=== PATIENT | male | born 1945 | race Caucasian/White ===

== ENCOUNTER 2017-07-30 12:48 | Emergency (ER) | payer BC, OTHER ==
[~2017-07-30 12:48] MED LIST: HYDROmorphone INJ 1 MG/ML SYR IV STA; HYDROmorphone INJ 1 MG/ML SYR ONE; ONDANSETRON INJ 2 MG/ML 2 ML VIAL IV STA; ONDANSETRON INJ 2 MG/ML 2 ML VIAL ONE; SODIUM CHLORIDE 0.9% 1000ML 1,000 ML IV STA
[2017-07-30] MEDS ORDERED: CEFAZOLIN SOD 1000MG/5 ML IV PUSH IV STA (12:50)
[2017-07-30] MEDS ORDERED: METRONIDAZOLE 500MG / 100ML NSS IV STA (12:56)
[2017-07-30] MEDS ORDERED: PIPERACILLIN/TAZOBACTAM 4.5 GM/100ML D5W IV STA (13:03)
[2017-07-30 13:15] LABS: BASO % 0.1 %; BASO ABS # 0.01 K/uL (0-0.2); COMPLETE YES; HEMATOCRIT 40.5 % (42-52); IG% 0.3 %; LYMPH % 49.8 %; LYMPH ABS # 4.32 K/uL (1.2-3.4); MEAN CELL VOLUME 93.8 fL (80-100); MEAN CORPUSCULAR HEMOGLOBIN 31.3 pg (25-34); MEAN CORPUSCULAR HGB CONC 33.3 g/dl (32-36); MEAN PLATELET VOLUME 10.9 fL (7.4-10.4); MONO % 6.3 %; NEUT % 42.5 %; PLATELET COUNT 158 K/uL (130-400); RED BLOOD COUNT 4.32 M/uL (4.7-6.1); WHITE BLOOD COUNT 8.67 K/uL (4.8-10.8)
[2017-07-30 13:43] LABS: ALT/SGPT 32 U/L (12-78); AST/SGOT 29 U/L (15-37); BLOOD UREA NITROGEN 14 mg/dl (7-18); BUN/CREATININE RATIO 11.4 (10-20); CALCIUM 9.2 mg/dl (8.5-10.1); CARBON DIOXIDE 25 mmol/L (21-32); CHLORIDE 105 mmol/L (98-107); CREATININE 1.25 mg/dl (0.60-1.40); GLUCOSE 134 mg/dl (70-99); POTASSIUM 3.5 mmol/L (3.5-5.1); SODIUM 139 mmol/L (136-145)
[2017-07-30 13:45] LABS: ALKALINE PHOSPHATASE 99 U/L (45-117)
--- NOTE | 2017-07-30 13:47 | EMERGENCY ROOM VISIT NOTE ---
History Report prepared by Eunice: Mike Velasquez Under the Supervision of: Dr. Blane Dinero M.D. First contact with patient: 12:47 Chief Complaint: OTHER COMPLAINT Stated Complaint: ARM INJURY History of Present Illness The patient is a 72 year old male who presents to the Emergency Room with complaints of a sudden left arm above the elbow amputation occurring 15 minutes prior to arrival. He currently rates his discomfort as a 5/10 in severity. The patient was using a manure burlap spreader, and the arm got caught. The patient denies any loss of consciousness or abdominal pain. The patient denies any past medical history. Source of History: patient Onset: 15 minutes prior to arrival Position: arm (left) Quality: other (amputation) Review of Systems See HPI for pertinent positives & negatives. A total of 10 systems reviewed and were otherwise negative. Family History Patient reports no known family medical history. Social History Smoking Status: Unknown if Ever Smoked Marital Status: Housing Status: lives with family Occupation Status: retired Current/Historical Medications Miscellaneous Medications None (Patient States No Home Meds) Allergies Coded Allergies: No Known Allergies (Unverified Allergy, Mild, 02/19/07) Physical Exam Vital Signs Date Time Temp Pulse Resp B/P (MAP) Pulse Ox O2 Delivery O2 Flow Rate FiO2 07/30/17 14:04 58 20 173/91 96 07/30/17 13:08 57 20 165/89 96 Room Air 07/30/17 13:00 52 140/83 07/30/17 13:00 52 21 140/83 95 Room Air 07/30/17 12:55 52 20 151/92 95 Room Air 07/30/17 12:52 60 07/30/17 12:48 Room Air 07/30/17 12:47 66 20 166/98 98 Room Air Physical Exam GENERAL: Patient is a healthy-appearing well-nourished male HEAD: Normocephalic atraumatic EYES: Ocular movements intact pupils equal and react to light OROPHARYNX mucous membranes are moist no exudates present no erythema or edema present NECK: Supple no nuchal rigidity CHEST: Good equal expansion LUNGS: Clear and equal to auscultation CARDIAC: Normal S1 and S2 ABDOMEN: Soft nontender no guarding BACK: No CVA tenderness EXTREMITIES: There is an amputation above the left elbow. Bleeding is controlled. Left arm is severed. NEURO: Patient is following commands and answering questions appropriately. Alert and oriented x3 Cranial Nerves 2-12 grossly intact Medical Decision & Procedures Laboratory Results 07/30/17 13:01 Red Blood Count 4.32, Mean Corpuscular Volume 93.8, Mean Corpuscular Hemoglobin 31.3, Mean Corpuscular Hemoglobin Concent 33.3, Mean Platelet Volume 10.9, Neutrophils (%) (Auto) 42.5, Lymphocytes (%) (Auto) 49.8, Monocytes (%) (Auto) 6.3, Eosinophils (%) (Auto) 1.0, Basophils (%) (Auto) 0.1, Neutrophils # (Auto) 3.67, Lymphocytes # (Auto) 4.32, Monocytes # (Auto) 0.55, Eosinophils # (Auto) 0.09, Basophils # (Auto) 0.01 07/30/17 13:01 Test 07/30/17 13:01 White Blood Count 8.67 K/uL (4.8-10.8) Red Blood Count 4.32 M/uL (4.7-6.1) Hemoglobin 13.5 g/dL (14.0-18.0) Hematocrit 40.5 % (42-52) Mean Corpuscular Volume 93.8 fL (80-100) Mean Corpuscular Hemoglobin 31.3 pg (25-34) Mean Corpuscular Hemoglobin Concent 33.3 g/dl (32-36) Platelet Count 158 K/uL (130-400) Mean Platelet Volume 10.9 fL (7.4-10.4) Neutrophils (%) (Auto) 42.5 % Lymphocytes (%) (Auto) 49.8 % Monocytes (%) (Auto) 6.3 % Eosinophils (%) (Auto) 1.0 % Basophils (%) (Auto) 0.1 % Neutrophils # (Auto) 3.67 K/uL (1.4-6.5) Lymphocytes # (Auto) 4.32 K/uL (1.2-3.4) Monocytes # (Auto) 0.55 K/uL (0.11-0.59) Eosinophils # (Auto) 0.09 K/uL (0-0.5) Basophils # (Auto) 0.01 K/uL (0-0.2) RDW Standard Deviation 43.9 fL (36.4-46.3) RDW Coefficient of Variation 12.8 % (11.5-14.5) Immature Granulocyte % (Auto) 0.3 % Immature Granulocyte # (Auto) 0.03 K/uL (0.00-0.02) Anion Gap 10.0 mmol/L (3-11) Estimated GFR () 65.8 Estimated GFR (Non- 56.8 BUN/Creatinine Ratio 11.4 (10-20) Calcium Level 9.2 mg/dl (8.5-10.1) Total Bilirubin 0.4 mg/dl (0.2-1) Direct Bilirubin < 0.1 mg/dl (0-0.2) Aspartate Amino Transf (AST/SGOT) 29 U/L (15-37) Alanine Aminotransferase (ALT/SGPT) 32 U/L (12-78) Alkaline Phosphatase 99 U/L (45-117) Total Protein 7.8 gm/dl (6.4-8.2) Albumin 3.8 gm/dl (3.4-5.0) Labs reviewed by ED physician. Medications Administered Medications (Trade) Dose Ordered Sig/Nicolle Route Start Time Stop Time Status Last Admin Dose Admin Hydromorphone HCl (Dilaudid Inj) 1 mg NOW STAT IV 07/30/17 12:48 07/30/17 12:49 DC 07/30/17 12:53 1 MG Ondansetron HCl (Zofran Inj) 4 mg NOW STAT IV 07/30/17 12:48 07/30/17 12:49 DC 07/30/17 12:53 4 MG Sodium Chloride 1,000 ml @ 999 mls/hr Q1H1M STAT IV 07/30/17 12:48 07/30/17 13:52 DC 07/30/17 12:48 999 MLS/HR Cefazolin Sodium (Cefazolin 1000mg Iv Push) 1,000 mg NOW STAT IV 07/30/17 12:50 07/30/17 12:52 DC 07/30/17 12:54 1,000 MG Metronidazole (Flagyl / Nss) 500 mg NOW STAT IV 07/30/17 12:56 07/30/17 13:01 DC 07/30/17 12:56 500 MG Piperacillin Sod/ Tazobactam Sod (Zosyn Iv) 4.5 gm NOW STAT IV 07/30/17 13:03 07/30/17 13:05 DC 07/30/17 13:03 4.5 GM ED Course 1247: Past medical records reviewed. The patient was evaluated in room B1. A complete history and physical examination was performed. 1248: Sodium Chloride 1000 ml @ 999 mls/hrIV, Zofran 4mg IV, Dilaudid 1mg IV 1250: Cefazolin Sodium 1000mg IV 1253: I discussed the patient's case with Dr. Zuniga, [facility], and he is going to accept the patient as a transfer. 1256: Flagyl/ NSS 500mg IV 1257: I spoke to Doc Fair [facility], for insurance reasons so that he could go to [place]. 1303: Zosyn 4.5gm IV 1315: The patient was ready for life flight, and he will be transferred. Medical Decision Differential diagnosis: Etiologies such as fracture, dislocation, intra-abdominal, pneumothorax, intrathoracic , intracranial, neurologic, as well as other traumatic pathologies were entertained. This is a 72-year-old male who presents emergency Department with an amputated left arm. The arm was wrapped with wet to dry dressings and double bagged and placed in ice water. Bleeding was controlled with pressure. Wet-to-dry dressings were placed. An IV was established 2, the patient was given Dilaudid , Ancef. Due to the nature the patient's injuries he was discussed with [facility] trauma team. The patient was transferred via [facility]. Due to the patient's insurance [facility] emergency department was also contacted however they cannot handle amputations. Dr. Fair approved transferred to [facility]. Patient was in agreement with the treatment plan. Medication Reconcilliation Current Medication List: was personally reviewed by me Blood Pressure Screening Patient's blood pressure: Elevated blood pressure Blood pressure disposition: Elevated BP felt to be situational Consults Time Called: 1246 Consulting Physician: Dr. Zuniga, [facility] Returned Call: [phone] I discussed the patient's case with Dr. Zuniga, [facility], and he is going to accept the patient as a transfer. Impression Primary Impression: Amputation of left arm Critical Care I have personally spent greater than 30 minutes of critical care time in the direct management of this patient. This includes bedside care, interpretation of diagnostic studies, and testing, discussion with consultants, patient, and family members, and other required patient management activities. This 30 minutes is in excess of all separately billable procedures. Scribe Attestation The scribe's documentation has been prepared under my direction and personally reviewed by me in its entirety. I confirm that the note above accurately reflects all work, treatment, procedures, and medical decision making performed by me. Departure Information Dispostion Transfer Acute Care Facility Referrals Jared Meza M.D. (PCP) Patient Instructions [facility]
[2017-07-30 14:04] VITALS: BP 173/91; PULSE 58; O2SAT 96
== END 2017-07-30 14:05 | disposition short-term general hospital (02) ==
LOC: EDSEX 12:48 → EDBD 12:48 → C.EDB 12:49
DX: S48.11 Complete traumatic amputation at level between shoulder and elbow (principal); W30.89XA Contact with other specified agricultural machinery, initial encounter; Y92.79 Other farm location as the place of occurrence of the external cause

== ENCOUNTER 2024-01-23 10:53 | Inpatient (IN) ==
[2024-01-23] MEDS: OPTIRAY 320 125ml IV ONE (10:48)
[2024-01-23] MEDS: niCARdipine 25 MG in SODIUM CHLORIDE 0.9% 240 ML IV SCH (11:17)
[2024-01-23] MEDS: STAT IV Infusion **Titration per Protocol STA (11:18)
--- NOTE | 2024-01-23 11:21 | CT Scan Report ---
HEAD CT NONCONTRAST CT DOSE: 1253.6 mGy.cm HISTORY: Left-sided weakness for neuro deficit, acute stroke suspected TECHNIQUE: Multiaxial CT images of the head were performed without the use of intravenous contrast. A utomated exposure control was utilized for this study. A dose lowering technique was utilized adheri ng to the principles of ALARA. Comparison: None. Findings: Near complete opacification of the left sphenoid sinus. The mastoid air cells are clear. Th e calvarium and skull base are intact. The ventricles and sulci are within normal limits. There is no mass, hematoma, midline shift, or acute infarct. Impression: No acute intracranial abnormality. ACT 112: Negative or not required by law. Electronically signed by: Jarad Ruby M.D. 01/23/2024 11:19 AM
[2024-01-23 11:22] LABS: Basophils # (auto) 0.02 K/uL (0.00-0.20); Basophils % (auto) 0.2 %; Eosinophils # (auto) 0.02 K/uL (0.00-0.50); Eosinophils % (auto) 0.2 %; Hematocrit (blood only) 36.6 % (42.0-52.0); Immature Granulocytes # (auto) 0.08 K/uL (0.01-0.20); Immature Granulocytes % (auto) 0.8 %; Lymphocytes # (auto) 3.69 K/uL (1.20-3.40); Lymphocytes % (auto) 35.5 %; Mean Corpuscular Hemoglobin 29.7 pg (25.0-34.0); Mean Corpuscular Hgb Conc 32.8 g/dL (32.0-36.0); Mean Corpuscular Volume 90.6 fL (80.0-100.0); Mean Platelet Volume 10.8 fL (9.4-12.4); Monocytes # (auto) 0.83 K/uL (0.11-0.59); Neutrophils # (auto) 5.75 K/uL (1.40-6.50); Neutrophils % (auto) 55.3 %; Platelet Count 162 K/uL (130-400); RDW Coefficient of Variation 12.6 % (11.5-14.5); RDW Standard Deviation 41.6 fL (36.4-46.3); Red Blood Count 4.04 M/uL (4.70-6.10); White Blood Count 10.39 K/ul (4.8-10.8)
[2024-01-23 11:24] LABS: iSTAT Creatinine 0.8 mg/dl (0.6-1.3); iSTAT Hemoglobin 11.9 g/dl (14.0-18.0); iSTAT Ionized Calcium 1.21 mmol/l (1.12-1.32); iSTAT Potassium 3.8 mmol/L (3.3-5.0)
--- NOTE | 2024-01-23 11:28 | CT Scan Report ---
HEAD & NECK CTA HISTORY: neuro deficit, acute stroke suspected TECHNIQUE: Multiaxial CT images of the head were performed following the intravenous administration o f contrast to evaluate the major cerebral vessels. Multiaxial CT images of the neck were also perform ed following the intravenous administration of contrast to evaluate the major cervical vessels. 3D/MO P images were also obtained. Sagittal and coronal reformats were reviewed. A dose lowering technique was utilized adhering to the principles of ALARA. COMPARISON: None. FINDINGS: There is no mass, hematoma, midline shift, or acute infarct. Visualized intracranial internal carotid arteries, distal vertebral arteries, and basilar artery are widely patent. There is no significant s tenosis, occlusion, or aneurysm seen within the bilateral ACAs or MCAs. There is mild to moderate mul tifocal stenosis within the proximal to mid bilateral news cameraman. . The major dural venous sinuses are oh nt. The aortic arch and proximal great vessels are widely patent. There is 1.6 cm right thyroid nodule. Mild to moderate focal narrowing at the origins of the vertebral arteries due to the calcified plaqu e. Otherwise, the remaining bilateral vertebral arteries show no significant stenosis, occlusion, or dissection. Moderate calcified plaque within the bilateral carotid bifurcations. The bilateral common carotid arteries are widely patent. No significant stenosis or occlusion within the right internal c arotid artery. There is severe focal stenosis within the takeoff of the left internal carotid artery demonstrating approximately 90% narrowing. The mid to distal left internal carotid artery is widely p atent. IMPRESSION: 1. Mild to moderate multifocal stenosis within the proximal to mid bilateral news cameraman. 2. However, no evidence for arterial occlusion or aneurysm within the major cerebral arteries. 3. High-grade stenosis at the takeoff of the left internal carotid artery of approximately 90%. 4. Mild to moderate stenosis at the takeoff of the bilateral vertebral arteries due to the calcified plaque. 5. A 1.6 cm right thyroid nodule ACT 112: Negative or not required by law. Electronically signed by: Jarad Ruby M.D. 01/23/2024 11:25 AM
--- NOTE | 2024-01-23 11:28 | CT Scan Report ---
HEAD & NECK CTA HISTORY: neuro deficit, acute stroke suspected TECHNIQUE: Multiaxial CT images of the head were performed following the intravenous administration o f contrast to evaluate the major cerebral vessels. Multiaxial CT images of the neck were also perform ed following the intravenous administration of contrast to evaluate the major cervical vessels. 3D/LA P images were also obtained. Sagittal and coronal reformats were reviewed. A dose lowering technique was utilized adhering to the principles of ALARA. COMPARISON: None. FINDINGS: There is no mass, hematoma, midline shift, or acute infarct. Visualized intracranial internal carotid arteries, distal vertebral arteries, and basilar artery are widely patent. There is no significant s tenosis, occlusion, or aneurysm seen within the bilateral ACAs or MCAs. There is mild to moderate mul tifocal stenosis within the proximal to mid bilateral water chaser. . The major dural venous sinuses are oh nt. The aortic arch and proximal great vessels are widely patent. There is 1.6 cm right thyroid nodule. Mild to moderate focal narrowing at the origins of the vertebral arteries due to the calcified plaqu e. Otherwise, the remaining bilateral vertebral arteries show no significant stenosis, occlusion, or dissection. Moderate calcified plaque within the bilateral carotid bifurcations. The bilateral common carotid arteries are widely patent. No significant stenosis or occlusion within the right internal c arotid artery. There is severe focal stenosis within the takeoff of the left internal carotid artery demonstrating approximately 90% narrowing. The mid to distal left internal carotid artery is widely p atent. IMPRESSION: 1. Mild to moderate multifocal stenosis within the proximal to mid bilateral water chaser. 2. However, no evidence for arterial occlusion or aneurysm within the major cerebral arteries. 3. High-grade stenosis at the takeoff of the left internal carotid artery of approximately 90%. 4. Mild to moderate stenosis at the takeoff of the bilateral vertebral arteries due to the calcified plaque. 5. A 1.6 cm right thyroid nodule ACT 112: Negative or not required by law. Electronically signed by: Jarad Ruby M.D. 01/23/2024 11:25 AM
[2024-01-23 11:31] LABS: Partial Thromboplastin Ratio 0.8; Partial Thromboplastin Time 22 Seconds (21-31); Prothrombin Time 10.9 Seconds (9.0-12.0)
[2024-01-23 11:41] LABS: Albumin Globulin Ratio 1.1 (0.9-2); Albumin Level 3.5 gm/dl (3.4-5.0); BUN Creatinine Ratio 18.5 (10-20); Bilirubin,Total 0.4 mg/dl (0.2-1.0); Calcium 8.8 mg/dl (8.6-10.3); Creatinine Clr Calc Pharmacy 80.1 ml/min; Est GFR (Non-African American) 84.5 ml/min; Globulin 3.2 gm/dl (2.5-4.0); Potassium 3.8 mmol/L (3.5-5.1); Total Protein 6.7 gm/dl (6.0-8.3)
[2024-01-23] MEDS ORDERED: No Aspirin within 24hrs of THROMBOLYTIC-Stroke PO SCH (11:45)
[2024-01-23] MEDS: TENECTEPLASE 19 MG in SYRINGE 0 ML IV ONE (11:45)
[2024-01-23 11:47] LABS: Troponin I High Sensitivity 7.3 pg/ml (0-20)
[2024-01-23] MEDS: SODIUM CHLORIDE 0.9% 10ML FLUSH IV STA (11:47)
[2024-01-23] MEDS: MAGNESIUM SULFATE / D5W 1 GM/100 ML BAG IV SCH (11:49)
[2024-01-23] MEDS: STAT IV/IM STA (11:51)
--- NOTE | 2024-01-23 12:03 | Emergency Department Note ---
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 Apparently at 930 this morning the patient was at amish, felt weak and sat down. The patient reportedly lost consciousness. At some point bystanders noticed that he had a left-sided facial droop. He was unable to use his left leg. The patient never woke up completely. He is repetitive with his speech. Patient apparently vomited prior to arrival with EMS. He is not on any blood thinners by report. According to his , last evening he had an episode that he reported to her, he was unable to speak, had some shaking of his left upper extremity stump which lasted a few minutes. After it was over, he was able to get up and ambulate to the bedroom where his was. She stated he was not altered and had no symptoms before this episode and at the time she was speaking to him. He was okay this morning when he woke up and got ready for amish. REVIEW OF SYSTEMS: A review of systems was performed with positives and pertinent negatives listed in the history of present illness. 10 systems were reviewed and are otherwise negative. ALLERGIES: see below MEDICATIONS: see below PMH: see below SOCIAL HISTORY: see below DDx: Ischemic stroke, arterial dissection, intracranial hemorrhage, seizure activity, intracranial mass, among others. PHYSICAL EXAM: Vital signs reviewed. Noted to be hypertensive General: Well-appearing 78-year-old male, in no significant distress. HEENT: No scleral icterus, PERRLA, neck supple. MMM Cardiovascular: Regular rate and rhythm, no extra sounds. Pulmonary: Clear to auscultation bilaterally, normal work of breathing. Abdomen: Soft, nontender, nondistended, positive bowel sounds. Musculoskeletal: Atraumatic, no peripheral edema. Left upper extremity above the elbow amputation. Neurologic: Patient somnolent but arousable, clear left-sided mouth droop, upper facial movements appear to be symmetric. Patient is unable to move the left upper stump, left leg. 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 Patient repeats "I do not know" in response to questions about age and birthdate. Skin: Warm, dry, no rash EMERGENCY DEPARTMENT COURSE/MDM: This patient was evaluated and appeared to be in no significant distress. He is somnolent but arousable. A stroke alert was called prior to the patient's arrival by EMS medical command. CT imaging of the head was performed and is negative for acute process. CT angiograms are not negative for any acute arterial occlusion however high-grade stenosis is identified in the left internal carotid artery with multifocal stenosis in the proximal and mid bilateral railcar carpenter. Dr. Presley of the telestroke at [facility] was able to consult through the stroke cart. After discussion with the patient's at the bedside, was decided that the patient is a TNKase candidate. Stroke symptoms began at 9:30 AM, patient was medicated with TNKase at 11:46 AM. He was given 2 g of IV magnesium for neuroprotective effect per Dr. Presley's request. Case has been discussed with the hospitalist service who will evaluate the patient for admission and further management. MONITORING: An order for cardiac monitoring was placed and the patient is noted to be in a NSR at 65 beats per minute. RADIOLOGY: CT imaging of the head to my interpretation reveals no evidence of acute intracranial process. Please defer to radiology is over read. CT angiogram of the head and neck per radiology: IMPRESSION: 1. Mild to moderate multifocal stenosis within the proximal to mid bilateral railcar carpenter. 2. However, no evidence for arterial occlusion or aneurysm within the major cerebral arteries. 3. High-grade stenosis at the takeoff of the left internal carotid artery of approximately 90%. 4. Mild to moderate stenosis at the takeoff of the bilateral vertebral arteries due to the calcified plaque. 5. A 1.6 cm right thyroid nodule EKG: To my interpretation reveals normal sinus rhythm at 64 bpm. Minimal criteria for LVH. QTc of 455. No PVC, no PAC. Normal ST segments. DISPOSITION: Admission I have personally spent greater than 50 minutes of critical care time in the direct management of this patient. This includes bedside care, interpretation of diagnostic studies, and testing, discussion with consultants, patient, and family members, and other required patient management activities. This 50 minutes is in excess of all separately billable procedures. Past Med/Surg History Medical History Lyme disease Surgical History Amputation of left arm Family History Father Myocardial infarction Coronary heart disease Social History Smoking Status: Never smoker Hx Alcohol Use: Yes Hx Substance Use: No Preferred Language: Moldovan Communication Ability: Effective Hearing Ability: Normal marital status: Current Living Situation: Spouse current occupational status: retired Feels Safe at Home: Yes Seatbelt Use: always Sunscreen Use: No Allergies Allergies Allergy/AdvReac Type Severity Reaction Status Date / Time No Known Allergies Allergy Mild Verified 01/23/24 13:51 Home Meds Home Medications Medication Instructions Recorded Confirmed ascorbic acid (vitamin C) 500 mg 1,000 mg PO DAILY 01/23/24 01/23/24 tablet (Vitamin C) multivitamin 1 tab PO DAILY 01/23/24 01/23/24 Results & Data (ED) Vital Signs Vital Signs - 24 hr 01/23/24 11:00 01/23/24 11:03 01/23/24 11:06 Pulse Rate 68 64 67 Pulse Rate [Apical] Pulse Rate from SpO2 Sensor Pulse Rhythm Regular Pulse Rhythm [Apical] Pulse Strength Normal Pulse Strength [Apical] Respiratory Rate 15 22 Respiratory Effort / Characteristics Non-Labored Respiratory Depth Normal Respiratory Pattern Regular Blood Pressure 182/105 H 195/102 H Blood Pressure [Right Arm] Blood Pressure Mean 130 133 Blood Pressure Mean [Right Arm] Blood Pressure Position Lying Blood Pressure Position [Right Arm] Pulse Oximetry 99 95 Oxygen Delivery Method Room Air Oxygen Flow Rate Sepsis Recent Fever Within 48 Hours No Sepsis New/Unexplained Change in Mental Status No Sepsis Action Taken by Nursing No Action Required 01/23/24 11:20 01/23/24 11:20 01/23/24 11:30 Pulse Rate 65 68 65 Pulse Rate [Apical] Pulse Rate from SpO2 Sensor 68 Pulse Rhythm Pulse Rhythm [Apical] Pulse Strength Pulse Strength [Apical] Respiratory Rate 22 16 23 Respiratory Effort / Characteristics Respiratory Depth Respiratory Pattern Blood Pressure 172/100 H 172/100 H 181/95 H Blood Pressure [Right Arm] Blood Pressure Mean 124 124 123 Blood Pressure Mean [Right Arm] Blood Pressure Position Blood Pressure Position [Right Arm] Pulse Oximetry 94 95 90 Oxygen Delivery Method Room Air Room Air Oxygen Flow Rate Sepsis Recent Fever Within 48 Hours Sepsis New/Unexplained Change in Mental Status Sepsis Action Taken by Nursing 01/23/24 11:35 01/23/24 11:40 01/23/24 11:45 Pulse Rate 65 65 Pulse Rate [Apical] 65 Pulse Rate from SpO2 Sensor Pulse Rhythm Pulse Rhythm [Apical] Pulse Strength Pulse Strength [Apical] Respiratory Rate 18 23 23 Respiratory Effort / Characteristics Non-Labored Respiratory Depth Normal Respiratory Pattern Regular Blood Pressure 177/92 H 169/96 H Blood Pressure [Right Arm] 172/93 H Blood Pressure Mean 120 120 Blood Pressure Mean [Right Arm] 119 Blood Pressure Position Blood Pressure Position [Right Arm] Pulse Oximetry 93 93 93 Oxygen Delivery Method Room Air Room Air Room Air Oxygen Flow Rate Sepsis Recent Fever Within 48 Hours Sepsis New/Unexplained Change in Mental Status Sepsis Action Taken by Nursing 01/23/24 11:45 01/23/24 11:51 01/23/24 12:00 Pulse Rate 65 63 Pulse Rate [Apical] 62 Pulse Rate from SpO2 Sensor Pulse Rhythm Pulse Rhythm [Apical] Regular Pulse Strength Pulse Strength [Apical] Normal Respiratory Rate 19 19 15 Respiratory Effort / Characteristics Non-Labored Spontaneous Respiratory Depth Normal Respiratory Pattern Regular Blood Pressure 172/93 H 160/93 H Blood Pressure [Right Arm] 166/97 H Blood Pressure Mean 121 115 Blood Pressure Mean [Right Arm] 120 Blood Pressure Position Blood Pressure Position [Right Arm] Lying Pulse Oximetry 90 94 94 Oxygen Delivery Method Nasal Cannula Nasal Cannula Oxygen Flow Rate 2 2 Sepsis Recent Fever Within 48 Hours Sepsis New/Unexplained Change in Mental Status Sepsis Action Taken by Nursing 01/23/24 12:00 01/23/24 12:10 01/23/24 12:15 Pulse Rate 63 60 Pulse Rate [Apical] 59 L Pulse Rate from SpO2 Sensor Pulse Rhythm Pulse Rhythm [Apical] Pulse Strength Pulse Strength [Apical] Respiratory Rate 22 24 17 Respiratory Effort / Characteristics Non-Labored Spontaneous Respiratory Depth Normal Respiratory Pattern Regular Blood Pressure 166/97 H 170/90 H Blood Pressure [Right Arm] 181/100 H Blood Pressure Mean 120 116 Blood Pressure Mean [Right Arm] 127 Blood Pressure Position Blood Pressure Position [Right Arm] Pulse Oximetry 96 96 95 Oxygen Delivery Method Nasal Cannula Nasal Cannula Oxygen Flow Rate 2 2 Sepsis Recent Fever Within 48 Hours Sepsis New/Unexplained Change in Mental Status Sepsis Action Taken by Nursing 01/23/24 12:20 01/23/24 12:30 05/05/24 12:40 Pulse Rate 59 L 60 Pulse Rate [Apical] 60 Pulse Rate from SpO2 Sensor Pulse Rhythm Pulse Rhythm [Apical] Regular Pulse Strength Pulse Strength [Apical] Normal Respiratory Rate 18 17 21 Respiratory Effort / Characteristics Non-Labored Spontaneous Respiratory Depth Normal Respiratory Pattern Regular Blood Pressure 169/91 H 189/107 H Blood Pressure [Right Arm] 165/94 H Blood Pressure Mean 117 134 Blood Pressure Mean [Right Arm] 117 Blood Pressure Position Blood Pressure Position [Right Arm] Lying Pulse Oximetry 96 94 97 Oxygen Delivery Method Nasal Cannula Nasal Cannula Nasal Cannula Oxygen Flow Rate 2 2 2 Sepsis Recent Fever Within 48 Hours Sepsis New/Unexplained Change in Mental Status Sepsis Action Taken by Nursing 01/23/24 12:45 01/23/24 12:51 01/23/24 13:00 Pulse Rate 61 Pulse Rate [Apical] 61 65 Pulse Rate from SpO2 Sensor Pulse Rhythm Pulse Rhythm [Apical] Regular Regular Pulse Strength Pulse Strength [Apical] Normal Normal Respiratory Rate 24 24 22 Respiratory Effort / Characteristics Non-Labored Spontaneous Non-Labored Respiratory Depth Normal Normal Respiratory Pattern Regular Regular Blood Pressure 172/101 H Blood Pressure [Right Arm] 181/106 H 173/102 H Blood Pressure Mean 124 Blood Pressure Mean [Right Arm] 131 125 Blood Pressure Position Blood Pressure Position [Right Arm] Pulse Oximetry 96 94 95 Oxygen Delivery Method Nasal Cannula Nasal Cannula Nasal Cannula Oxygen Flow Rate 2 2 2 Sepsis Recent Fever Within 48 Hours Sepsis New/Unexplained Change in Mental Status Sepsis Action Taken by Nursing 01/23/24 13:05 01/23/24 13:10 01/23/24 13:15 Pulse Rate 69 68 Pulse Rate [Apical] 63 Pulse Rate from SpO2 Sensor Pulse Rhythm Pulse Rhythm [Apical] Regular Pulse Strength Pulse Strength [Apical] Normal Respiratory Rate 23 17 15 Respiratory Effort / Characteristics Non-Labored Spontaneous Respiratory Depth Normal Respiratory Pattern Regular Blood Pressure 169/98 H 164/95 H Blood Pressure [Right Arm] 163/103 H Blood Pressure Mean 121 118 Blood Pressure Mean [Right Arm] 123 Blood Pressure Position Blood Pressure Position [Right Arm] Pulse Oximetry 96 94 96 Oxygen Delivery Method Nasal Cannula Nasal Cannula Nasal Cannula Oxygen Flow Rate 2 2 2 Sepsis Recent Fever Within 48 Hours Sepsis New/Unexplained Change in Mental Status Sepsis Action Taken by Nursing 01/23/24 13:20 01/23/24 13:30 01/23/24 13:40 Pulse Rate 63 65 Pulse Rate [Apical] 64 Pulse Rate from SpO2 Sensor Pulse Rhythm Pulse Rhythm [Apical] Regular Pulse Strength Pulse Strength [Apical] Respiratory Rate 21 21 20 Respiratory Effort / Characteristics Non-Labored Respiratory Depth Normal Respiratory Pattern Regular Blood Pressure 168/85 H 136/100 Blood Pressure [Right Arm] 172/101 H Blood Pressure Mean 112 112 Blood Pressure Mean [Right Arm] 124 Blood Pressure Position Blood Pressure Position [Right Arm] Pulse Oximetry 97 93 95 Oxygen Delivery Method Nasal Cannula Nasal Cannula Nasal Cannula Oxygen Flow Rate 2 2 2 Sepsis Recent Fever Within 48 Hours Sepsis New/Unexplained Change in Mental Status Sepsis Action Taken by Nursing 01/23/24 13:40 01/23/24 13:45 Pulse Rate 65 Pulse Rate [Apical] 63 Pulse Rate from SpO2 Sensor Pulse Rhythm Pulse Rhythm [Apical] Pulse Strength Pulse Strength [Apical] Respiratory Rate 20 22 Respiratory Effort / Characteristics Non-Labored Spontaneous Respiratory Depth Normal Respiratory Pattern Regular Blood Pressure 136/100 Blood Pressure [Right Arm] 168/97 H Blood Pressure Mean 113 Blood Pressure Mean [Right Arm] 120 Blood Pressure Position Blood Pressure Position [Right Arm] Pulse Oximetry 96 93 Oxygen Delivery Method Nasal Cannula Nasal Cannula Oxygen Flow Rate 2 2 Sepsis Recent Fever Within 48 Hours Sepsis New/Unexplained Change in Mental Status Sepsis Action Taken by Jail Medications Current Medication List: was personally reviewed by me Laboratory Data Attestation: I reviewed the patient's lab results. 01/23/24 11:09 01/23/24 11:09 Lab Results 01/23/24 01/23/24 01/23/24 Range/Units 11:07 11:07 11:09 WBC 10.39 (4.8-10.8) K/ul RBC 4.04 L (4.70-6.10) M/uL Hgb 12.0 L (14.0-18.0) g/dl POC Hgb (14.0-18.0) g/dl Hct 36.6 L (42.0-52.0) % POC Hct (42-52) % MCV 90.6 (80.0-100.0) fL MCH 29.7 (25.0-34.0) pg MCHC 32.8 (32.0-36.0) g/dL RDW Std Deviation 41.6 (36.4-46.3) fL RDW Coeff of Cherrie 12.6 (11.5-14.5) % Plt Count 162 (130-400) K/uL MPV 10.8 (9.4-12.4) fL Immature Gran % (Auto) 0.8 % Neut % (Auto) 55.3 % Lymph % (Auto) 35.5 % [place] % (Auto) 8.0 % Eos % (Auto) 0.2 % Baso % (Auto) 0.2 % Neut # (Auto) 5.75 (1.40-6.50) K/uL Lymph # (Auto) 3.69 H (1.20-3.40) K/uL [place] # (Auto) 0.83 H (0.11-0.59) K/uL Eos # (Auto) 0.02 (0.00-0.50) K/uL Baso # (Auto) 0.02 (0.00-0.20) K/uL Immature Gran # (Auto) 0.08 (0.01-0.20) K/uL PT 10.9 (9.0-12.0) Seconds INR 1.0 (0.9-1.1) APTT 22 (21-31) Seconds PTT Ratio 0.8 POC Sodium (135-144) mmol/L Sodium 135 L (136-145) mmol/L POC Potassium (3.3-5.0) mmol/L Potassium 3.8 (3.5-5.1) mmol/L POC Chloride (101-112) mmol/L Chloride 101 (98-107) mmol/L Carbon Dioxide 26 (21-32) mmol/L POC Total CO2 (24-31) mmol/L Anion Gap 8 (3-11) POC Anion Gap (16-25) mmol/L POC BUN (7-18) mg/dl BUN 15 (6-23) mg/dl Creatinine 0.81 (0.6-1.4) mg/dl POC Creatinine (0.6-1.3) mg/dl Est Cr Clr Drug Dosing 80.1 ml/min Est GFR ( Amer) 98.0 ml/min Est GFR (Non-Af Amer) 84.5 ml/min BUN/Creatinine Ratio 18.5 (10-20) Glucose 158 H (70-99(Fasting)) mg/dl POC Glucose (other) (70-99) mg/dl Lactate Cancelled 2.1 H* Calcium 8.8 (8.6-10.3) mg/dl POC Ioniz Calcium [place] (1.12-1.32) mmol/l Magnesium 2.0 (1.7-2.4) mg/dl Total Bilirubin 0.4 (0.2-1.0) mg/dl AST 35 (13-39) U/L ALT 33 (7-52) U/L Alkaline Phosphatase 75 (34-104) U/L Troponin I High Sens 7.3 (0-20) pg/ml Total Protein 6.7 (6.0-8.3) gm/dl Albumin 3.5 (3.4-5.0) gm/dl Globulin 3.2 (2.5-4.0) gm/dl Albumin/Globulin Ratio 1.1 (0.9-2) Urine Color Urine Appearance (Clear) Urine pH (4.5-7.5) Ur Specific [place] (1.000-1.030) Urine Protein (Negative) Urine Glucose (UA) (Negative) Urine Ketones (Negative) Urine Blood (Negative) Urine Nitrite (Negative) Urine Bilirubin (Negative) Urine Urobilinogen (Negative) Ur Leukocyte Esterase (Negative) 01/23/24 01/23/24 01/23/24 Range/Units 11:12 13:01 13:17 WBC (4.8-10.8) K/ul RBC (4.70-6.10) M/uL Hgb (14.0-18.0) g/dl POC Hgb 11.9 L (14.0-18.0) g/dl Hct (42.0-52.0) % POC Hct 35 L (42-52) % MCV (80.0-100.0) fL MCH (25.0-34.0) pg MCHC (32.0-36.0) g/dL RDW Std Deviation (36.4-46.3) fL RDW Coeff of Cherrie (11.5-14.5) % Plt Count (130-400) K/uL MPV (9.4-12.4) fL Immature Gran % (Auto) % Neut % (Auto) % Lymph % (Auto) % [place] % (Auto) % Eos % (Auto) % Baso % (Auto) % Neut # (Auto) (1.40-6.50) K/uL Lymph # (Auto) (1.20-3.40) K/uL [place] # (Auto) (0.11-0.59) K/uL Eos # (Auto) (0.00-0.50) K/uL Baso # (Auto) (0.00-0.20) K/uL Immature Gran # (Auto) (0.01-0.20) K/uL PT (9.0-12.0) Seconds INR (0.9-1.1) APTT (21-31) Seconds PTT Ratio POC Sodium 136 (135-144) mmol/L Sodium (136-145) mmol/L POC Potassium 3.8 (3.3-5.0) mmol/L Potassium (3.5-5.1) mmol/L POC Chloride 99 L (101-112) mmol/L Chloride (98-107) mmol/L Carbon Dioxide (21-32) mmol/L POC Total CO2 24 (24-31) mmol/L Anion Gap (3-11) POC Anion Gap 17.0 (16-25) mmol/L POC BUN 15 (7-18) mg/dl BUN (6-23) mg/dl Creatinine (0.6-1.4) mg/dl POC Creatinine 0.8 (0.6-1.3) mg/dl Est Cr Clr Drug Dosing ml/min Est GFR ( Amer) ml/min Est GFR (Non-Af Amer) ml/min BUN/Creatinine Ratio (10-20) Glucose (70-99(Fasting)) mg/dl POC Glucose (other) 151 H (70-99) mg/dl Lactate 1.4 Calcium (8.6-10.3) mg/dl POC Ioniz Calcium [place] 1.21 (1.12-1.32) mmol/l Magnesium (1.7-2.4) mg/dl Total Bilirubin (0.2-1.0) mg/dl AST (13-39) U/L ALT (7-52) U/L Alkaline Phosphatase (34-104) U/L Troponin I High Sens (0-20) pg/ml Total Protein (6.0-8.3) gm/dl Albumin (3.4-5.0) gm/dl Globulin (2.5-4.0) gm/dl Albumin/Globulin Ratio (0.9-2) Urine Color Yellow Urine Appearance Clear (Clear) Urine pH 7.5 (4.5-7.5) Ur Specific [place] 1.036 H (1.000-1.030) Urine Protein Negative (Negative) Urine Glucose (UA) Negative (Negative) Urine Ketones Negative (Negative) Urine Blood Negative (Negative) Urine Nitrite Negative (Negative) Urine Bilirubin Negative (Negative) Urine Urobilinogen Negative (Negative) Ur Leukocyte Esterase Negative (Negative) Administered Medications Nicardipine HCl 25 mg/ Sodium (Chloride) 250 mls @ 0 mls/hr IV .Q0M [facility]; Protocol Stop: 02/22/24 11:14 Last Titration: 01/23/24 13:13 Dose: 0 mg/hr, 0 mls/hr Documented By: Titration: 01/23/24 12:43 Dose: 2.5 mg/hr, 25 mls/hr Documented By: Titration: 01/23/24 11:44 Dose: 0 mg/hr, 0 mls/hr Documented By: Titration: 01/23/24 11:32 Dose: 2.5 mg/hr, 25 mls/hr Documented By: Titration: 01/23/24 11:22 Dose: 0 mg/hr, 0 mls/hr Documented By: Admin: 01/23/24 11:17 Dose: 5 mg/hr, 50 mls/hr Documented By: OAC Co-signed By: NH Discontinued Medications Tenecteplase 19 mg/ Syringe 3.8 mls @ 45.6 mls/min IV NOW ONE; Protocol Stop: 01/23/24 11:53 Last Admin: 01/23/24 11:45 Dose: 45.6 mls/min Documented By: OAC Co-signed By: HS Magnesium Sulfate/Dextrose (Magnesium Sulfate / D5w) 1 gm in 100 mls @ 200 mls/hr IV Q30M [facility] Stop: 01/23/24 12:45 Last Infusion: 01/23/24 12:40 Dose: Infused Documented By: Admin: 01/23/24 12:10 Dose: 200 mls/hr Documented By: Infusion: 01/23/24 12:10 Dose: Infused Documented By: Admin: 01/23/24 11:49 Dose: 200 mls/hr Documented By: OAC Ioversol (Optiray 320 125ml) 119 ml IV ONCE ONE Stop: 01/23/24 10:49 Last Admin: 01/23/24 10:48 Dose: 119 ml Documented By: GAGAN Fullercellaneous (Stat Iv Infusion Titration Per Protocol) 1 each N/A NOW STA Stop: 01/23/24 11:08 Last Admin: 01/23/24 11:18 Dose: 1 each Documented By: MOHAMUD Miscellaneous (Stat Iv/Im) 1 each N/A NOW STA Stop: 01/23/24 11:43 Last Admin: 01/23/24 11:51 Dose: 1 each Documented By: MOHAMUD Sodium Chloride (Sodium Chloride 0.9% 10ml Flush) 20 ml IV NOW STA Stop: 01/23/24 11:43 Last Admin: 01/23/24 11:47 Dose: 20 ml Documented By: MOHAMUD Imaging Data Radiologist's Impression: Head CT 01/23/24 10:[address] DOSE: 1253.6 mGy.cm HISTORY: Left-sided weakness for neuro deficit, acute stroke suspected TECHNIQUE: Multiaxial CT images of the head were performed without the use of intravenous contrast. Automated exposure control was utilized for this study. A dose lowering technique was utilized adhering to the principles of ALARA. Comparison: None. Findings: Near complete opacification of the left sphenoid sinus. The mastoid air cells are clear. The calvarium and skull base are intact. The ventricles and sulci are within normal limits. There is no mass, hematoma, midline shift, or acute infarct. Impression: No acute intracranial abnormality. ACT 112: Negative or not required by law. Electronically signed by: Jarad Ruby M.D. 01/23/2024 11:19 AM Head CTA 01/23/24 10:39 HEAD & NECK CTA HISTORY: neuro deficit, acute stroke suspected TECHNIQUE: Multiaxial CT images of the head were performed following the intravenous administration of contrast to evaluate the major cerebral vessels. Multiaxial CT images of the neck were also performed following the intravenous administration of contrast to evaluate the major cervical vessels. 3D/MIP images were also obtained. Sagittal and coronal reformats were reviewed. A dose lowering technique was utilized adhering to the principles of ALARA. COMPARISON: None. FINDINGS: There is no mass, hematoma, midline shift, or acute infarct. Visualized intracranial internal carotid arteries, distal vertebral arteries, and basilar artery are widely patent. There is no significant stenosis, occlusion, or aneurysm seen within the bilateral ACAs or MCAs. There is mild to moderate multifocal stenosis within the proximal to mid bilateral railcar carpenter. . The major dural venous sinuses are patent. The aortic arch and proximal great vessels are widely patent. There is 1.6 cm right thyroid nodule. Mild to moderate focal narrowing at the origins of the vertebral arteries due to the calcified plaque. Otherwise, the remaining bilateral vertebral arteries show no significant stenosis, occlusion, or dissection. Moderate calcified plaque within the bilateral carotid bifurcations. The bilateral common carotid arteries are widely patent. No significant stenosis or occlusion within the right internal carotid artery. There is severe focal stenosis within the takeoff of the left internal carotid artery demonstrating approximately 90% narrowing. The mid to distal left internal carotid artery is widely patent. IMPRESSION: 1. Mild to moderate multifocal stenosis within the proximal to mid bilateral railcar carpenter. 2. However, no evidence for arterial occlusion or aneurysm within the major cerebral arteries. 3. High-grade stenosis at the takeoff of the left internal carotid artery of approximately 90%. 4. Mild to moderate stenosis at the takeoff of the bilateral vertebral arteries due to the calcified plaque. 5. A 1.6 cm right thyroid nodule ACT 112: Negative or not required by law. Electronically signed by: Jarad Ruby M.D. 01/23/2024 11:25 AM Neck CTA 01/23/24 10:39 HEAD & NECK CTA HISTORY: neuro deficit, acute stroke suspected TECHNIQUE: Multiaxial CT images of the head were performed following the intravenous administration of contrast to evaluate the major cerebral vessels. Multiaxial CT images of the neck were also performed following the intravenous administration of contrast to evaluate the major cervical vessels. 3D/MIP images were also obtained. Sagittal and coronal reformats were reviewed. A dose lowering technique was utilized adhering to the principles of ALARA. COMPARISON: None. FINDINGS: There is no mass, hematoma, midline shift, or acute infarct. Visualized intracranial internal carotid arteries, distal vertebral arteries, and basilar artery are widely patent. There is no significant stenosis, occlusion, or aneurysm seen within the bilateral ACAs or MCAs. There is mild to moderate multifocal stenosis within the proximal to mid bilateral railcar carpenter. . The major dural venous sinuses are patent. The aortic arch and proximal great vessels are widely patent. There is 1.6 cm right thyroid nodule. Mild to moderate focal narrowing at the origins of the vertebral arteries due to the calcified plaque. Otherwise, the remaining bilateral vertebral arteries show no significant stenosis, occlusion, or dissection. Moderate calcified plaque within the bilateral carotid bifurcations. The bilateral common carotid arteries are widely patent. No significant stenosis or occlusion within the right internal carotid artery. There is severe focal stenosis within the takeoff of the left internal carotid artery demonstrating approximately 90% narrowing. The mid to distal left internal carotid artery is widely patent. IMPRESSION: 1. Mild to moderate multifocal stenosis within the proximal to mid bilateral railcar carpenter. 2. However, no evidence for arterial occlusion or aneurysm within the major cerebral arteries. 3. High-grade stenosis at the takeoff of the left internal carotid artery of approximately 90%. 4. Mild to moderate stenosis at the takeoff of the bilateral vertebral arteries due to the calcified plaque. 5. A 1.6 cm right thyroid nodule ACT 112: Negative or not required by law. Electronically signed by: Jarad Ruby M.D. 01/23/2024 11:25 AM Discharge Plan Visit Data Chief Complaint: Stroke Alert ED Provider: Faith Oropeza Discharge Problem: Cerebrovascular accident Forms Stand Alone Forms: [facility] [place] [employer] Prescriptions Prescriptions: No Action multivitamin Tablet 1 tab PO DAILY ascorbic acid (vitamin C) [Vitamin C] 500 mg Tablet 1,000 mg PO DAILY Referrals Referrals: Ashleigh Van DC [Primary Care Provider] - Discharge Problem: Cerebrovascular accident Qualifiers: CVA mechanism: embolism Precerebral and cerebral artery: unspecified cerebral artery Qualified Code(s): I63.40 - Cerebral infarction due to embolism of unspecified cerebral artery
--- NOTE | 2024-01-23 13:14 | History & Physical Report ---
Date of Service January 23, 2024 Assessment & Plan (1) Stroke-like symptoms: Plan: Suspect acute CVA pending Brain MRI for confirmation TTE History of Present Illness Chief Complaint: Strokelike symptoms Primary Care Provider: Ashleigh Van DC Armand Fermin is a 78 year old male who presents to the ER with stroke-like s ymptoms. Last known well at 9:30 AM. He was at [facility] and found to be slumped. Per EMS he is not moving his left side and was noted to have a left-sided facial droop and therefore became a stroke alert in the emergency room. He was given TNK at 11:45 AM. Allergies Allergy/AdvReac Type Severity Reaction Status Date / Time No Known Allergies Allergy Mild Verified 02/06/20 22:38 Past Med/Surg History Medical History Lyme disease Surgical History Amputation of left arm Family History Father Myocardial infarction Coronary heart disease Social History Smoking Status: Never smoker Hx Alcohol Use: Yes Hx Substance Use: No Preferred Language: German Communication Ability: Effective Hearing Ability: Normal marital status: Current Living Situation: Spouse current occupational status: retired Feels Safe at Home: Yes Seatbelt Use: always Sunscreen Use: No Results & Data Results & Data Vital Signs (Past 12 Hours) Vital Signs Pulse Pulse Resp BP BP Pulse Ox O2 Del Method 01/23/24 13:05 69 23 169/98 H 96 Nasal Cannula 01/23/24 13:00 65 22 173/102 H 95 Nasal Cannula 01/23/24 12:51 61 24 172/101 H 94 Nasal Cannula 01/23/24 12:45 61 24 181/106 H 96 Nasal Cannula 01/23/24 12:40 60 21 189/107 H 97 Nasal Cannula 01/23/24 12:30 60 17 165/94 H 94 Nasal Cannula 01/23/24 12:20 59 L 18 169/91 H 96 Nasal Cannula 01/23/24 12:15 59 L 17 181/100 H 95 Nasal Cannula 01/23/24 12:10 60 24 170/90 H 96 Nasal Cannula 01/23/24 12:00 63 22 166/97 H 96 01/23/24 12:00 62 15 166/97 H 94 Nasal Cannula 01/23/24 11:51 63 19 160/93 H 94 Nasal Cannula 01/23/24 11:45 65 19 172/93 H 90 01/23/24 11:45 65 23 172/93 H 93 Room Air 01/23/24 11:40 65 23 169/96 H 93 Room Air 01/23/24 11:35 65 18 177/92 H 93 Room Air 01/23/24 11:30 65 23 181/95 H 90 Room Air 01/23/24 11:20 68 16 172/100 H 95 01/23/24 11:20 65 22 172/100 H 94 Room Air 01/23/24 11:06 67 01/23/24 11:03 64 22 195/102 H 95 Room Air 01/23/24 11:00 68 15 182/105 H 99 O2 Flow Rate 01/23/24 13:05 2 01/23/24 13:00 2 01/23/24 12:51 2 01/23/24 12:45 2 01/23/24 12:40 2 01/23/24 12:30 2 01/23/24 12:20 2 01/23/24 12:15 2 01/23/24 12:10 2 01/23/24 12:00 01/23/24 12:00 2 01/23/24 11:51 2 01/23/24 11:45 01/23/24 11:45 01/23/24 11:40 01/23/24 11:35 01/23/24 11:30 01/23/24 11:20 01/23/24 11:20 01/23/24 11:06 01/23/24 11:03 01/23/24 11:00 Laboratory Results Abnormal lab results 01/23/24 01/23/24 01/23/24 Range/Units 11:07 11:09 11:12 RBC 4.04 L (4.70-6.10) M/uL Hgb 12.0 L (14.0-18.0) g/dl POC Hgb 11.9 L (14.0-18.0) g/dl Hct 36.6 L (42.0-52.0) % POC Hct 35 L (42-52) % Lymph # (Auto) 3.69 H (1.20-3.40) K/uL Bates # (Auto) 0.83 H (0.11-0.59) K/uL Sodium 135 L (136-145) mmol/L POC Chloride 99 L (101-112) mmol/L Glucose 158 H (70-99(Fasting)) mg/dl POC Glucose (other) 151 H (70-99) mg/dl Lactate 2.1 H* (0.4-2.0) mmol/L Diagnostic Findings HEAD CT NONCONTRAST CT DOSE: 1253.6 mGy.cm HISTORY: Left-sided weakness for neuro deficit, acute stroke suspected TECHNIQUE: Multiaxial CT images of the head were performed without the use of intravenous contrast. Automated exposure control was utilized for this study. A dose lowering technique was utilized adhering to the principles of ALARA. Comparison: None. Findings: Near complete opacification of the left sphenoid sinus. The mastoid air cells are clear. The calvarium and skull base are intact. The ventricles and sulci are within normal limits. There is no mass, hematoma, midline shift, or acute infarct. Impression: No acute intracranial abnormality. HEAD & NECK CTA HISTORY: neuro deficit, acute stroke suspected TECHNIQUE: Multiaxial CT images of the head were performed following the intravenous administration of contrast to evaluate the major cerebral vessels. Multiaxial CT images of the neck were also performed following the intravenous administration of contrast to evaluate the major cervical vessels. 3D/MIP images were also obtained. Sagittal and coronal reformats were reviewed. A dose lowering technique was utilized adhering to the principles of ALARA. COMPARISON: None. FINDINGS: There is no mass, hematoma, midline shift, or acute infarct. Visualized intracranial internal carotid arteries, distal vertebral arteries, and basilar artery are widely patent. There is no significant stenosis, occlusion, or aneurysm seen within the bilateral ACAs or MCAs. There is mild to moderate multifocal stenosis within the proximal to mid bilateral cat dog or other pet groomer. . The major dural venous sinuses are patent. The aortic arch and proximal great vessels are widely patent. There is 1.6 cm right thyroid nodule. Mild to moderate focal narrowing at the origins of the vertebral arteries due to the calcified plaque. Otherwise, the remaining bilateral vertebral arteries show no significant stenosis, occlusion, or dissection. Moderate calcified plaque within the bilateral carotid bifurcations. The bilateral common carotid arteries are widely patent. No significant stenosis or occlusion within the right internal carotid artery. There is severe focal stenosis within the takeoff of the left internal carotid artery demonstrating approximately 90% narrowing. The mid to distal left internal carotid artery is widely patent. IMPRESSION: 1. Mild to moderate multifocal stenosis within the proximal to mid bilateral cat dog or other pet groomer. 2. However, no evidence for arterial occlusion or aneurysm within the major cerebral arteries. 3. High-grade stenosis at the takeoff of the left internal carotid artery of approximately 90%. 4. Mild to moderate stenosis at the takeoff of the bilateral vertebral arteries due to the calcified plaque. 5. A 1.6 cm right thyroid nodule Medications Administered ER medications given: Tenecteplase 19 mg IV Magnesium sulfate 1 g IV Nicardipine drip - started at 5 mg/h, currently at 0 mg /h ECG Rate (beats per minute): 64 Rhythm: normal sinus Findings: no acute ischemic change Comparison ECG Date: no prior available Code Status & VTE Plan Code Status Full VTE Prophylaxis Plan VTE Prophylaxis will be ordered: Yes PG Care Time/CCT Total # of Minutes Spent Total Time Spent with Patient: Total time spent is greater than 50% in coordination of care (as documented) at patient's floor/unit and/or counseling patient: Coding Diagnoses Stroke-like symptoms R29.90
[2024-01-23 13:32] LABS: Appearance Urine Clear (Clear); Bilirubin Urine Negative (Negative); Blood Urine Negative (Negative); Color Urine Yellow; Glucose Urine UA Negative (Negative); Ketones Urine Negative (Negative); Leukocyte Esterase Urine Negative (Negative); Nitrite Urine Negative (Negative); Protein Urine Negative (Negative); Specific Gravity Urine 1.036 (1.000-1.030); Urobilinogen Urine Negative (Negative); pH Urine 7.5 (4.5-7.5)
--- NOTE | 2024-01-23 14:17 | History & Physical Report ---
Date of Service January 23, 2024 Assessment & Plan (1) Cerebrovascular accident: (2) Elevated blood pressure, situational: Plan: Patient is 78 year old male with PMH chronic anemia, history traumatic LUE injury and amputation, phantom limb pain, presented to ER with c/o stroke like symptoms today. Reported around 09:30 today unable to stand had noted left sided weakness, left facial droop, dysphasia. Upon arrival to ER patient noted with difficulty of speech, left sided weakness and left facial droop. Presenting BP: 172/100 CT head: No acute intracranial abnormality. CTA head and neck: 1. Mild to moderate multifocal stenosis within the proximal to mid bilateral ladle handler. 2. However, no evidence for arterial occlusion or aneurysm within the major cerebral arteries. 3. High-grade stenosis at the takeoff of the left internal carotid artery of approximately 90%. 4. Mild to moderate stenosis at the takeoff of the bilateral vertebral arteries due to the calcified plaque. 5. A 1.6 cm right thyroid nodule Telestroke evaluation. He received TNKase in the ER around 11:45 am. Nicardipine drip started in the ER as BP: 189/107 Patient still with left sided weakness, left facial droop, difficulty with speech upon evaluation around 1430 Monitor in ICU MRI brain Echo with bubble study CBC, BMP, lipids, A1c, TSH in am Aspiration precautions PT/OT consult Would plan to start statin when passes dysphagia screen Hold aspirin for now given TNK Neurology consult (3) Amputation of left arm: Plan: History trauma LUE with amputation left arm. History phantom limb pain (4) Chronic anemia: Plan: Hgb: 12. Was in 12's in 2019. Patient has refused labs past several years Follow CBC #Thyroid nodule A 1.6 cm right thyroid nodule noted on CTA neck TSH in AM Will need further followed outpatient DVT Prophylaxis SCDs as received TNK DNR/DNI as per discussion with patient and patient's Follows with Dr Jackson for routine care Pt was seen and care coordinated with Dr Bird See addendum I spent a total of 76 minutes reviewing notes, outpatient records, labs, medication, coordinating, documenting and providing care for this patient excluding time spent in the performance of separately billed services. History of Present Illness Chief Complaint: Stroke symptoms Primary Care Provider: Ashleigh Van DC Patient is 78 year old male with PMH chronic anemia, history traumatic LUE injury and amputation, phantom limb pain, presented to ER with c/o stroke like symptoms today. at bedside and assists with history as patient not able to provide much history. States yesterday had episode where he couldn't speak around 4pm and he tried to yell to his but was unable to. states he was in living room and she was in kitchen and unaware he was having difficulty until he came and told her this happened. When he told her this he had no active symptoms and his speech was normal and didn't have any extremity weakness. He was fine rest of day. He cannot give any further history. Today woke up and felt fine. Went to adventist and was fine however during adventist was sitting and was unable to stand up. It was noticed patient had left sided facial droop and couldn't move left side of body. This reported around 09:30 today. Patient complains of numbness to left side of body. Upon arrival to ER patient noted with difficulty of speech, left sided weakness and left facial droop. Telestroke evaluation. He received TNKase in the ER around 11:45 am. Nicardipine drip started in the ER. Patient still with left sided weakness, left facial droop, difficulty with speech upon hospitalist evaluation around 1430. Denied N/V/D, abdominal pain, fever/chills, CP, SOB. Further ROS difficult to obtain secondary to patient's current dysphasia status. Allergies Allergy/AdvReac Type Severity Reaction Status Date / Time No Known Allergies Allergy Mild Verified 01/23/24 13:51 Home Medications Medication Instructions Recorded Confirmed Type ascorbic acid (vitamin C) 500 mg 1,000 mg PO DAILY 01/23/24 01/23/24 History tablet (Vitamin C) multivitamin 1 tab PO DAILY 01/23/24 01/23/24 History Past Med/Surg History Medical History (Updated 01/23/24 @ 16:47 by Hanny Fong PA-C) Chronic anemia Hypertension Phantom limb syndrome with pain Lyme disease Surgical History Amputation of left arm Family History Father Myocardial infarction Coronary heart disease Brother Stroke Sister Cancer Social History (Updated 01/23/24 @ 16:33 by Hanny Fong PA-C) Smoking Status: Never smoker Tobacco Type: Smokeless Tobacco (Dip or Chew) Smoking End Date: Former chewing tobacco; Second Hand Exposure: No; Do You Dip or Chew Tobacco: No; Tobacco Cessation Education Requested by Patient: No Hx Alcohol Use: No Hx Substance Use: No Preferred Language: Cantonese Malaysian Communication Ability: Effective Hearing Ability: Normal Seating Captain Required: No Beliefs That Will Affect Care: None marital status: Current Living Situation: Spouse current occupational status: retired Other Information That Helps Us Care for You: No Feels Safe at Home: Yes Safety Concerns: Feels Safe At This Time Seatbelt Use: always Sunscreen Use: No Assistive Devices: Cane Assistive Devices Comment: doesnt use cane often Physical Exam Physical Exam: General: +appears tired, has eyes closed, WDWN elderly male Head: normocephalic, atraumatic Eyes: PERRL, EOM's intact, conjunctiva non-injected, anicteric ENT: normal inspection external ears, nose, mucous membranes moist Neck: supple, trachea midline Lungs: clear, no respiratory distress, no wheezing/rhonchi/rales CV: RRR, no murmur, no JVD, no pretibial edema Abd: normal BS, soft, non-tender Ext: no cyanosis, no calf tenderness; LUE: +amputation above elbow Neuro: Eyes closed but Alert. Reports feels difficult to keep eyes open. no nystagmus, decreased facial sensation left side, +left facial droop, hearing grossly intact, + dysarthria, +decreased sensation left arm stump and left lateral leg, Patient unable to actively lift leg or left arm stump Skin: warm, dry Results & Data Results & Data Vital Signs (Past 12 Hours) Vital Signs Pulse Pulse Resp BP BP Pulse Ox O2 Del Method 01/23/24 14:15 59 L 18 151/102 H 93 Nasal Cannula 01/23/24 13:45 63 22 168/97 H 93 Nasal Cannula 01/23/24 13:40 65 20 136/100 96 Nasal Cannula 01/23/24 13:40 65 20 136/100 95 Nasal Cannula 01/23/24 13:30 64 21 172/101 H 93 Nasal Cannula 01/23/24 13:20 63 21 168/85 H 97 Nasal Cannula 01/23/24 13:15 63 15 163/103 H 96 Nasal Cannula 01/23/24 13:10 68 17 164/95 H 94 Nasal Cannula 01/23/24 13:05 69 23 169/98 H 96 Nasal Cannula 01/23/24 13:00 65 22 173/102 H 95 Nasal Cannula 01/23/24 12:51 61 24 172/101 H 94 Nasal Cannula 01/23/24 12:45 61 24 181/106 H 96 Nasal Cannula 01/23/24 12:40 60 21 189/107 H 97 Nasal Cannula 01/23/24 12:30 60 17 165/94 H 94 Nasal Cannula 01/23/24 12:20 59 L 18 169/91 H 96 Nasal Cannula 01/23/24 12:15 59 L 17 181/100 H 95 Nasal Cannula 01/23/24 12:10 60 24 170/90 H 96 Nasal Cannula 01/23/24 12:00 63 22 166/97 H 96 01/23/24 12:00 62 15 166/97 H 94 Nasal Cannula 01/23/24 11:51 63 19 160/93 H 94 Nasal Cannula 01/23/24 11:45 65 19 172/93 H 90 01/23/24 11:45 65 23 172/93 H 93 Room Air 01/23/24 11:40 65 23 169/96 H 93 Room Air 01/23/24 11:35 65 18 177/92 H 93 Room Air 01/23/24 11:30 65 23 181/95 H 90 Room Air 01/23/24 11:20 68 16 172/100 H 95 01/23/24 11:20 65 22 172/100 H 94 Room Air 01/23/24 11:06 67 01/23/24 11:03 64 22 195/102 H 95 Room Air 01/23/24 11:00 68 15 182/105 H 99 O2 Flow Rate 01/23/24 14:15 2 01/23/24 13:45 2 01/23/24 13:40 2 01/23/24 13:40 2 01/23/24 13:30 2 01/23/24 13:20 2 01/23/24 13:15 2 01/23/24 13:10 2 01/23/24 13:05 2 01/23/24 13:00 2 01/23/24 12:51 2 01/23/24 12:45 2 01/23/24 12:40 2 01/23/24 12:30 2 01/23/24 12:20 2 01/23/24 12:15 2 01/23/24 12:10 2 01/23/24 12:00 01/23/24 12:00 2 01/23/24 11:51 2 01/23/24 11:45 01/23/24 11:45 01/23/24 11:40 01/23/24 11:35 01/23/24 11:30 01/23/24 11:20 01/23/24 11:20 01/23/24 11:06 01/23/24 11:03 01/23/24 11:00 Laboratory Results Short CBC 01/23/24 Range/Units 11:09 WBC 10.39 (4.8-10.8) K/ul Hgb 12.0 L (14.0-18.0) g/dl Hct 36.6 L (42.0-52.0) % Plt Count 162 (130-400) K/uL BMP 01/23/24 11:09 Sodium 135 L Potassium 3.8 Chloride 101 Carbon Dioxide 26 BUN 15 Creatinine 0.81 Glucose 158 H Calcium 8.8 Liver Function 01/23/24 Range/Units 11:09 Total Bilirubin 0.4 (0.2-1.0) mg/dl AST 35 (13-39) U/L ALT 33 (7-52) U/L Alkaline Phosphatase 75 (34-104) U/L Albumin 3.5 (3.4-5.0) gm/dl Urine 01/23/24 Range/Units 13:17 Urine Color Yellow Urine Appearance Clear (Clear) Urine pH 7.5 (4.5-7.5) Ur Specific Ernul 1.036 H (1.000-1.030) Urine Protein Negative (Negative) Urine Glucose (UA) Negative (Negative) Diagnostic Findings Head CT 01/23/24 10:[address] DOSE: 1253.6 mGy.cm HISTORY: Left-sided weakness for neuro deficit, acute stroke suspected TECHNIQUE: Multiaxial CT images of the head were performed without the use of intravenous contrast. Automated exposure control was utilized for this study. A dose lowering technique was utilized adhering to the principles of ALARA. Comparison: None. Findings: Near complete opacification of the left sphenoid sinus. The mastoid air cells are clear. The calvarium and skull base are intact. The ventricles and sulci are within normal limits. There is no mass, hematoma, midline shift, or acute infarct. Impression: No acute intracranial abnormality. ACT 112: Negative or not required by law. Electronically signed by: Jarad Ruby M.D. 01/23/2024 11:19 AM Head CTA 01/23/24 10:39 HEAD & NECK CTA HISTORY: neuro deficit, acute stroke suspected TECHNIQUE: Multiaxial CT images of the head were performed following the intravenous administration of contrast to evaluate the major cerebral vessels. Multiaxial CT images of the neck were also performed following the intravenous administration of contrast to evaluate the major cervical vessels. 3D/MIP images were also obtained. Sagittal and coronal reformats were reviewed. A dose lowering technique was utilized adhering to the principles of ALARA. COMPARISON: None. FINDINGS: There is no mass, hematoma, midline shift, or acute infarct. Visualized intracranial internal carotid arteries, distal vertebral arteries, and basilar artery are widely patent. There is no significant stenosis, occlusion, or aneurysm seen within the bilateral ACAs or MCAs. There is mild to moderate mult ifocal stenosis within the proximal to mid bilateral ladle handler. . The major dural venous sinuses are patent. The aortic arch and proximal great vessels are widely patent. There is 1.6 cm right thyroid nodule. Mild to moderate focal narrowing at the origins of the vertebral arteries due to the calcified plaque. Otherwise, the remaining bilateral vertebral arteries show no significant stenosis, occlusion, or dissection. Moderate calcified plaque within the bilateral carotid bifurcations. The bilateral common carotid arteries are widely patent. No significant stenosis or occlusion within the right internal carotid artery. There is severe focal stenosis within the takeoff of the left internal carotid artery demonstrating approximately 90% narrowing. The mid to distal left internal carotid artery is widely patent. IMPRESSION: 1. Mild to moderate multifocal stenosis within the proximal to mid bilateral ladle handler. 2. However, no evidence for arterial occlusion or aneurysm within the major cere bral arteries. 3. High-grade stenosis at the takeoff of the left internal carotid artery of approximately 90%. 4. Mild to moderate stenosis at the takeoff of the bilateral vertebral arteries due to the calcified plaque. 5. A 1.6 cm right thyroid nodule ACT 112: Negative or not required by law. Electronically signed by: Jarad Ruby M.D. 01/23/2024 11:25 AM Neck CTA 01/23/24 10:39 HEAD & NECK CTA HISTORY: neuro deficit, acute stroke suspected TECHNIQUE: Multiaxial CT images of the head were performed following the intravenous administration of contrast to evaluate the major cerebral vessels. Multiaxial CT images of the neck were also performed following the intravenous administration of contrast to evaluate the major cervical vessels. 3D/MIP images were also obtained. Sagittal and coronal reformats were reviewed. A dose lowering technique was utilized adhering to the principles of ALARA. COMPARISON: None. FINDINGS: There is no mass, hematoma, midline shift, or acute infarct. Visualized intracranial internal carotid arteries, distal vertebral arteries, and basilar artery are widely patent. There is no significant stenosis, occlusion, or aneurysm seen within the bilateral ACAs or MCAs. There is mild to moderate multifocal stenosis within the proximal to mid bilateral ladle handler. . The major dural venous sinuses are patent. The aortic arch and proximal great vessels are widely patent. There is 1.6 cm right thyroid nodule. Mild to moderate focal narrowing at the origins of the vertebral arteries due to the calcified plaque. Otherwise, the remaining bilateral vertebral arteries show no significant stenosis, occlusion, or dissection. Moderate calcified plaque within the bilateral carotid bifurcations. The bilateral common carotid arteries are widely patent. No significant stenosis or occlusion within the right internal carotid artery. There is severe focal stenosis within the takeoff of the left internal carotid artery demonstrating approximately 90% narrowing. The mid to distal left internal carotid artery is widely patent. IMPRESSION: 1. Mild to moderate multifocal stenosis within the proximal to mid bilateral ladle handler. 2. However, no evidence for arterial occlusion or aneurysm within the major cerebral arteries. 3. High-grade stenosis at the takeoff of the left internal carotid artery of approximately 90%. 4. Mild to moderate stenosis at the takeoff of the bilateral vertebral arteries due to the calcified plaque. 5. A 1.6 cm right thyroid nodule ACT 112: Negative or not required by law. Electronically signed by: Jarad Ruby M.D. 01/23/2024 11:25 AM Code Status & VTE Plan VTE Prophylaxis Plan VTE Prophylaxis will be ordered: Yes Supervising Physician Co-Signing Physician Notes I have seen and examined the patient and have discussed the case with the provider above. I have reviewed the advanced practitioner's documentation, and I agree with, and take responsibility for that plan of care. 78 yo M presents with acute stroke while attending adventist earlier today at bedside and assists with history She states there was a point yesterday around 4pm where he was trying to yell out for help but couldn't be heard He cannot give any further history of why he was feeling poorly yesterday. He ate dinner and was fine after that episode, then during adventist went to kneel down and couldn't get back up again. Also developed left sided facial droop with numbness and difficulty moving left leg with numbness on the left side of the body. Received TNKase in the ER around 11:45 am Evaluated around 3pm with symptoms ongoing. Nicardipine drip started in the ER On exam he is hypertensive, HR 58, AF 95% on 2LPM He is in NAD and is fatigued but answering questions appropriately Some memory impairment as he cannot fill in details of everything that happened. Head: NC/AT HEENT: pupils are PERRL with EOMI, normal conjunctivae and sclerae. OP clear, MMM, left facial droop, left face sensation deficit CV: S1/2 heard with reg rate and rhythm euvolemic, no murmurs Lungs: CTAB ABD: soft NTND EXT: residual upper left limb, cannot move left leg or toes, decreased sensation to left leg on the lateral side with limited feeling on the medial leg Right motor function UE/UE is normal and intact, sensation intact on the right, gait not assessed. Cannot sit up or roll independently in the bed. Skin, warm and dry Labs/Imaging/EKG/Meds reviewed. Mild anemia with Hb 12 that appears chronic per record review. Lactate of 2.1 on admission, improved to 1.4 after ER treatments. UA clear. EKG NSR 64, no evidence of acute ischemia. 1. Acute stroke with residual left hemiplegia. TNKase given in the ER along with Mg per neurology recs. Nicardipine started for BP control. Transfer to ICU for monitoring. Neurology consulted and will guide recs for DAPT therapy going home. Echo, PT/OT. NPO for now pending resolution of facial droop. 2. HTN: uncertain h/o HTN as he has not seen a doctor for much over the years. Will screen lipid panel and A1C in am. Allow permissive HTN up to 180 systolic after nicardipine to promote cerebral perfusion. Cont to monitor. 3. Anemia-mild, once able to have lab draws would investigate with an iron panel. It isn't clear if he has had a screening colonoscopy in the past. DO Pelon (1) Cerebrovascular accident CVA mechanism: embolism Precerebral and cerebral artery: unspecified cerebral artery Qualified Code(s): I63.40 - Cerebral infarction due to embolism of unspecified cerebral artery
--- NOTE | 2024-01-23 14:22 | Critical Care Consultation ---
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 He is status post TNKase administration at 11:45 AM Neurologic: NIH stroke scale improving status post TNKase. Hold any anticoagulation or antiplatelet therapy at this time. Maintain systolic blood pressures under 185 and diastolic pressures under 105. Permissive hypertension otherwise. Head of the bed elevated above 35 degrees. Aspiration precautions. Speech therapy, PT and OT consults. Neurology consult. Echo with bubble study. Brain. Check lipid and A1c. Cj CT head in 24 hours. Nicardipine to maintain systolics below threshold. Maintain euthymia and euglycemia. Will need vascular consultation given 90% stenosis noted at the takeoff of the left internal carotid artery. Pulmonary: Chest x-ray with mild pulmonary vascular congestion. Oxygen requirements minimal at this time. Will closely monitor. Patient may have had an aspiration event per nursing staff. Will monitor for signs of fever and start antibiotics if fever begins. Cardiovascular: Echo completed and pending to evaluate for embolic source of stroke. Monitoring continue telemetry. Maintain systolics below 185 and diastolic below 105. Continue nicardipine infusion. Will potentially start oral antihypertensives tomorrow if cleared by speech and he remains hypertensive. Gastrointestinal: N.p.o. until cleared by speech therapy. Renal: No significant issues. Monitor urine output. Infectious disease: Monitor for signs of fever. Hematologic: Status post TNKase administration. Monitor for signs of bleeding. Avoid unnecessary needlesticks. Endocrine: Maintain euglycemia. Check A1c. VTE prophylaxis: SCDs. Start chemoprophylaxis tomorrow as long as no hemorrhagic conversion noted on head. CODE STATUS: DNR/DNI Family at bedside: Not available Disposition: ICU I have personally spent 44 minutes of critical care time in the direct management of this patient. This is a life/limb threatening event. This includes time spent evaluating patient, direct bedside care, chart review, placing o rders, interpretation of diagnostic studies, discussion with consultants, patient, and family members, as well as other required patient management activities. This time is exclusive of all separately billable procedures, and teaching time and separate from and in addition to any other critical care service time. Thank you for allowing us to participate in the care of this patient. 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 Symptoms started at 930 at [facility]. He felt weak and sat down. Reportedly there may have been loss of consciousness. Bystander noticed slurred speech, weakness of his left upper extremity and inability to ambulate. Initial NIH stroke scale in the ER was 19. TNKase was administered shortly after with consultation via telestroke service. NIH stroke scale improved to 9 and is currently 12. Patient still with evidence of dysarthria and weakness. Denies any chest pain. Chest x-ray revealed mild cardiomegaly and low lung volumes. Neck CTA revealed mild to moderate multifocal stenosis within the proximal to mid bilateral electrical subcontractor. High-grade stenosis of the takeoff of the left internal carotid measuring 90%. Mild to moderate stenosis at the takeoff of the bilateral vertebral arteries due to calcified plaque. 1.6 cm thyroid nodule. Head CT with near complete opacification of the left sphenoid sinus. No acute intracranial abnormality was identified. Patient was hypertensive upon arrival to the ER and was ultimately started on a nicardipine infusion. Patient is not routinely on any antihypertensive regimen. Allergies Allergy/AdvReac Type Severity Reaction Status Date / Time No Known Allergies Allergy Mild Verified 01/23/24 13:51 Home Medications Medication Instructions Recorded Confirmed Type ascorbic acid (vitamin C) 500 mg 1,000 mg PO DAILY 01/23/24 01/23/24 History tablet (Vitamin C) multivitamin 1 tab PO DAILY 01/23/24 01/23/24 History Patient History Medical History (Updated 01/23/24 @ 16:30 by Eliu Llnaes MD) Hypertension Phantom limb syndrome with pain Lyme disease Surgical History Amputation of left arm Family History (Updated 01/23/24 @ 14:42 by Maura Bird DO) Father Myocardial infarction Coronary heart disease Brother Stroke Sister Cancer Social History (Updated 01/23/24 @ 14:43 by Maura Bird DO) Smoking Status: Never smoker Tobacco Type: Smokeless Tobacco (Dip or Chew) Second Hand Exposure: No; Do You Dip or Chew Tobacco: No; Hx Alcohol Use: No Hx Substance Use: No Preferred Language: Cantonese Welsh Communication Ability: Effective Hearing Ability: Normal [employer] 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 Patient is in no apparent distress. Patient is well-developed. Eyes: Pupils are equal round and reactive to light. Conjunctivae are normal. Anicteric sclera. Ears nose, mouth and throat: Mallampati class 2. Normal posterior oropharynx. Uvula is midline. Neck: Trachea is midline. Visual inspection is normal. Respiratory: Clear to auscultation bilaterally. No use of accessory muscles. No significant clubbing noted. Cardiovascular: Regular rate and rhythm. No murmurs. No edema. Gastrointestinal: Normal bowel sounds, soft, nontender and nondistended. No hepatosplenomegaly noted. Musculoskeletal: No cyanosis. Patient is able to move all extremities. Strength is 5 out of 5 in the upper and lower extremities. Skin: No rashes, warm dry and intact. Neurologic: Dysarthric. Facial droop noted. Weakness of the left upper extremity. Psychiatric: Alert and oriented x3 with a euthymic affect. Results & Data Results & Data Vital Signs (Past 12 Hours) Vital Signs Pulse Pulse Resp BP BP Pulse Ox O2 Del Method 01/23/24 14:15 59 L 18 151/102 H 93 Nasal Cannula 01/23/24 13:45 63 22 168/97 H 93 Nasal Cannula 01/23/24 13:40 65 20 136/100 96 Nasal Cannula 01/23/24 13:40 65 20 136/100 95 Nasal Cannula 01/23/24 13:30 64 21 172/101 H 93 Nasal Cannula 01/23/24 13:20 63 21 168/85 H 97 Nasal Cannula 01/23/24 13:15 63 15 163/103 H 96 Nasal Cannula 01/23/24 13:10 68 17 164/95 H 94 Nasal Cannula 01/23/24 13:05 69 23 169/98 H 96 Nasal Cannula 01/23/24 13:00 65 22 173/102 H 95 Nasal Cannula 01/23/24 12:51 61 24 172/101 H 94 Nasal Cannula 01/23/24 12:45 61 24 181/106 H 96 Nasal Cannula 01/23/24 12:40 60 21 189/107 H 97 Nasal Cannula 01/23/24 12:30 60 17 165/94 H 94 Nasal Cannula 01/23/24 12:20 59 L 18 169/91 H 96 Nasal Cannula 01/23/24 12:15 59 L 17 181/100 H 95 Nasal Cannula 01/23/24 12:10 60 24 170/90 H 96 Nasal Cannula 01/23/24 12:00 63 22 166/97 H 96 01/23/24 12:00 62 15 166/97 H 94 Nasal Cannula 01/23/24 11:51 63 19 160/93 H 94 Nasal Cannula 01/23/24 11:45 65 19 172/93 H 90 01/23/24 11:45 65 23 172/93 H 93 Room Air 01/23/24 11:40 65 23 169/96 H 93 Room Air 01/23/24 11:35 65 18 177/92 H 93 Room Air 01/23/24 11:30 65 23 181/95 H 90 Room Air 01/23/24 11:20 68 16 172/100 H 95 01/23/24 11:20 65 22 172/100 H 94 Room Air 01/23/24 11:06 67 01/23/24 11:03 64 22 195/102 H 95 Room Air 01/23/24 11:00 68 15 182/105 H 99 O2 Flow Rate 01/23/24 14:15 2 01/23/24 13:45 2 01/23/24 13:40 2 01/23/24 13:40 2 01/23/24 13:30 2 01/23/24 13:20 2 01/23/24 13:15 2 01/23/24 13:10 2 01/23/24 13:05 2 01/23/24 13:00 2 01/23/24 12:51 2 01/23/24 12:45 2 01/23/24 12:40 2 01/23/24 12:30 2 01/23/24 12:20 2 01/23/24 12:15 2 01/23/24 12:10 2 01/23/24 12:00 01/23/24 12:00 2 01/23/24 11:51 2 01/23/24 11:45 01/23/24 11:45 01/23/24 11:40 01/23/24 11:35 01/23/24 11:30 01/23/24 11:20 01/23/24 11:20 01/23/24 11:06 01/23/24 11:03 01/23/24 11:00 Coding Level of Care Code 48420 CRITICAL CARE 1ST 30-74M Diagnoses Cerebrovascular accident I63.40 CVA mechanism: embolism Precerebral and cerebral artery: unspecified cerebral artery Hypertension I10 Time Spent (min) 44 (1) Cerebrovascular accident CVA mechanism: embolism Precerebral and cerebral artery: unspecified cerebral artery Qualified Code(s): I63.40 - Cerebral infarction due to embolism of unspecified cerebral artery
[2024-01-23] MEDS ORDERED: PHARMACIST DISCHARGE MED REC CONSULT PRN (14:50)
[2024-01-23] MEDS: RAPID SEQUENCE INDUCTION BAG ONE (15:36)
--- NOTE | 2024-01-23 16:20 | XRay Report ---
XR chest 1V portable HISTORY: possible aspiration COMPARISON: None. FINDINGS: No pneumothorax. No pleural effusions. There are low lung volumes. No focal lung consolidat ions to suggest a pneumonia. The cardiac silhouette is mildly enlarged. No evidence for pulmonary arjun ma. No acute fractures. IMPRESSION: 1. Mild cardiomegaly. Otherwise, no acute process within the chest. 2. Low lung volumes. ACT 112: Negative or not required by law. Electronically signed by: Jarad Ruby M.D. 01/23/2024 4:19 PM
--- NOTE | 2024-01-23 17:17 | Magnetic Resonance Report ---
Brain MRI WITHOUT CONTRAST HISTORY: Left-sided facial droop. stroke symptoms TECHNIQUE: Multiplanar multisequence MRI of the brain was performed without the use of contrast. COMPARISON STUDY: Head CT 01/23/2024. FINDINGS: A 1.7 cm focus of restricted diffusion within the right hemipons consistent with an acute i nfarct. The remaining midline structures are intact. There is no mass, hematoma, midline shift. The v entricles and sulci demonstrate mild age-related involutional changes. Partial opacification of the l eft sphenoid sinus. The mastoid air cells are clear. The major vascular flow-voids at the skull base are well-maintained. Punctate foci of T2 hyperintensity seen within the white matter of the supratent orial brain are nonspecific but favor mild microvascular ischemic change. IMPRESSION: 1. Acute pontine infarct. 2. No intracranial hemorrhage. 3. Mild atrophy and microvascular ischemic changes. ACT 112: Negative or not required by law. Electronically signed by: Jarad Ruby M.D. 01/23/2024 5:15 PM
--- NOTE | 2024-01-23 17:42 | XCELERA ---
[id number]
[2024-01-23] MEDS ORDERED: Nursing to Pharmacy Communication SCH (17:45)
[2024-01-23] MEDS: ICU Protocol for HYPERglycemia SCH (18:14)
[2024-01-23] MEDS: PLASMA-LYTE A 1,000 ML IV SCH (22:17)
--- NOTE | 2024-01-23 23:11 | Electrocardiogram Report ---
Test Reason : Blood Pressure : / mmHG Vent. Rate : 064 BPM Atrial Rate : 064 BPM P-R Int : 176 ms QRS Dur : 106 ms QT Int : 442 ms P-R-T Axes : 030 -09 023 degrees QTc Int : 455 ms Normal sinus rhythm Minimal voltage criteria for LVH, may be normal variant ( R in aVL ) Borderline ECG No previous ECGs available Confirmed by Armand Kurtz ([id number]) on 01/23/2024 11:11:06 PM Referred By: REFERRED SELF Confirmed By:Armand Kurtz
[2024-01-24 04:57] LABS: Magnesium 2.3 mg/dl (1.7-2.4); Phosphorus 3.2 mg/dl (2.5-4.9)
[2024-01-24 05:12] LABS: Thyroid Stimulating Hormone 2.156 uIu/ml (0.300-4.500)
--- OUTSIDE RECORDS SUMMARY | 2024-01-24 06:13 | External Medical Summary | Summary of Care ---
Author Name Unknown Organization [facility] Address [address] [place] [address] Phone [phone] Care Team Providers Care Furniture Mover Driver Name Role Phone Ashleigh Jackson DO Primary Care Provider [phone] Reason for Visit * Reason Onset Date Comments Follow Up Ear Flush 10/29/2023 Encounter Details Date Type Department Care Team (Late st Contact Info) Description 10/29/2023 10:00 AM EST Office Visit Family Practice [address], [place] [address] [place] [phone] Ashleigh Jackson DO [address] [place] [address] Impacted cerumen of right ear*; Phantom limb syndrome with pain (HCC); Vaccine refused by parent; Chronic pain of left knee Allergies No known active allergiesdocumented as of this encounter (statuses as of 10/29/2023) Medications No known medicationsdocumented as of this encounter (statuses as of 10/29/2023) Active Problems Problem Noted Date Diagnosed Date Phantom limb syndrome with pain 06/18/2022 documented as of this encounter (statuses as of 10/29/2023) Immunizations No known immunizationsdocumented as of this encounter Social History Tobacco Use Types Packs/Day Years Used Date Smoking Tobacco: Former Passive Smoke Exposure: Past Smokeless Tobacco: Former Snuff Tobacco Cessation:Counseling Given: Yes Comments:Smoked corn cobbed pipe as a teen Alcohol Use Standard Drinks/Week Comments No 0 (1 standard drink = 0.6 oz pur e alcohol) used to drink on occasion PHQ-2 Answer Date Recorded PHQ Adult Total Score 0 06/25/2023 Hunger Vital Sign Answer Date Recorded Within the past 12 months, y ou worried that your food would run out before you got the money to buy more. Never true 06/25/20 23 Within the past 12 months, t he food you bought just didn't last and you didn't have money to get more. Never true 06/25/2023 Sex and Gender Information Value Date Recorded Sex Assigned at Male 02/25/2023 8:34 AM EDT Gender Identity Male 02/25/2023 8:34 AM EDT Sexual Orientation Straight 02/25/2023 8: 34 AM EDT Job Start Date Occupation Industry Not on file Not on file Not on file documented as of this encounter Last Filed Vital Signs Vital Sign Reading Time Taken Comments Blood Pressure 126/76 10/29/2023 9:57 AM EST Pulse 80 10/29/2023 9:57 AM EST Temperature 36.3 C (97.4 F) 10/29/2023 9:57 AM ES T Respiratory Rate 14 10/29/2023 9:57 AM EST Oxygen Saturation 96% 10/29/2023 9:57 AM EST Inhaled Oxygen Concentration - - Weight 80.3 kg (177 lb 1.6 oz) 10/29/2023 9:57 A M EST Height 176.5 cm (5' 9.5") 10/29/2023 9:57 AM EST Body Mass Index 25.78 10/29/2023 9:57 AM EST documented in this encounter Progress Notes * Beatrice Patterson LPN - 10/29/2023 10:26 AM EST Ear Irrigation Procedure: Irrigation Solution: Up to 200 ml of solution may be instilled with one Procedure Solution Used: Water 180 ml/ Hydrogen Peroxide 20 ml (Mixed) Ear(s) Irrigated: Right Response: Particulate Returned - large amount. Patient tolerated well. Beatrice Patterson LPN * Ashleigh Jackson DO - 10/29/2023 9:55 AM EST SUBJECTIVE: Chief Complaint Patient presents with Follow Up HPI: Armand Fermin Sr. is a 78 year old male who presents today for regular return. Pt notes some left knee pain. He recalls no injury. He notes that he thinks that it is arthritis. It bothers him fairly constantly. It is worse if he walks too much. He thinks that it swells some. It has bothered him for months. Pt continues to complain of balance issues. CT was negative. He declines balance classes. He does not use his cane. notes that his ears are often plugged. He has issues with using his hearing aids as they plug with wax. Pt declines all preventive care and vaccines. Refuses blood work. PHM: Patient Active Problem List Diagnosis Code Phantom limb syndrome with pain (HCC) G54.6 No current outpatient medications on file. No current facility-administered medications for this visit. Past Medical History: Diagnosis Date No known problems No past surgical history on file. Review of patient's allergies indicates: No Known Allergies Family History Problem Relation Age of Onset Cancer Father leukemia Heart Disorder Father Heart Disorder Sister Heart Disorder Brother Family Status Relation Status Fa (Not Specified) Sis (Not Specified) Sis (Not Specified) Bro (Not Specified) Social History Tobacco Use Smoking status: Former Passive exposure: Past Smokeless tobacco: Former Types: Snuff Tobacco comments: Smoked corn cobbed pipe as a teen Substance Use Topics Alcohol use: No Comment: used to drink on occasion Vaping/E-Cigarette Use Vaping/E-Cigarette Substances Vaping/E-Cigarette Devices REVIEW OF SYSTEMS: Review of Systems Constitutional: Negative for chills, fatigue, fever and unexpected weight change. HENT: As per HPI Respiratory: Negative for cough, chest tightness, shortness of breath and wheezing. Cardiovascular: Negative for chest pain, palpitations and leg swelling. Gastrointestinal: Negative for abdominal pain, constipation, diarrhea, nausea and vomiting. Musculoskeletal: Positive for arthralgias. Negative for gait problem and joint swelling. Skin: Negative for color change, pallor and rash. OBJECTIVE: BP 126/76 | Pulse 80 | Temp 36.3 C (97.4 F) | Resp 14 | Ht 1.765 m (5' 9.5") | Wt 80.3 kg (177 lb 1.6 oz) | SpO2 96% | BMI 25.78 kg/m | BSA 1.98 m PHYSICAL EXAM: Physical Exam Constitutional: General: He is not in acute distress. Appearance: He is well-developed. Cardiovascular: Rate and Rhythm: Normal rate and regular rhythm. Heart sounds: Normal heart sounds. No murmur heard. No friction rub. No gallop. Pulmonary: Effort: Pulmonary effort is normal. No respiratory distress. Breath sounds: Normal breath sounds. No wheezing or rales. Abdominal: General: Bowel sounds are normal. There is no distension. Palpations: Abdomen is soft. Tenderness: There is no abdominal tenderness. There is no guarding. Musculoskeletal: General: No tenderness. Comments: Left arm amputation above the elbow Skin: General: Skin is warm and dry. Coloration: Skin is not pale. Findings: No erythema or rash. Neurological: Mental Status: He is alert and oriented to person, place, and time. ASSESSMENT/PLAN: (H61.21) Impacted cerumen of right ear (primary encounter diagnosis) Plan: REMOVAL IMPACTED CERUMEN IRRIGATION/LAVAGE, UNILAT Ear flushed per nursing today. To use Debrox regularly. (G54.6) Phantom limb syndrome with pain (HCC) Plan: pt feels that things are controllable. Does not feel that he needs medication. He will monitor. (Z28.82) Vaccine refused by parent Plan: Pt declines all vaccines and preventive care. M25.562 Chronic left knee pain Plan: likely arthritis. Pt declines x-ray or injection. He can use tylenol if needed. He is advisedto call if there is worsening. Follow-up: 4 months Total time today including reviewing chart before the visit, pertinent labs, imaging reports, face to face time, and documentation time was 35 minutes. Ashleigh Jackson DO documented in this encounter Nursing Notes * Ольга Hummel LPN - 10/29/2023 9:56 AM EST Here for follow up, left knee continue to have pain. documented in this encounter Plan of Treatment Upcoming Encounters Date Type Department Care Team (Late st Contact Info) Description 07/20/2024 10:40 AM EDT Office Visit [facility] [address], [address] [place] [phone] Ashleigh Jackson DO [address] [place] [address] Scheduled Orders Name Type Priority Associated Diagnoses Orde r Schedule REMOVAL IMPACTED CERUMEN IRRIGATION/LAVAGE, UNILAT Procedures Routine Impacted cerumen of right ear Ordered: 10/29/2023 Health Maintenance Due Date Last Done Comments COVID-19 Vaccine (#1) 1945 Hepatitis C Screening 1963 DTaP,Tdap,and Td Vaccines (1 - Tdap) 09/21/1992 09/20/1992 Zoster Vaccines (1 of 2) 1994 Pneumococcal Vaccine: 65+ Ye ars (1 - PCV) 2009 Influenza Vaccine (FLU shot) (#1) 2023 Depression Screening 06/25/2024 06/25/2023 GARDASIL-HPV IMMUNIZATION SERIES Aged Out No longer eligible based on patient's age to complete this topic Hepatitis B Aged Out No longer eligi ble based on patient's age to complete this topic MENINGOCOCCAL (MENACTRA/MENVEO) Aged Out No longer eligible based on patient's age to complete this topic documented as of this encounter Medical Devices Not on filedocumented as of this encounter Visit Diagnoses Diagnosis Impacted cerumen of right ear- Primary Impacted cerumen Phantom limb syndrome with pain (HCC) Phantom limb (syndrome) Vaccine refused by parent Vaccination not carried out because of caregiver refusal Chronic pain of left knee Pain in joint, lower leg documented in this encounter Care Teams Furniture Mover Driver Relationship Specialty Start Date End Date Ashleigh Jackson DO [address] [place] [address] PCP - General Family Medicine 06/18/22 documented as of this encounter
[2024-01-24 07:21] LABS: BUN Creatinine Ratio 20.8 (10-20); Calcium 8.6 mg/dl (8.6-10.3); Creatinine Clr Calc Pharmacy 83.2 ml/min; Est GFR (African American) 102.8 ml/min; Est GFR (Non-African American) 88.7 ml/min; Potassium 3.8 mmol/L (3.5-5.1)
[2024-01-24 07:25] LABS: Basophils # (auto) 0.02 K/uL (0.00-0.20); Basophils % (auto) 0.2 %; Eosinophils # (auto) 0.02 K/uL (0.00-0.50); Eosinophils % (auto) 0.2 %; Hematocrit (blood only) 39.5 % (42.0-52.0); Hemoglobin 12.8 g/dl (14.0-18.0); Immature Granulocytes # (auto) 0.07 K/uL (0.01-0.20); Immature Granulocytes % (auto) 0.6 %; Lymphocytes # (auto) 2.92 K/uL (1.20-3.40); Lymphocytes % (auto) 23.7 %; Mean Corpuscular Hemoglobin 29.5 pg (25.0-34.0); Mean Corpuscular Hgb Conc 32.4 g/dL (32.0-36.0); Mean Platelet Volume 10.9 fL (9.4-12.4); Monocytes # (auto) 0.93 K/uL (0.11-0.59); Monocytes % (auto) 7.5 %; Neutrophils # (auto) 8.38 K/uL (1.40-6.50); Neutrophils % (auto) 67.8 %; Platelet Count 160 K/uL (130-400); RDW Coefficient of Variation 12.8 % (11.5-14.5); RDW Standard Deviation 42.7 fL (36.4-46.3); Red Blood Count 4.34 M/uL (4.70-6.10); White Blood Count 12.34 K/ul (4.8-10.8)
--- NOTE | 2024-01-24 08:03 | Hospitalist Progress Note ---
Date of Service January 24, 2024 Assessment & Plan (1) Cerebrovascular accident: (2) Hypertension: (3) Chronic anemia: Plan Patient is 78 year old male with PMHx significant for chronic anemia, history traumatic LUE injury and amputation, phantom limb pain who presented to the ER w ith concern for left sided weakness, left facial droop, dysphasia that started about 09:30AM on the day of arrival. MRI showed an acute pontine stroke. Acute CVA s/p TNK administration CT head: No acute intracranial abnormality. CTA head and neck noted mild to moderate multifocal stenosis within the proximal to mid bilateral children's program coordinator, high-grade stenosis at the takeoff of the left internal carotid artery of approximately 90%, mild to moderate stenosis at the takeoff of the bilateral vertebral arteries due to the calcified plaque, a 1.6 cm right thyroid nodule. MRI brain noted acute pontine infarct Echo noted only trace aortic regurgitation Pt was evaluated by telestroke, received TNKase in the ER around 11:45 am Nicardipine drip was started in the ER for BP: 189/107 Patient still with left sided weakness, left facial droop, difficulty with speech upon evaluation around 1430 Was transferred to the ICU for further monitoring- repeat head CT in 24 hours stable Aspiration precautions PT/OT consult Neurology consulted, appreciate recs. Noted the following: -"Right pontine acute ischemic stroke s/p IV thrombolytic administration=Dysarthria, dysphagia, left hemiplegia, left CN VII LMN Palsy" -L eye patch qhs, eye lubrication -Recommend ZioPatch at DC if no evidence of arrhythmia during inpatient monitoring -Metabolic workup should include hgbA1c, fasting lipids, homocysteine, TSH, D Dimer -Recommend DAPT for at least 3 weeks -Recommend high dose statin therapy indefinitely if tolerated -Ok from neurology perspective for VTE prophylaxis -PT/OT/SLT to eval and treat -Recommend outpatient polysomnography Continue to monitor L ICA stenosis Vertebral Artery stenosis Head and neck imaging notes high grade stenosis of about 90% of L internal carotid artery Vascular Surgery consulted, appreciate recs Thyroid nodule A 1.6 cm right thyroid nodule noted on CTA neck TSH wnl PCP followup 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 Appears baseline of 12's in 2019. Patient has refused labs past several years Consider anemia workup Hyperglycemia No formal DM diagnosis Hgba1c pending Sinusitis Likely chronic Noted on head CT, near complete opacification of L sphenoid sinus consider followup Cardiomegaly Mild, noted on chest xray Echo as above Diet: heart healthy, nectar, pureed DVT Prophylaxis: SCDs as received TNK Dispo: awaiting PT/OT recs Admission and Anticipated Discharge Date Admission Date: January 23, 2024 Subjective pt was seen while down in the ICU. neighbor at bedside. Still with noted difficulty in speech, unable to move left leg. Review of Systems Review of Systems: All systems reviewed & are unremarkable except as noted in Subjective Physical Exam Physical Exam: General: Alert No acute distress Neuro: dysarthria noted, unable to move left lower extremitiy HEENT: NC/AT CV: RRR Resp: Breath sounds clear bilaterally, no increased effort of breathing. Abdomen:Soft, nontender, nondistended. Extremities: noted amputation of left upper extremity Results & Data Results & Data Vital Signs (Past 12 Hours) Vital Signs Temp Pulse Pulse Resp BP Pulse Ox O2 Del Method 01/24/24 06:47 36.6 C 57 L 20 156/93 H 98 Nasal Cannula 01/24/24 05:47 36.7 C 62 16 180/103 H 98 Nasal Cannula 01/24/24 04:47 36.6 C 59 L 16 180/89 H 98 Nasal Cannula 01/24/24 03:47 36.8 C 57 L 16 179/99 H 98 Nasal Cannula 01/24/24 02:47 37 C 57 L 18 168/94 H 96 Nasal Cannula 01/24/24 01:47 36.9 C 60 16 182/95 H 97 Nasal Cannula 01/24/24 00:47 36.9 C 58 L 18 163/91 H 96 Nasal Cannula 01/24/24 00:00 57 L 01/23/24 23:47 36.9 C 56 L 22 165/86 H 96 Nasal Cannula 01/23/24 22:47 36.8 C 58 L 20 155/81 H 97 Nasal Cannula 01/23/24 21:47 36.7 C 65 20 151/83 H 98 Nasal Cannula 01/23/24 20:47 36.5 C 61 20 137/92 97 Nasal Cannula 01/23/24 19:47 36.7 C 60 18 148/89 H 95 Nasal Cannula O2 Flow Rate 01/24/24 06:47 2 01/24/24 05:47 2 01/24/24 04:47 2 01/24/24 03:47 2 01/24/24 02:47 2 01/24/24 01:47 2 01/24/24 00:47 2 01/24/24 00:00 01/23/24 23:47 2 01/23/24 22:47 2 01/23/24 21:47 2 01/23/24 20:47 2 01/23/24 19:47 [address] 01/23/24 10:[address] DOSE: 1253.6 mGy.cm HISTORY: Left-sided weakness for neuro deficit, acute stroke suspected TECHNIQUE: Multiaxial CT images of the head were performed without the use of intravenous contrast. Automated exposure control was utilized for this study. A dose lowering technique was utilized adhering to the principles of ALARA. Comparison: None. Findings: Near complete opacification of the left sphenoid sinus. The mastoid air cells are clear. The calvarium and skull base are intact. The ventricles and sulci are within normal limits. There is no mass, hematoma, midline shift, or acute infarct. Impression: No acute intracranial abnormality. ACT 112: Negative or not required by law. Electronically signed by: Jarad Ruby M.D. 01/23/2024 11:19 AM Head CTA 01/23/24 10:39 HEAD & NECK CTA HISTORY: neuro deficit, acute stroke suspected TECHNIQUE: Multiaxial CT images of the head were performed following the intravenous administration of contrast to evaluate the major cerebral vessels. Multiaxial CT images of the neck were also performed following the intravenous administration of contrast to evaluate the major cervical vessels. 3D/MIP images were also obtained. Sagittal and coronal reformats were reviewed. A dose lowering technique was utilized adhering to the principles of ALARA. COMPARISON: None. FINDINGS: There is no mass, hematoma, midline shift, or acute infarct. Visualized intracranial internal carotid arteries, distal vertebral arteries, and basilar a rtery are widely patent. There is no significant stenosis, occlusion, or aneurysm seen within the bilateral ACAs or MCAs. There is mild to moderate multifocal stenosis within the proximal to mid bilateral children's program coordinator. . The major dural venous sinuses are patent. The aortic arch and proximal great vessels are widely patent. There is 1.6 cm right thyroid nodule. Mild to moderate focal narrowing at the origins of the vertebral arteries due to the calcified plaque. Otherwise, the remaining bilateral vertebral arteries show no significant stenosis, occlusion, or dissection. Moderate calcified plaque within the bilateral carotid bifurcations. The bilateral common carotid arteries are widely patent. No significant stenosis or occlusion within the right internal carotid artery. There is severe focal stenosis within the takeoff of the left internal carotid artery demonstrating approximately 90% narrowing. The mid to distal left internal carotid artery is widely patent. IMPRESSION: 1. Mild to moderate multifocal stenosis within the proximal to mid bilateral children's program coordinator. 2. However, no evidence for arterial occlusion or aneurysm within the major cerebral arteries. 3. High-grade stenosis at the takeoff of the left internal carotid artery of approximately 90%. 4. Mild to moderate stenosis at the takeoff of the bilateral vertebral arteries due to the calcified plaque. 5. A 1.6 cm right thyroid nodule ACT 112: Negative or not required by law. Electronically signed by: Jarad Ruby M.D. 01/23/2024 11:25 AM Neck CTA 01/23/24 10:39 HEAD & NECK CTA HISTORY: neuro deficit, acute stroke suspected TECHNIQUE: Multiaxial CT images of the head were performed following the intravenous administration of contrast to evaluate the major cerebral vessels. M ultiaxial CT images of the neck were also performed following the intravenous administration of contrast to evaluate the major cervical vessels. 3D/MIP images were also obtained. Sagittal and coronal reformats were reviewed. A dose lowering technique was utilized adhering to the principles of ALARA. COMPARISON: None. FINDINGS: There is no mass, hematoma, midline shift, or acute infarct. Visualized intracranial internal carotid arteries, distal vertebral arteries, and basilar artery are widely patent. There is no significant stenosis, occlusion, or aneurysm seen within the bilateral ACAs or MCAs. There is mild to moderate multifocal stenosis within the proximal to mid bilateral children's program coordinator. . The major dural venous sinuses are patent. The aortic arch and proximal great vessels are widely patent. There is 1.6 cm right thyroid nodule. Mild to moderate focal narrowing at the origins of the vertebral arteries due to the calcified plaque. Otherwise, the remaining bilateral vertebral arteries show no significant stenosis, occlusion, or dissection. Moderate calcified plaque within the bilateral carotid bifurcations. The bilateral common carotid arteries are widely patent. No significant stenosis or occlusion within the right internal carotid artery. There is severe focal stenosis within the takeoff of the left internal carotid artery demonstrating approximately 90% narrowing. The mid to distal left internal carotid artery is widely patent. IMPRESSION: 1. Mild to moderate multifocal stenosis within the proximal to mid bilateral children's program coordinator. 2. However, no evidence for arterial occlusion or aneurysm within the major cerebral arteries. 3. High-grade stenosis at the takeoff of the left internal carotid artery of approximately 90%. 4. Mild to moderate stenosis at the takeoff of the bilateral vertebral arteries due to the calcified plaque. 5. A 1.6 cm right thyroid nodule ACT 112: Negative or not required by law. Electronically signed by: Jarad Ruby M.D. 01/23/2024 11:25 AM Brain MRI 01/23/24 14:50 Brain MRI WITHOUT CONTRAST HISTORY: Left-sided facial droop. stroke symptoms TECHNIQUE: Multiplanar multisequence MRI of the brain was performed without the use of contrast. COMPARISON STUDY: Head CT 01/23/2024. FINDINGS: A 1.7 cm focus of restricted diffusion within the right hemipons consistent with an acute infarct. The remaining midline structures are intact. There is no mass, hematoma, midline shift. The ventricles and sulci demonstrate mild age-related involutional changes. Partial opacification of the left sp henoid sinus. The mastoid air cells are clear. The major vascular flow-voids at the skull base are well-maintained. Punctate foci of T2 hyperintensity seen within the white matter of the supratentorial brain are nonspecific but favor mild microvascular ischemic change. IMPRESSION: 1. Acute pontine infarct. 2. No intracranial hemorrhage. 3. Mild atrophy and microvascular ischemic changes. ACT 112: Negative or not required by law. Electronically signed by: Jarad Ruby M.D. 01/23/2024 5:15 PM Chest X-Ray 01/23/24 15:19 XR chest 1V portable HISTORY: possible aspiration COMPARISON: None. FINDINGS: No pneumothorax. No pleural effusions. There are low lung volumes. No focal lung consolidations to suggest a pneumonia. The cardiac silhouette is mildly enlarged. No evidence for pulmonary edema. No acute fractures. IMPRESSION: 1. Mild cardiomegaly. Otherwise, no acute process within the chest. 2. Low lung volumes. ACT 112: Negative or not required by law. Electronically signed by: Jarad Ruby M.D. 01/23/2024 4:19 PM (1) Cerebrovascular accident CVA mechanism: embolism Precerebral and cerebral artery: unspecified cerebral artery Qualified Code(s): I63.40 - Cerebral infarction due to embolism of unspecified cerebral artery
--- NOTE | 2024-01-24 08:38 | Critical Care Progress Note ---
Date of Service January 24, 2024 Assessment & Plan (1) Cerebrovascular accident: (2) Hypertension: Plan Reason Critically Ill: 78-year-old male with no significant past medical history who presents in the setting of altered mental status and associated LEFT-sided facial droop and flaccid paralysis of the LEFT lower extremity. Workup consistent with acute ischemic pontine stroke status post TNKase administration. Mild improvement in the patient's NIH scale. NEURO - * CAM ICU: NEGATIVE * CVA: * Acute pontine infarct noted on MRI. * Patient with persistent LEFT-sided facial droop, dysarthria, LEFT lower extremity weakness, and sensation discrepancies on the LEFT side. * Awaiting neurology evaluation recommendation. * Echocardiogram reviewed without acute findings. * Follow-up 24-hour CT pending. * PT/OT ordered * ENVIRONMENTAL TEST TECHNICIAN evaluation pending. N.p.o. until seen and cleared by speech. CARDIAC/VASCULAR - * Hypertension: * Initially required nicardipine which has since been discontinued. * Permissive hypertension currently. * Will likely require stricter BP control moving forward. * Monitor on telemetry. RESPIRATORY - * Initially requiring supplemental oxygen with concerns for possible aspiration: * Chest x-ray reviewed without any infiltrative finding. * Supplemental oxygen titrated off. * Physical exam unremarkable at this point. GI/NUTRITION - * N.p.o. pending ENVIRONMENTAL TEST TECHNICIAN evaluation. RENAL/LYTES - * No significant electrolyte derangements. - * No concerns at this time. ENDO - * No h/o DM or Thyroid Dz * BSGs per unit protocol. ISS --> gtt per unit policy. HEME - * Stable H&H ID - * No concerns for infection at this time. LINES/IV ACCESS - * PIVs x2 DVT PROPHYLAXIS - * Hold for now. * SCDs Thank you for allowing us to participate in the care of this patient. Please refer to my attending physician's documentation for any further recommendations. Admission and Anticipated Discharge Date Admission Date: January 23, 2024 Supervising Physician Co-Signing Physician Notes Patient seen and examined. EMR reviewed. Discussed on multidisciplinary rounds and with off going pet care associate as well as with critical care J LUIS. Agree with assessment plan as noted. Patient with left pontine stroke. Likely embolic from the patient's significant stenosis. Will obtain vascular surgery consultation as he may need endarterecto my/TCAR at some point. PT and OT evaluations in progress. Speech therapy evaluation. Will also pursue continued blood pressure control. Follow-up CT scan around 2:00 today and if no evidence of hemorrhagic transformation or other hemorrhage, the patient can likely be transferred to the floor and critical care services will sign off. Feel free to contact us with questions or concerns Subjective Patient seen and evaluated at bedside. He is still with difficulty with speech and weakness to the LEFT lower extremity. He also has persistent facial droop. No complaints of pain, chest pain, shortness of breath. Review of Systems Review of Systems: Reviewed as noted in HPI Physical Exam Physical Exam: VITAL SIGNS - Vital signs and nursing notes were reviewed. GENERAL - 78-year-old male appearing his stated age who is in no acute distress. Dysarthria and LEFT-sided facial droop. HEAD - Normocephalic, Atraumatic. EYES - PERRL with EOMI bilaterally. Sclera anicteric. EARS - No deformities of external structures noted on gross examination bilaterally. NOSE - Midline and without cyanosis. MOUTH/OROPHARYNX - Without perioral cyanosis. NECK - Neck with FROM. LUNGS - Chest wall symmetric without accessory muscle use, intercostals retractions, or central cyanosis. Normal vesicular breath sounds CTA B/L. No wheezes, rales, or rhonchi appreciated. CARDIAC - RRR with S1/S2. No murmur, rubs, or gallops appreciated. ABDOMEN - Abdominal contour flat without pulsations or visible masses. BS normoactive all four quadrants. No tenderness, palpable masses, hepatosplenomegaly, or ascites noted. EXTREMITIES - No pretibial edema present. +3/5 radial and dorsalis pedis pulses palpated throughout. LUE amputation. Full strength of the RIGHT upper extremity. Decree strength and range of motion of the LEFT lower extremity compared to the right. NEUROLOGIC -LEFT-sided facial droop noted. Dysarthria present. Decreased sensation to the LEFT-sided face versus right. Weakness to the LEFT lower extremity compared to right. Sensation deficit to LEFT lower extremity. PSYCH - A&Ox3 and cooperates fully with examiner. Pt is very pleasant and in teracts well with examiner. Results & Data Results & Data Vital Signs (Past 12 Hours) Vital Signs Temp Pulse Pulse Resp BP Pulse Ox O2 Del Method 01/24/24 08:00 55 L 01/24/24 07:45 36.6 C 51 L 16 170/85 H 99 Nasal Cannula 01/24/24 06:47 36.6 C 57 L 20 156/93 H 98 Nasal Cannula 01/24/24 05:47 36.7 C 62 16 180/103 H 98 Nasal Cannula 01/24/24 04:47 36.6 C 59 L 16 180/89 H 98 Nasal Cannula 01/24/24 03:47 36.8 C 57 L 16 179/99 H 98 Nasal Cannula 01/24/24 02:47 37 C 57 L 18 168/94 H 96 Nasal Cannula 01/24/24 01:47 36.9 C 60 16 182/95 H 97 Nasal Cannula 01/24/24 00:47 36.9 C 58 L 18 163/91 H 96 Nasal Cannula 01/24/24 00:00 57 L 01/23/24 23:47 36.9 C 56 L 22 165/86 H 96 Nasal Cannula 01/23/24 22:47 36.8 C 58 L 20 155/81 H 97 Nasal Cannula 01/23/24 21:47 36.7 C 65 20 151/83 H 98 Nasal Cannula 01/23/24 20:47 36.5 C 61 20 137/92 97 Nasal Cannula O2 Flow Rate 01/24/24 08:00 01/24/24 07:45 2 01/24/24 06:47 2 01/24/24 05:47 2 01/24/24 04:47 2 01/24/24 03:47 2 01/24/24 02:47 2 01/24/24 01:47 2 01/24/24 00:47 2 01/24/24 00:00 01/23/24 23:47 2 01/23/24 22:47 2 01/23/24 21:47 2 01/23/24 20:47 2 Coding Level of Care Code 42429 SUB INP/OBS CARE 3/50MIN Diagnoses Cerebrovascular accident I63.40 CVA mechanism: embolism Precerebral and cerebral artery: unspecified cerebral artery Hypertension I10 (1) Cerebrovascular accident CVA mechanism: embolism Precerebral and cerebral artery: unspecified cerebral artery Qualified Code(s): I63.40 - Cerebral infarction due to embolism of unspecified cerebral artery
--- NOTE | 2024-01-24 11:53 | Neurology Consultation ---
Date of Consultation January 24, 2024 Assessment & Plan (1) Acute ischemic stroke: Right pontine acute ischemic stroke s/p IV thrombolytic administration =Dysarthria, dysphagia, left hemiplegia, left CN VII LMN Palsy Recommend continued stroke work up to include the following: Follow up CT brain at/near 24 hours post IV TNK administration Echocardiogram as part of complete stroke workup Continue frequent neurological assessments Obtain stat CT brain without contrast for any acute neurological decline Continue to monitor/control blood pressure & blood glucose Continue to monitor telemetry closely Recommend ZioPatch at DC if no evidence of arrhythmia during inpatient monitoring Metabolic workup should include hgbA1c, fasting lipids, homocysteine, TSH, D Dimer Recommend DAPT for at least 3 weeks Recommend high dose statin therapy indefinitely if tolerated Ok from neurology perspective for VTE prophylaxis PT/OT/SLT to eval and treat Recommend outpatient polysomnography (2) Left carotid artery stenosis: Severe left ICA stenosis Recommend vascular surgery consultation this admission Will benefit from intervention to preserve dominant hemisphere Recommend continue DAPT and high dose stating therapy Telehealth Consultation Telehealth Information Telehealth Information: I performed this visit using a real-time telehealth connection between my location and the patients location ([facility]). After connecting through interactive tele-video, patient was identified by name and date of and/or wristband check.Patient (or authorized healthcare sales utility representative) was informed that this was a telemedicine visit and it was being conducted confidentially over secure lines. My office door was closed and no one else was present in the room with me.Patient (or authorized healthcare sales utility representative) provided consent to proceed with the visit, expressed an understanding of privacy and security of the telemedicine visit, and gave permission to have a hospital sales utility representative in the room in order to assist with the visit and to conduct portions of the visit, as needed. I informed the patient (or authorized healthcare sales utility representative) that I reviewed their record and presented the opportunity for them to ask any questions regarding the visit today. The patient agreed to participate. History of Present Illness Reason for Consultation: Stroke Requesting Physician: Dr. Cui Attending Physician: Ashley Cui MD History of Present Illness 78yo right handed male with hx of LUE above elbow amputation following accident presented to ER with reported new onset left hemiparesis, left hemiparesthesia, left facial asymmetry, aphasia underwent emergent stroke imaging and ultimately received IV thrombolytic. MRI brain confirms right pontine infarct. CTA head and neck reveal sever left ICA stenosis. He reports being right handed- suspect left hemisphere dominant. I have performed televideo consultation. He alert & oriented. Able to follow commands to the best of his physical ability. He denies pain at this time. There is severe dysarthria. Reportedly tolerating modified diet. Significant left facial asymmetry consistent with Left CN VII LMN palsy. Family at bedside- all questions answered. Allergies Allergy/AdvReac Type Severity Reaction Status Date / Time No Known Allergies Allergy Mild Verified 01/23/24 13:51 Home Medications Medication Instructions Recorded Confirmed Type ascorbic acid (vitamin C) 500 mg 1,000 mg PO DAILY 01/23/24 01/23/24 History tablet (Vitamin C) multivitamin 1 tab PO DAILY 01/23/24 01/23/24 History Patient History Medical History (Updated 01/24/24 @ 12:54 by Michele Lua DO) Chronic anemia Hypertension Phantom limb syndrome with pain Lyme disease Surgical History Amputation of left arm Family History Father Myocardial infarction Coronary heart disease Brother Stroke Sister Cancer Social History (Updated 01/23/24 @ 16:33 by Hanny Fong PA-C) Smoking Status: Never smoker Tobacco Type: Smokeless Tobacco (Dip or Chew) Second Hand Exposure: No; Do You Dip or Chew Tobacco: No; Hx Alcohol Use: No Hx Substance Use: No Preferred Language: Cantonese Wolof Communication Ability: Effective Hearing Ability: Normal Tax Assessor Required: No Beliefs That Will Affect Care: None marital status: Current Living Situation: Spouse current occupational status: retired Feels Safe at Home: Yes Seatbelt Use: always Sunscreen Use: No Assistive Devices: None Physical Exam Neurological Examination: Mental Status: Awake and alert and oriented Overt dysarthria but able to name objects repeat phrases and follow commands Affect remains appropriate. CN testing: I: Denies changes in ability to smell II:Reports no changes in vision III/IV/: No evidence of gaze preference, hippus, nystagmus or roving eye movements V: Facial sensation decreased left face VII: Facial movements consistent with left CN VII LMN palsy VIII: Hearing appears grossly intact to loud voice bilaterally IX/X: Palate difficult to accurately assess XI: Shoulder shrug appears asymmetric- decreased left side XII: Tongue protrudes without evidence of biting Motor exam: Severe left hemiparesis/plegia Sensory: Left hemiparesthesia Coordination: Deferred Reflexes: Deferred Gait: Deferred Results & Data Vital Signs (Past 12 Hours) Vital Signs Temp Pulse Pulse Resp BP BP Pulse Ox 01/24/24 11:45 36.5 C 62 20 142/90 H 96 01/24/24 10:45 36.6 C 60 22 171/94 H 93 01/24/24 09:50 55 L 153/91 H 01/24/24 09:45 36.5 C 55 L 16 181/83 H 93 01/24/24 08:50 36.5 C 55 L 16 169/89 H 96 01/24/24 08:00 55 L 01/24/24 07:45 36.6 C 51 L 16 170/85 H 99 01/24/24 06:47 36.6 C 57 L 20 156/93 H 98 01/24/24 05:47 36.7 C 62 16 180/103 H 98 01/24/24 04:47 36.6 C 59 L 16 180/89 H 98 01/24/24 03:47 36.8 C 57 L 16 179/99 H 98 01/24/24 02:47 37 C 57 L 18 168/94 H 96 01/24/24 01:47 36.9 C 60 16 182/95 H 97 01/24/24 00:47 36.9 C 58 L 18 163/91 H 96 01/24/24 00:00 57 L O2 Del Method O2 Flow Rate 01/24/24 11:45 Room Air 01/24/24 10:45 Room Air 01/24/24 09:50 01/24/24 09:45 Room Air 01/24/24 08:50 Room Air 01/24/24 08:00 01/24/24 07:45 Nasal Cannula 2 01/24/24 06:47 Nasal Cannula 2 01/24/24 05:47 Nasal Cannula 2 01/24/24 04:47 Nasal Cannula 2 01/24/24 03:47 Nasal Cannula 2 01/24/24 02:47 Nasal Cannula 2 01/24/24 01:47 Nasal Cannula 2 01/24/24 00:47 Nasal Cannula 2 01/24/24 00:00 Laboratory Results Abnormal lab results 01/23/24 01/23/24 01/23/24 Range/Units 13:17 18:09 20:53 WBC (4.8-10.8) K/ul RBC (4.70-6.10) M/uL Hgb (14.0-18.0) g/dl Hct (42.0-52.0) % Neut # (Auto) (1.40-6.50) K/uL [place] # (Auto) (0.11-0.59) K/uL BUN/Creatinine Ratio (10-20) Glucose (70-99(Fasting)) mg/dl POC Glucose 161 H 151 H (70-99) mg/dl Ur Specific [place] 1.036 H (1.000-1.030) 01/24/24 01/24/24 Range/Units 06:42 11:18 WBC 12.34 H (4.8-10.8) K/ul RBC 4.34 L (4.70-6.10) M/uL Hgb 12.8 L (14.0-18.0) g/dl Hct 39.5 L (42.0-52.0) % Neut # (Auto) 8.38 H (1.40-6.50) K/uL [place] # (Auto) 0.93 H (0.11-0.59) K/uL BUN/Creatinine Ratio 20.8 H (10-20) Glucose 131 H (70-99(Fasting)) mg/dl POC Glucose 119 H (70-99) mg/dl Ur Specific [place] (1.000-1.030) Diagnostic Findings Brain MRI 01/23/24 14:50 Brain MRI WITHOUT CONTRAST HISTORY: Left-sided facial droop. stroke symptoms TECHNIQUE: Multiplanar multisequence MRI of the brain was performed without the use of contrast. COMPARISON STUDY: Head CT 01/23/2024. FINDINGS: A 1.7 cm focus of restricted diffusion within the right hemipons consistent with an acute infarct. The remaining midline structures are intact. There is no mass, hematoma, midline shift. The ventricles and sulci demonstrate mild age-related involutional changes. Partial opacification of the left sphenoid sinus. The mastoid air cells are clear. The major vascular flow-voids at the skull base are well-maintained. Punctate foci of T2 hyperintensity seen within the white matter of the supratentorial brain are nonspecific but favor mild microvascular ischemic change. IMPRESSION: 1. Acute pontine infarct. 2. No intracranial hemorrhage. 3. Mild atrophy and microvascular ischemic changes. ACT 112: Negative or not required by law. Electronically signed by: Jarad Ruby M.D. 01/23/2024 5:15 PM Chest X-Ray 01/23/24 15:19 XR chest 1V portable HISTORY: possible aspiration COMPARISON: None. FINDINGS: No pneumothorax. No pleural effusions. There are low lung volumes. No focal lung consolidations to suggest a pneumonia. The cardiac silhouette is mildly enlarged. No evidence for pulmonary edema. No acute fractures. IMPRESSION: 1. Mild cardiomegaly. Otherwise, no acute process within the chest. 2. Low lung volumes. ACT 112: Negative or not required by law. Electronically signed by: Jarad Ruby M.D. 01/23/2024 4:19 PM Medications Administered Home Medications Medication Instructions Recorded Confirmed Last Taken ascorbic acid (vitamin C) 500 mg 1,000 mg PO DAILY 01/23/24 01/23/24 01/23/24 tablet (Vitamin C) multivitamin 1 tab PO DAILY 01/23/24 01/23/24 01/23/24 Active Medications Generic Name Dose Route Start Last Admin Trade Name Freq PRN Reason Stop Dose Admin Nicardipine HCl 25 mg/ Sodium 250 mls @ 0 mls/hr 01/23/24 11:15 01/24/24 10:04 Chloride IV 02/22/24 11:14 Not Given .Q0M LINN Protocol 0 MG/HR Parenteral Electrolytes 1,000 mls @ 80 mls/hr 01/23/24 21:30 01/24/24 10:03 Plasma-Lyte A Ph 7.4 IV 02/22/24 21:29 80 mls/hr .[id number] LINN Administration Miscellaneous 1 each 01/23/24 16:30 01/24/24 11:38 Icu Protocol For Hyperglycemia N/A 01/25/24 16:29 Not Given ACHS LINN
--- NOTE | 2024-01-24 13:24 | CT Scan Report ---
CT OF THE HEAD WITHOUT CONTRAST CLINICAL HISTORY: Post TPA/TNK 24 hour COMPARISON STUDY: Head CT, CTA of the head and MRI of the brain January 23, 2024. CT DOSE: 625.8 mGy.cm TECHNIQUE: Helical axial images of the head were obtained without IV contrast. Automated exposure con trol was utilized for the study. A dose lowering technique was utilized adhering to the principles o f ALARA. FINDINGS: No acute intracranial hemorrhage, midline shift or mass effect is present. Ventricular syst em is stable. Basal cisterns are patent. There are no extra-axial collections. A 1.7 cm hypodense rig ht pontine focus corresponds to the acute infarct an MRI January 23, 2024. Left sphenoid sinus is largely opacified. This is unchanged. There are no significant calvarial abnormalities. IMPRESSION: 1. No acute intracranial hemorrhage. 2. 1.7 cm acute pontine infarct, as shown on MRI of January 23, 2024. ACT 112: Negative or not required by law. Electronically signed by: Wesley Treviño M.D. 01/24/2024 1:23 PM
[2024-01-24] MEDS: ARTIFICIAL TEARS OPB SCH (13:28)
[2024-01-24] MEDS: hydrALAZINE HCL 20 MG/ML VIAL IV STA (15:50)
[2024-01-25 05:07] LABS: Hematocrit (blood only) 39.7 % (42.0-52.0); Hemoglobin 12.9 g/dl (14.0-18.0); Mean Corpuscular Hemoglobin 29.1 pg (25.0-34.0); Mean Corpuscular Hgb Conc 32.5 g/dL (32.0-36.0); Mean Corpuscular Volume 89.6 fL (80.0-100.0); Platelet Count 175 K/uL (130-400); RDW Coefficient of Variation 12.8 % (11.5-14.5); RDW Standard Deviation 42.1 fL (36.4-46.3); Red Blood Count 4.43 M/uL (4.70-6.10); White Blood Count 12.38 K/ul (4.8-10.8)
[2024-01-25 05:31] LABS: BUN Creatinine Ratio 15.7 (10-20); Calcium 8.6 mg/dl (8.6-10.3); Chol HDL Ratio 5.4 (0-5); Creatinine Clr Calc Pharmacy 72.2 ml/min; Est GFR (Non-African American) 83.7 ml/min; Magnesium 2.2 mg/dl (1.7-2.4); Phosphorus 2.5 mg/dl (2.5-4.9); Potassium 3.9 mmol/L (3.5-5.1)
[2024-01-25 07:45] LABS: Estimated Average Glucose 148 mg/dl; Hemoglobin A1C 6.8 % (4.5-5.6)
[2024-01-25] MEDS: CLOPIDOGREL BISULFATE 75 MG TAB PO SCH (08:17)
[2024-01-25] MEDS: ATORVASTATIN 40 MG TAB PO SCH (08:17)
[2024-01-25] MEDS: ASPIRIN 81 MG ECTAB PO SCH (08:17)
[2024-01-25] MEDS ORDERED: GLUCOSE 10 TAB/TUBE PO PRN (08:21)
[2024-01-25] MEDS ORDERED: GLUCOSE 40% GEL 15 GM TUBE PO PRN (08:21)
[2024-01-25] MEDS ORDERED: DEXTROSE 50% 50 ML SYRINGE IV PRN (08:21)
[2024-01-25] MEDS ORDERED: CARBOHYDRATES FOR HYPOGLYCEMIA PO PRN (08:21)
[2024-01-25] MEDS ORDERED: GLUCAGON FOR INJ 1 MG VIAL SQ PRN (08:21)
--- NOTE | 2024-01-25 09:59 | Consultation ---
Date of Consultation January 25, 2024 Assessment & Plan (1) Left carotid artery stenosis: Pt with severe L ICA stenosis noted, asymptomatic presently. Recommend CEA vs TCAR. Recommend pt be seen in office in a few weeks to discuss surgical options further. Should remain on DAPT unless contraindicated. Pt and family agreeable. History of Present Illness Reason for Consultation: L ICA stenosis Attending Physician: Ashley Cui MD History of Present Illness 78 yo m with hx of anemia, traumatic amputation of LUE, admitted after R hemispheric CVA, seen in consultation today for L ICA stenosis noted on CTA neck. Pt with significant aphasia and difficult to elicit hx from him. Family present, states he had a short term event of difficulty speaking 1 day prior to arrival which resolved. THe following day, had worsening sx of aphasia, facial droop, and L sided weakness, so came to [facility]. Underwent tPA administration, however, remains with aphasia, facial droop, and L sided numbness/weakness. Pt denies pain presently. Denies HARRIS, fever, chest pain, palpitations, SOB, abd pain, N/V, rest pain, claudication, other complaints. CTA neck demonstrates L ICA stenosis of 90%. R ICA patent. Brain MRI demonstrates R pontine infarct. Allergies Allergy/AdvReac Type Severity Reaction Status Date / Time No Known Allergies Allergy Mild Verified 01/23/24 13:51 Home Medications Medication Instructions Recorded Confirmed Type ascorbic acid (vitamin C) 500 mg 1,000 mg PO DAILY 01/23/24 01/23/24 History tablet (Vitamin C) multivitamin 1 tab PO DAILY 01/23/24 01/23/24 History Patient History Medical History Chronic anemia Hypertension Phantom limb syndrome with pain Lyme disease Surgical History Amputation of left arm Family History Father Myocardial infarction Coronary heart disease Brother Stroke Sister Cancer Social History Smoking Status: Never smoker Tobacco Type: Smokeless Tobacco (Dip or Chew) Smoking End Date: Former chewing tobacco; Second Hand Exposure: No; Do You Dip or Chew Tobacco: No; Tobacco Cessation Education Requested by Patient: No Hx Alcohol Use: No Hx Substance Use: No Preferred Language: Cantonese Irish Communication Ability: Effective Hearing Ability: Normal Canoe Inspector Required: No Beliefs That Will Affect Care: None marital status: Current Living Situation: Spouse current occupational status: retired Other Information That Helps Us Care for You: No Feels Safe at Home: Yes Safety Concerns: Feels Safe At This Time Seatbelt Use: always Sunscreen Use: No Assistive Devices: None Assistive Devices Comment: doesnt use cane often Review of Systems Review of Systems: All systems reviewed & are unremarkable except as noted in HPI & below (difficult d/t aphasia) Physical Exam Constitutional: WD/WN, vitals as above cooperative and comfortable; not in distress ENMT: Ears: no hearing impairment Neck: trachea midline Respiratory: normal respiratory effort, lungs clear to auscultation Auscultation: + diminished lung sounds Cardiovascular: Rate/Rhythm: regular rate and regular rhythm Vessels: posterior tibial pulses present, dorsalis pedis pulses present and radial pulses present (LUE amputation); + abnormal peripheral pulses Extremities: normal capillary refill; no edema Gastrointestinal (Abdomen): Inspection/Auscultation: abdomen normal to inspection and normal bowel sounds Percussion/Palpation: abdomen soft; abdomen nontender Musculoskeletal: Extremities: extremities normal to inspection and + amputation noted (LUE amputation noted); + abnormal strength (LLE 4/5) Skin: no rashes, warm and dry Neurologic: moves all extremities, + focal motor deficit (LLE weakness, L facial droop) and awake; not confused Speech / Cognition: + expressive aphasia Psychiatric: A+Ox3, euthymic affect Results & Data Vital Signs (Past 12 Hours) Vital Signs Temp Pulse Pulse Resp BP Pulse Ox O2 Del Method 01/25/24 09:00 Room Air 01/25/24 08:40 66 01/25/24 08:00 36.7 C 66 18 138/72 96 Room Air 01/25/24 06:00 59 L 18 01/25/24 04:00 36.9 C 62 16 151/92 H 95 Room Air 01/25/24 02:00 55 L 18 95 Room Air 01/25/24 00:00 37 C 56 L 19 157/87 H 95 Room Air 01/24/24 22:00 59 L 26 H 95 Room Air
--- NOTE | 2024-01-25 11:32 | Hospitalist Progress Note ---
Date of Service January 25, 2024 Assessment & Plan (1) Cerebrovascular accident: (2) Hypertension: (3) Chronic anemia: Plan Patient is 78 year old male with PMHx significant for chronic anemia, history traumatic LUE injury and amputation, phantom limb pain who presented to the ER w ith concern for left sided weakness, left facial droop, dysphasia that started about 09:30AM on the day of arrival. MRI showed an acute pontine stroke. Acute CVA s/p TNK administration CT head: No acute intracranial abnormality. CTA head and neck noted mild to moderate multifocal stenosis within the proximal to mid bilateral migration specialist, high-grade stenosis at the takeoff of the left internal carotid artery of approximately 90%, mild to moderate stenosis at the takeoff of the bilateral vertebral arteries due to the calcified plaque, a 1.6 cm right thyroid nodule. MRI brain noted acute pontine infarct Echo noted only trace aortic regurgitation Pt was evaluated by telestroke, received TNKase in the ER around 11:45 am Nicardipine drip was started in the ER for BP: 189/107 Patient still with left sided weakness, left facial droop, difficulty with speech upon evaluation around 1430 Was transferred to the ICU for further monitoring- repeat head CT in 24 hours stable Aspiration precautions PT/OT consult Neurology consulted, appreciate recs. Noted the following: -"Right pontine acute ischemic stroke s/p IV thrombolytic administration=Dysarthria, dysphagia, left hemiplegia, left CN VII LMN Palsy" -L eye patch qhs, eye lubrication -Recommend ZioPatch at DC if no evidence of arrhythmia during inpatient monitoring -Metabolic workup should include hgbA1c, fasting lipids, homocysteine, TSH, D Dimer -Recommend DAPT for at least 3 weeks -Recommend high dose statin therapy indefinitely if tolerated -Ok from neurology perspective for VTE prophylaxis -PT/OT/SLT to eval and treat -Recommend outpatient polysomnography Continue to monitor DMII hgba1c of 6.8 Indicates diagnosis of DMII ISS while hospitalized Consider metformin on discharge director labor standards consulted. 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 Appears baseline of 12's in 2019. Patient has refused labs past several years Consider anemia workup Hyperglycemia No formal DM diagnosis Hgba1c pending Sinusitis Likely chronic Noted on head CT, near complete opacification of L sphenoid sinus consider followup Cardiomegaly Mild, noted on chest xray Echo as above Diet: heart healthy, nectar, pureed DVT Prophylaxis: Lovenox SQ ordered per Neurology recs Dispo: PT/OT recommending rehab, pt currently awaiting placement Admission and Anticipated Discharge Date Admission Date: January 23, 2024 Subjective pt was seen while down in the ICU. and sons at bedside. Still with noted difficulty in speech, unable to move left leg. Review of Systems Review of Systems: All systems reviewed & are unremarkable except as noted in Subjective Physical Exam Physical Exam: General: Alert No acute distress Neuro: dysarthria noted, unable to move left lower extremitiy HEENT: NC/AT CV: RRR Resp: Breath sounds clear bilaterally, no increased effort of breathing. Abdomen:Soft, nontender, nondistended. Extremities: noted amputation of left upper extremity Results & Data Results & Data Vital Signs (Past 12 Hours) Vital Signs Temp Pulse Pulse Resp BP Pulse Ox O2 Del Method 01/25/24 09:00 Room Air 01/25/24 08:40 66 01/25/24 08:00 36.7 C 66 18 138/72 96 Room Air 01/25/24 06:00 59 L 18 01/25/24 04:00 36.9 C 62 16 151/92 H 95 Room Air 01/25/24 02:00 55 L 18 95 Room Air 01/25/24 00:00 37 C 56 L 19 157/87 H 95 Room Air (1) Cerebrovascular accident CVA mechanism: embolism Precerebral and cerebral artery: unspecified cerebral artery Qualified Code(s): I63.40 - Cerebral infarction due to embolism of unspecified cerebral artery
[2024-01-25] MEDS: INSULIN ASPART PER UNIT CHARGE SC SCH (12:40)
[2024-01-25] MEDS: ENOXAPARIN INJ 40 MG/0.4 ML SYR SQ SCH (15:01)
[2024-01-26] MEDS: hydrALAZINE HCL 20 MG/ML VIAL IV PRN (03:30)
[2024-01-26 06:29] LABS: Hematocrit (blood only) 41.8 % (42.0-52.0); Hemoglobin 13.9 g/dl (14.0-18.0); Mean Corpuscular Hemoglobin 29.9 pg (25.0-34.0); Mean Corpuscular Hgb Conc 33.3 g/dL (32.0-36.0); Mean Corpuscular Volume 89.9 fL (80.0-100.0); Platelet Count 159 K/uL (130-400); RDW Coefficient of Variation 12.8 % (11.5-14.5); RDW Standard Deviation 42.3 fL (36.4-46.3); Red Blood Count 4.65 M/uL (4.70-6.10); White Blood Count 12.89 K/ul (4.8-10.8)
[2024-01-26 06:46] LABS: Albumin Globulin Ratio 1.1 (0.9-2); Albumin Level 4.1 gm/dl (3.4-5.0); BUN Creatinine Ratio 21.8 (10-20); Bilirubin,Total 0.8 mg/dl (0.2-1.0); Creatinine Clr Calc Pharmacy 76.8 ml/min; Est GFR (African American) 99.5 ml/min; Est GFR (Non-African American) 85.9 ml/min; Globulin 3.6 gm/dl (2.5-4.0); Magnesium 2.1 mg/dl (1.7-2.4); Phosphorus 2.7 mg/dl (2.5-4.9); Potassium 3.6 mmol/L (3.5-5.1); Total Protein 7.7 gm/dl (6.0-8.3)
--- NOTE | 2024-01-26 14:57 | Pharmacy Report ---
- Date of Service January 26, 2024 - Pharmacy CVA/TIA Medication Review Medications to Prevent Stroke handout has been added to the patients discharge packet. Antiplatelet(s) * Aspirin 81 mg + Plavix 75 mg; per neuro rec DAPT for at least 3 weeks Cholesterol * High intensity statin: atorvastatin 40 mg daily DVT Prophylaxis * Enoxaparin SQ Therapeutic Anticoagulation * No history of Afib/Aflutter noted, per neurology zio patch recommended at discharge if no evidence of arrhythmia during inpatient stay Type 2 Diabetes * A1c of 6.8% does indicate new diagnosis of type II diabetes. Could consider initiation of a diabetes medication with proven CVD benefit, such as a GLP-1 agonist or SGLT2 inhibitor. It is reasonable to defer selection to their outpatient provider due to familiarity with risks/benefits of such therapies (plus pertinent insurance/prior auth considerations).
[2024-01-26] MEDS ORDERED: STROKE PATIENT DISCHARGE STA (15:45)
--- NOTE | 2024-01-26 15:45 | Discharge Summary ---
Date of Service January 26, 2024 Admission HPI Per Admitting Provider Patient is 78 year old male with PMH chronic anemia, history traumatic LUE injury and amputation, phantom limb pain, presented to ER with c/o stroke like symptoms today. at bedside and assists with history as patient not able to provide much history. States yesterday had episode where he couldn't speak around 4pm and he tried to yell to his but was unable to. states he was in living room and she was in kitchen and unaware he was having difficulty until he came and told her this happened. When he told her this he had no active symptoms and his speech was normal and didn't have any extremity weakness. He was fine rest of day. He cannot give any further history. Today woke up and felt fine. Went to christian and was fine however during christian was sitting and was unable to stand up. It was noticed patient had left sided facial droop and couldn't move left side of body. This reported around 09:30 today. Patient complains of numbness to left side of body. Upon arrival to ER patient noted with difficulty of speech, left sided weakness and left facial droop. Telestroke evaluation. He received TNKase in the ER around 11:45 am. Nicardipine drip started in the ER. Patient still with left sided weakness, left facial droop, difficulty with speech upon hospitalist evaluation around 1430. Denied N/V/D, abdominal pain, fever/chills, CP, SOB. Further ROS difficult to obtain secondary to patient's current dysphasia status. Admission Exam Per Admitting Provider General: +appears tired, has eyes closed, WDWN elderly male Head: normocephalic, atraumatic Eyes: PERRL, EOM's intact, conjunctiva non-injected, anicteric ENT: normal inspection external ears, nose, mucous membranes moist Neck: supple, trachea midline Lungs: clear, no respiratory distress, no wheezing/rhonchi/rales CV: RRR, no murmur, no JVD, no pretibial edema Abd: normal BS, soft, non-tender Ext: no cyanosis, no calf tenderness; LUE: +amputation above elbow Neuro: Eyes closed but Alert. Reports feels difficult to keep eyes open. no nystagmus, decreased facial sensation left side, +left facial droop, hearing grossly intact, + dysarthria, +decreased sensation left arm stump and left lateral leg, Patient unable to actively lift leg or left arm stump Skin: warm, dry Principal Diagnosis Acute CVA Discharge Exam General: WD/WN M in NAD. Alert No acute distress Neuro: awake, alert, + dysarthria, + left lower extremity weakness HEENT: NC/AT CV: RRR Resp: Breath sounds clear bilaterally, no increased effort of breathing. Abdomen:Soft, nontender, nondistended. Extremities: noted amputation of left upper extremity Discharge Data Allergies Allergy/AdvReac Type Severity Reaction Status Date / Time No Known Allergies Allergy Mild Verified 01/23/24 13:51 Consultations 01/23/24 13:14 ED Decision to Admit Stat 01/23/24 14:50 Consult Recycling Director Routine Consult Neurology Routine 01/24/24 12:42 Consult Vascular Surgery Routine Ordered Studies 01/23/24 10:39 CT angio head w con Stat FINDINGS: There is no mass, hematoma, midline shift, or acute infarct. Visualized intracranial internal carotid arteries, distal vertebral arteries, and basilar artery are widely patent. There is no significant stenosis, occlusion, or aneurysm seen within the bilateral ACAs or MCAs. There is mild to moderate multifocal stenosis within the proximal to mid bilateral centrifugal separator. . The major dural venous sinuses are patent. The aortic arch and proximal great vessels are widely patent. There is 1.6 cm right thyroid nodule. Mild to moderate focal narrowing at the origins of the vertebral arteries due to the calcified plaque. Otherwise, the remaining bilateral vertebral arteries show no significant stenosis, occlusion, or dissection. Moderate calcified plaque within the bilateral carotid bifurcations. The bilateral common carotid arteries are widely patent. No significant stenosis or occlusion within the right internal carotid artery. There is severe focal stenosis within the takeoff of the left internal carotid artery demonstrating approximately 90% narrowing. The mid to distal left internal carotid artery is widely patent. IMPRESSION: 1. Mild to moderate multifocal stenosis within the proximal to mid bilateral centrifugal separator. 2. However, no evidence for arterial occlusion or aneurysm within the major cerebral arteries. 3. High-grade stenosis at the takeoff of the left internal carotid artery of approximately 90%. 4. Mild to moderate stenosis at the takeoff of the bilateral vertebral arteries due to the calcified plaque. 5. A 1.6 cm right thyroid nodule CT angio neck with con Stat FINDINGS: There is no mass, hematoma, midline shift, or acute infarct. Visualized intracranial internal carotid arteries, distal vertebral arteries, and basilar artery are widely patent. There is no significant stenosis, occlusion, or aneurysm seen within the bilateral ACAs or MCAs. There is mild to moderate multifocal stenosis within the proximal to mid bilateral centrifugal separator. . The major dural venous sinuses are patent. The aortic arch and proximal great vessels are widely patent. There is 1.6 cm right thyroid nodule. Mild to moderate focal narrowing at the origins of the vertebral arteries due to the calcified plaque. Otherwise, the remaining bilateral vertebral arteries show no significant stenosis, occlusion, or dissection. Moderate calcified plaque within the bilateral carotid bifurcations. The bilateral common carotid arteries are widely patent. No significant stenosis or occlusion within the right internal carotid artery. There is severe focal stenosis within the takeoff of the left internal carotid artery demonstrating approximately 90% narrowing. The mid to distal left internal carotid artery is widely patent. IMPRESSION: 1. Mild to moderate multifocal stenosis within the proximal to mid bilateral centrifugal separator. 2. However, no evidence for arterial occlusion or aneurysm within the major cerebral arteries. 3. High-grade stenosis at the takeoff of the left internal carotid artery of approximately 90%. 4. Mild to moderate stenosis at the takeoff of the bilateral vertebral arteries due to the calcified plaque. 5. A 1.6 cm right thyroid nodule CT head/brain wo con Stat Findings: Near complete opacification of the left sphenoid sinus. The mastoid air cells are clear. The calvarium and skull base are intact. The ventricles and sulci are within normal limits. There is no mass, hematoma, midline shift, or acute infarct. Impression: No acute intracranial abnormality. 01/23/24 14:50 MR brain wo con Routine FINDINGS: A 1.7 cm focus of restricted diffusion within the right hemipons consistent with an acute infarct. The remaining midline structures are intact. There is no mass, hematoma, midline shift. The ventricles and sulci demonstrate mild age-related involutional changes. Partial opacification of the left sphenoid sinus. The mastoid air cells are clear. The major vascular flow-voids at the skull base are well-maintained. Punctate foci of T2 hyperintensity seen within the white matter of the supratentorial brain are nonspecific but favor mild microvascular ischemic change. IMPRESSION: 1. Acute pontine infarct. 2. No intracranial hemorrhage. 3. Mild atrophy and microvascular ischemic changes. 01/24/24 11:50 CT head/brain wo con Routine FINDINGS: No acute intracranial hemorrhage, midline shift or mass effect is present. Ventricular system is stable. Basal cisterns are patent. There are no extra-axial collections. A 1.7 cm hypodense right pontine focus corresponds to the acute infarct an MRI January 23, 2024. Left sphenoid sinus is largely opacified. This is unchanged. There are no significant calvarial abnormalities. IMPRESSION: 1. No acute intracranial hemorrhage. 2. 1.7 cm acute pontine infarct, as shown on MRI of January 23, 2024. Hospital Course (1) Cerebrovascular accident: (2) Hypertension: (3) Chronic anemia: Plan Patient is 78 year old male with PMHx significant for chronic anemia, history traumatic LUE injury and amputation, phantom limb pain who presented to the ER with concern for left sided weakness, left facial droop, dysphasia that started about 09:30AM on the day of arrival. MRI showed an acute pontine stroke. Acute CVA s/p TNK administration CT head: No acute intracranial abnormality. CTA head and neck noted mild to moderate multifocal stenosis within the proximal to mid bilateral centrifugal separator, high-grade stenosis at the takeoff of the left internal carotid artery of approximately 90%, mild to moderate stenosis at the takeoff of the bilateral vertebral arteries due to the calcified plaque, a 1.6 cm right thyroid nodule. MRI brain noted acute pontine infarct Echo noted only trace aortic regurgitation Pt was evaluated by telestroke, received TNKase in the ER around 11:45 am Nicardipine drip was started in the ER for BP: 189/107 Patient still with left sided weakness, left facial droop, difficulty with speech upon evaluation around 1430 Was transferred to the ICU for further monitoring- repeat head CT in 24 hours stable Aspiration precautions PT/OT consult Neurology consulted, appreciate recs. Noted the following: -"Right pontine acute ischemic stroke s/p IV thrombolytic administration=Dysarthria, dysphagia, left hemiplegia, left CN VII LMN Palsy" -L eye patch qhs, eye lubrication -Recommend ZioPatch at DC if no evidence of arrhythmia during inpatient monitoring -Metabolic workup should include hgbA1c, fasting lipids, homocysteine, TSH, D Dimer - LDL 149, TSH 2.1 (wnl), homocysteine - pending -Recommend DAPT for at least 3 weeks - pt currently on ASA and plavix -Recommend high dose statin therapy indefinitely if tolerated - currently on lipitor 40 -Ok from neurology perspective for VTE prophylaxis -PT/OT/SLT to eval and treat -> pls see speech eval notes from 01/26/24 -Recommend outpatient polysomnography Continue to monitor BP occasionally elevated - received prn hydralazine. cont. to monitor BP as outpt DMII hgba1c of 6.8 Indicates diagnosis of DMII ISS while hospitalized Consider metformin on discharge staff development educator consulted. 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 Appears baseline of 12's in 2019. Patient has refused labs past several years Consider anemia workup Sinusitis Likely chronic Noted on head CT, near complete opacification of L sphenoid sinus consider followup Cardiomegaly Mild, noted on chest xray Echo as above Dispo: plan to discharge to rehab - [facility] Total Time Total Time Spent Total Time Spent (In Minutes): 40 Discharge Plan Discharge Items Patient Disposition: Transfer Inpatient Rehab Fac Reason For Visit: ACUTE CVA Discharge Diagnosis: Acute CVA Activity: Per Instructions section Non-emergency contact: Primary Care Provider, Surgeon, Specialist and Neurologist Call non-emergency contact if: you have any medication questions and your symptoms worsen Follow-up/Referrals: Ashleigh Jackson DO [Primary Care Provider] - Diet: Carb Consistent or DM2 and Heart Healthy Diet Comment: Minced and moist texture- see speech eval Addtl Attending Provider Instructions: Follow up with primary care physician , neurologist and vascular surgeon. Take aspirin and plavix for 3 weeks then continue with aspirin. Take atorvastatin (lipitor) 40 mg daily. Recommend using artificial tear/ eye drops. Monitor your blood pressure closely. You may need to be started on a blood pressure medication by your primary care doctor if your blood pressure is elevated. Pending Studies at Discharge: No Stand-Alone Forms: My [facility] Skilled Items Patient informed of condition?: Yes DNR: Yes Discharge Level of Care: Acute rehab Communicable Disease: No Discharge Prognosis: Stable Lines: None Urinary Catheter: No Medications and DC Order Prescriptions: New clopidogrel 75 mg Tablet 75 mg PO QAM Qty: 20 0RF atorvastatin 40 mg Tablet 40 mg PO QAM Qty: 30 0RF aspirin 81 mg Tablet,Delayed Release (Dr/Ec) 81 mg PO QAM Qty: 30 0RF Continued multivitamin Tablet 1 tab PO DAILY ascorbic acid (vitamin C) [Vitamin C] 500 mg Tablet 1,000 mg PO DAILY Discharge Orders: Discharge Order (Routine); Ordered 01/26/24 Ordered By: Ian Vo/Other Patient Handouts: Stroke and Heart Disease, Anticoagulants, Symptoms of Stroke, What Is Ischemic Stroke?, Stroke: Taking Medicines, Stroke: Self-Care, Stroke: Tips for Swallowing, Hypertension Stroke Link, Discharge Instructions for Stroke, Risk Factors for Stroke, Stroke Swallowing Problems Post, High Blood Pressure Tx Admission Data Admit Date/Time: 01/23/24 13:15 Attending Provider: Ian Renteria Admit Provider: Maura Bird Primary Care Provider: Ashleigh Jackson Other Providers: Froylan Corona; [facility]; [place]; Maura Bird; Alex Palmer; Eliu Llanes; Michele Grimaldo Other Interventions: Discharge Summary Assessment (RN) Last Done: 01/26/24 15:25
== END 2024-01-26 16:55 | DRG 62 ==
LOC: ED 10:53 → 1E 13:15 → SUATTDRO 13:15 → 1E 14:55 → 4W 01-25 18:53

== ENCOUNTER 2024-03-21 05:57 | Inpatient (IN) ==
--- NOTE | 2024-03-03 15:19 | Anesthesiology Consultation ---
Date of Service March 03, 2024 Assessment & Plan (1) Encounter for pre-operative examination: - Check BSG AM DOS - Infectious disease screening: Per assessment on 03/03/24: No known recent infectious disease contacts or current infectious disease symptoms. - ASA/Plavix instructions per surgeon/prescriber - [facility] neurology visit (02/28/24): "He was seen at [facility] 01/23/24.. Work up was done and he was found to have an acute pontine stroke. He also has a high-grade stenosis at the takeoff of the left internal carotid artery of approximately 90%. He was started on plavix and aspirin and is seeing vascular surgery as an outpatient. He was in rehab but still unable to move is left leg and is primarily wheelchair bound. He is also currently wearing a ZIO heart monitor. Denies CP, SOB, abdominal pain, falls... Continue plavix 75 mg and aspirin 81 mg daily -will readdress by vascular at appointment.. Optimize HTN HLD, LDL <70 consider patients age.. Follow with vascular surgery for possible CEA.. ZIO patch currently wearing" > Zio monitor since completed- no evidence of A.fib or flutter. Chart Review Chart Review: Acceptable Risk for Surgery and Patient NOT seen in Pre Admission Testing History Surgery Operation Date: 03/21/24 08:00 Proposed Procedures p Left Transcarotid Artery Revascularization - Alex Palmer MD Height/Weight Height: 5 ft 9 in Weight: 73.482 kg Allergies Allergy/AdvReac Type Severity Reaction Status Date / Time No Known Allergies Allergy Mild Verified 03/03/24 13:01 Medications Home Medications Medication Instructions Recorded Confirmed Last Taken ascorbic acid (vitamin C) 500 mg 1,000 mg PO QAM 01/23/24 03/03/24 01/23/24 tablet (Vitamin C) multivitamin 1 tab PO QAM 01/23/24 03/03/24 01/23/24 aspirin 81 mg tablet,delayed 81 mg PO QAM #30 tabs 01/26/24 03/03/24 Unknown release atorvastatin 40 mg tablet 40 mg PO QAM #30 tabs 01/26/24 03/03/24 Unknown clopidogrel 75 mg tablet 75 mg PO QAM #20 tabs 01/26/24 03/03/24 Unknown metformin 500 mg tablet 500 mg PO QAM 03/03/24 03/03/24 Unknown Past Medical History Medical History Chronic anemia Hearing loss + hearing aids ("doesn't wear often") History of hypertension History of stroke Ischemic stroke 01/23/24 > residual left leg deficits, found to have significant carotid disease (reason for upcoming surgery) Left carotid artery stenosis Neck CTA 01/23/24: High-grade stenosis at the takeoff of the LICA of approximately 90% Lyme disease Dx 2020 per records Phantom limb syndrome with pain Thyroid nodule right side, monitoring Type 2 diabetes mellitus Per [facility] records Taking Metformin, last A1C 01/25/24 6.8% Past Family History Family History Father Myocardial infarction Coronary heart disease Brother Stroke Sister Cancer Past Surgical History Surgical History Amputation of left arm 2016, 2/2 trauma Hx of colonoscopy Social History Smoking Status: Former smoker Do You Dip or Chew Tobacco: Yes (hx quit 1976; advised) Smoking End Date: many years ago, occasional cigar Hx Alcohol Use: Yes (none for years, since 1976) Hx Substance Use: No substance use type: does not use Lab Results Anesthesia Preop Results Results Anesthesia Widget: WBC 11.12 K/ul (4.8-10.8) H 03/03/24 Hgb 12.6 g/dl (14.0-18.0) L 03/03/24 Hct 38.5 % (42.0-52.0) L 03/03/24 Plt 181 K/uL (130-400) 03/03/24 Na 136 mmol/L (136-145) 03/03/24 K 4.1 mmol/L (3.5-5.1) 03/03/24 Cl 102 mmol/L (98-107) 03/03/24 CO2 25 mmol/L (21-32) 03/03/24 BUN 16 mg/dl (6-23) 03/03/24 Creat 0.74 mg/dl (0.6-1.4) 03/03/24 Glucose Level 101 mg/dl (70-99(Fasting)) H 03/03/24 PT 10.4 Seconds (9.0-12.0) 03/03/24 PTT 25 Seconds (21-31) 03/03/24 INR 1.0 (0.9-1.1) 03/03/24 TSH 2.156 uIu/ml (0.300-4.500) 01/24/24 HA1c 6.8 % (4.5-5.6) H 01/25/24 Urine Color Yellow 01/23/24 Urine Appearance Clear (Clear) 01/23/24 Urine pH 7.5 (4.5-7.5) 01/23/24 Urine Specific [place] 1.036 (1.000-1.030) H 01/23/24 Urine Protein Negative (Negative) 01/23/24 Urine Glucose (UA) Negative (Negative) 01/23/24 Urine Ketones Negative (Negative) 01/23/24 Urine Blood Negative (Negative) 01/23/24 Urine Nitrite Negative (Negative) 01/23/24 Urine Bilirubin Negative (Negative) 01/23/24 Urine Urobilinogen Negative (Negative) 01/23/24 Urine Leukocyte Esterase Negative (Negative) 01/23/24 Blood Type O Negative 03/03/24 Antibody Screen NEGATIVE 03/03/24 Testing Electrocardiogram Date: 01/23/24 NSR at 64bpm. Minimal voltage criteria for LVH, may be normal variant (R in aVL). Chest X-Ray Date: 01/23/24 FINDINGS: No pneumothorax. No pleural effusions. There are low lung volumes. No focal lung consolidations to suggest a pneumonia. The cardiac silhouette is mildly enlarged. No evidence for pulmonary edema. No acute fractures. IMPRESSION: Mild cardiomegaly. Otherwise, no acute process within the chest. Low lung volumes. Echocardiogram Date: 01/23/24 EF 60-65%. No cardiac source of emboli noted. LV wall motion is normal. No interatrial shunt. Mild TR. Other Testing Head/Neck CTA Date: 01/23/24 1. Mild to moderate multifocal stenosis within the proximal to mid bilateral laundry operator finishing. 2. However, no evidence for arterial occlusion or aneurysm within the major cerebral arteries. 3. High-grade stenosis at the takeoff of the left internal carotid artery of approximately 90%. 4. Mild to moderate stenosis at the takeoff of the bilateral vertebral arteries due to the calcified plaque. 5. A 1.6 cm right thyroid nodule Brain MRI Date: 01/23/24 FINDINGS: A 1.7 cm focus of restricted diffusion within the right hemipons consistent with an acute infarct. The remaining midline structures are intact. There is no mass, hematoma, midline shift. The ventricles and sulci demonstrate mild age-related involutional changes. Partial opacification of the left sphenoid sinus. The mastoid air cells are clear. The major vascular flow-voids at the skull base are well-maintained. Punctate foci of T2 hyperintensity seen within the white matter of the supratentorial brain are nonspecific but favor mild microvascular ischemic change. IMPRESSION: Acute pontine infarct. No intracranial hemorrhage. Mild atrophy and microvascular ischemic changes. Head CT Date: 01/24/24 FINDINGS: No acute intracranial hemorrhage, midline shift or mass effect is present. Ventricular system is stable. Basal cisterns are patent. There are no extra-axial collections. A 1.7 cm hypodense right pontine focus corresponds to the acute infarct an MRI January 23, 2024. Left sphenoid sinus is largely opacified. This is unchanged. There are no significant calvarial abnormalities. IMPRESSION: No acute intracranial hemorrhage. 1.7 cm acute pontine infarct, as shown on MRI of January 23, 2024. 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 Predominant underlying rhythm was Sinus Rhythm. 51 Supraventricular Tachycardia runs occurred, the run with the fastest interval lasting 4 beats with a max rate of 171 bpm, the longest lasting 11.6 secs with an avg rate of 121 bpm. Some episodes of Supraventricular Tachycardia may be possible Atrial Tachycardia with variable block. Isolated SVEs were occasional (1.5%, ), SVE Couplets were rare (<1.0%, 529), and SVE Triplets were rare (<1.0%, 85). Isolated VEs were rare (<1.0%), VE Couplets were rare (<1.0%), and no VE Triplets were present. The patient recorded 1 event marker and 1 diary entry correlating with sinus rhythm Impression: Sinus rhythm, average rate 67 beats per minute with occasional atrial ectopic beats and short runs of atrial tachycardia. Atrial fibrillation or flutter not observed.
[2024-03-21] MEDS: LACTATED RINGER'S 1,000 ML BAG IV SCH (06:25)
[2024-03-21] MEDS ORDERED: fentaNYL citrate PF 100 MCG/2 ML VIAL ONE (07:13)
[2024-03-21] MEDS ORDERED: MIDAZOLAM HCL 1 MG/ML 2ML VIAL ONE (07:13)
[2024-03-21] MEDS ORDERED: PHENYLEPHRINE HCL 10 MG/ML VIAL ONE (07:13)
[2024-03-21] MEDS ORDERED: NITROGLYCERIN 5 MG/ML 10 ML VIAL ONE (07:13)
[2024-03-21] MEDS ORDERED: SUGAMMADEX SODIUM 200 MG/2 ML VIAL IV ONE (07:13)
[2024-03-21] MEDS ORDERED: PROPOFOL IV EMULSION 10 MG/ML 20 ML VIAL IV ONE (07:13)
[2024-03-21] MEDS ORDERED: LIDOCAINE 2% 2 ML VIAL/AMP(20MG/ML) INFIL ONE (07:13)
[2024-03-21] MEDS ORDERED: ePHEDrine sulfate 50 MG/ML AMP ONE (07:13)
[2024-03-21] MEDS ORDERED: ROCURONIUM BROMIDE 10 MG/ML 5 ML VIAL IV ONE ×2 (07:13→08:45)
--- NOTE | 2024-03-21 07:29 | History & Physical Report ---
Date of Service March 21, 2024 Assessment & Plan (1) Stenosis of left internal carotid artery: Plan: At this point we discussed the risks options benefits of treating his left carotid stenosis even though it is asymptomatic. We went over carotid endarterectomy versus stenting. He understood the risks options and benefits of endarterectomy versus stenting. He is also documented in the consent form. He agreed to go ahead with TCAR of his left internal carotid artery. 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 Pt with significant aphasia and difficult to elicit hx from him. Family present, states he had a short term event of difficulty speaking 1 day prior to arrival which resolved. THe following day, had worsening sx of aphasia, facial droop, and L sided weakness, so came to [facility]. Underwent tPA administration, however, remains with aphasia, facial droop, and L sided numbness/weakness. Pt denies pain presently. Denies HARRIS, fever, chest pain, palpitations, SOB, abd pain, N/V, rest pain, claudication, other complaints. Allergies Allergy/AdvReac Type Severity Reaction Status Date / Time No Known Allergies Allergy Mild Verified 03/21/24 06:36 Home Medications Medication Instructions Recorded Confirmed Type ascorbic acid (vitamin C) 500 mg 1,000 mg PO QAM 01/23/24 03/21/24 History tablet (Vitamin C) multivitamin 1 tab PO QAM 01/23/24 03/21/24 History aspirin 81 mg tablet,delayed 81 mg PO QAM #30 tabs 01/26/24 03/21/24 Rx release atorvastatin 40 mg tablet 40 mg PO QAM #30 tabs 01/26/24 03/21/24 Rx clopidogrel 75 mg tablet 75 mg PO QAM #20 tabs 01/26/24 03/21/24 Rx metformin 500 mg tablet 500 mg PO QAM 03/03/24 03/21/24 History Past Med/Surg History Problem List (Updated 03/21/24 @ 07:28 by Alex Palmer MD) Stenosis of left internal carotid artery Encounter for pre-operative examination Medical History Type [address] [facility] records Taking Metformin, last A1C 01/25/24 6.8% Thyroid nodule right side, monitoring Hearing loss + hearing aids ("doesn't wear often") History of hypertension Chronic anemia History of stroke Ischemic stroke 01/23/24 > residual left leg deficits, found to have significant carotid disease (reason for upcoming surgery) Left carotid artery stenosis Neck CTA 01/23/24: High-grade stenosis at the takeoff of the LICA of approximately 90% Phantom limb syndrome with pain Lyme disease Dx 2020 per records Surgical History Amputation of left arm 2017, 2/2 trauma Hx of colonoscopy Family History Father Myocardial infarction Coronary heart disease Brother Stroke Sister Cancer Social History Smoking Status: Former smoker Tobacco Type: Smokeless Tobacco (Dip or Chew) Smoking End Date: many years ago, occasional cigar; Second Hand Exposure: No; Do You Dip or Chew Tobacco: Yes (hx quit 1976; advised); Tobacco Cessation Education Requested by Patient: No Hx Alcohol Use: Yes (none for years, since 1976) Hx Substance Use: No Preferred Language: Portuguese Communication Ability: Effective Hearing Ability: Normal Binder Sorter Required: No Beliefs That Will Affect Care: None marital status: Current Living Situation: Spouse current occupational status: retired Other Information That Helps Us Care for You: No Feels Safe at Home: Yes Safety Concerns: Feels Safe At This Time Seatbelt Use: always Sunscreen Use: No Assistive Devices: Glasses, Hearing Aid - Bilateral, Walker and Wheelchair Assistive Devices Comment: reading glasses prn Review of Systems All systems reviewed & are unremarkable except as noted in HPI & below Physical Exam Physical Exam: Constitutional: WD/WN, vitals as a deidre cooperative and comfortable; n ot in distress ENMT: Ears: no hearing i mpairment Neck: trachea midline Respiratory: normal respiratory effort, lungs jean claude ar to auscultation Auscultation: + diminished lung so unds Cardiovascular: Rate/Rhythm: regul ar rate and regula r rhythm Vessels: posterior tibial pulses present, do rsalis pedis pulse s present and radi al pulses present (LUE amputation); + abnormal periphe ral pulses Extrem ities: normal capi llary refill; no e tonya Gastrointestinal ( Abdomen): Inspection/Auscult ation: abdomen nor mal to inspection and normal bowel s ounds Percussion/ Palpation: abdomen soft; abdomen non tender Musculoskeletal: Extremities: extre mities normal to i nspection and + am putation noted (GIOVANNI E amputation noted ); + abnormal stre ngth (LLE 4/5) Skin: no rashes, warm an d dry Neurologic: moves all extremit ies, + focal motor deficit (LLE weak ness, L facial segun op) and awake; not confused Speech / Cognition: + exp ressive aphasia Psychiatric: A+Ox3, euthymic af fect Results & Data Vital Signs (Past 12 Hours) Vital Signs Temp Pulse Resp BP Pulse Ox O2 Del Method 03/21/24 06:37 36.8 C 63 20 126/72 95 Room Air
[2024-03-21] MEDS ORDERED: GLYCOPYRROLATE 0.2 MG/ML VIAL ONE (07:44)
[2024-03-21] MEDS ORDERED: PHENYLEPHRINE 100MCG/ML 5ML SYR IV PRN (07:47)
[2024-03-21] MEDS ORDERED: ATROPINE SULFATE 0.1 MG/ML 10ML SYR IV PRN (07:47)
[2024-03-21] MEDS ORDERED: ONDANSETRON INJ 2 MG/ML 2 ML VIAL IV PRN (07:47)
[2024-03-21] MEDS ORDERED: fentaNYL citrate PF 100 MCG/2 ML VIAL IV PRN (07:47)
[2024-03-21] MEDS ORDERED: KETOROLAC 30 MG/ML VIAL IV PRN (07:47)
[2024-03-21] MEDS ORDERED: ePHEDrine sulfate 50 MG/ML AMP IV PRN (07:47)
[2024-03-21] MEDS ORDERED: DROPERIDOL 5 MG/2 ML VIAL IV PRN (07:47)
[2024-03-21] MEDS: CEFAZOLIN 2,000 MG/15 ML SYR IV SCH (08:35)
[2024-03-21] MEDS ORDERED: HEPARIN SOD (PORCINE) 1000 UNIT/ML ONE (08:45)
[2024-03-21] MEDS ORDERED: PROTAMINE SULFATE 10 MG/ML 5 ML VIAL IV ONE (09:21)
[2024-03-21] MEDS: ceFAZolin 330 MG/ML 1 GM VIAL ONE (09:32)
[2024-03-21] MEDS: BUPIVACAINE/EPINEPHRINE 0.5% MPF 1:200,000 30 ML VIAL ONE (09:32)
[2024-03-21] MEDS: GELATIN SPONGE SZ 100 ONE (09:33)
[2024-03-21] MEDS: THROMBIN FOR SOLN 20000 UNIT KIT ONE (09:33)
[2024-03-21] MEDS: HEPARIN (PORCINE) 1000 UNIT/ML 10 ML (CATH LAB USE ONLY) ONE (09:35)
--- NOTE | 2024-03-21 09:39 | Procedure Note ---
Angiogram Post Procedure Fluoroscopy Time (minutes): 4 Radiation (mGy): 47 Contrast: 15 Post Operative Report Pre & Post Diagnosis Operation Date: 03/21/24 08:00 Pre-Op Diagnosis: Left carotid artery stenosis. Post-Op Diagnosis: Left carotid artery stenosis. I identified the patient and participated in the time-out.: Yes Procedure Operation Date: 03/21/24 08:00 Actual Procedures p Left Transcarotid Artery Revascularization(Left), Ultrasound localization of right common femoral vein - Alex Palmer MD Surgeon Alex Palmer MD Lottery Office Manager Maryana,PAC Estimated Blood Loss 20 Findings Consistent with Post-Op Diagnosis Specimens none Anesthesia Type General Complications none Disposition Accompanied Patient To Recovery: No Disposition: Recovery Room Indications This is a 69-year-old who had a severe stenosis of his left internal carotid artery. Intervention was recommended. He elected to go ahead with a TCAR repair of his left internal carotid artery stenosis. He understood the risks options and benefits of the procedure which were also documented consent. He agreed to go ahead with the procedure. Description of Procedure The patient was taken to the operating room and placed in supine position. After general anesthesia was accomplished the groins and left side of the neck and chest were prepped and draped in a sterile manner. Timeout was performed and the patient was identified. A transverse incision was made just above the clavicle between the heads of the sternocleidomastoid. This is carried down to where the common carotid artery was identified. It was isolated. It was slung with umbilical tape. Next the U stitch was placed in the common carotid artery with a 5-0 Prolene suture. Patient was given 8000 heparin at that time. Ultrasound was then used to localize the right common femoral vein. The vein was patent and compressed easily. Under ultrasound guidance the left common femoral vein was punctured and the venous sheath was inserted. This was aspirated and flushed with heparinized saline. ACT at that time was 247. We therefore gave another 2000 units of heparin. Using micropuncture technique the common carotid artery was punctured. The micro sheath was inserted to 3 cm. Injection was then done showing the bifurcation. There was a significant lesion seen at the origin of the internal carotid artery on the left side. We then inserted the J-wire left and short of the lesion. The micro sheath was removed and the TCAR sheath was inserted. Once it was in place and held against the artery it was sutured to the chest wall and the incision edge. We then flushed the tubing appropriately. The venous return to was clamped onto the TCAR sheath. It was flushed through and then attached to the venous inflow sheath in the right groin. Sheath was checked for flow. The saline cleared nicely. The common carotid artery was then clamped. Flow reversal was instituted. We inserted a 5.5 x 35 balloon backloaded on the wire. The wire was passed through the lesion into the petrous portion of the internal carotid. The 5.5 balloon was then advanced to the lesion. Lesion was then predilated with a 5.5 mm balloon. Balloon was removed. We then inserted the 9-7 x 40 stent. This was deployed across the lesion without difficulty. The catheter was removed. The carotid was allowed to go 2 minutes with flow reversal. Completion angiogram was done at that time which showed a widely patent carotid stent. At that point the common carotid artery was unclamped. The venous return tubing was clamped and removed from the TCAR sheath. The blood was allowed to flow back into the venous system. Once this was completed the sheath was pulled from the groin and pressure was applied. The TCAR sheath was then removed and the 5-0 Prolene suture securely tied. 25 mg of protamine was given. Hemostasis was noted of the puncture site. Wound was irrigated with Ancef solution. Adequate hemostasis was obtained of the wound. Once this was noted the wound was closed in usual fashion using a 3-0 Vicryl suture for the subcutaneous layer and a 4-0 subcuticular Vicryl suture for the skin edges. Dermabond was used for dressing.The patient left the operation room in satisfactory condition and tolerated the procedure well. All needle and sponge counts were correct at the end of the procedure. Sangita Hirsch Pac assisted due to lack of resident availability and was necessary for positioning, draping, retraction, wound closure deep layers, subcutaneous tissue, and skin closure and was necessary for assisting with the case. I attest to the content of the Intraoperative Record and any orders documented therein. Any exceptions are noted below.
[2024-03-21] MEDS: VISIPAQUE IV ONE (09:41)
[2024-03-21] MEDS: MEPERIDINE HCL 50 MG/ML CARP IV STA (10:15)
[2024-03-21] MEDS: MEPERIDINE HCL 25 MG/ML CARP/VIAL ONE (10:33)
--- NOTE | 2024-03-21 11:15 | Anesthesiology Progress Note ---
Date of Service March 21, 2024 Anesthesia Post Procedure Vital Signs Vital Signs: Temp Pulse Resp BP BP Pulse Ox O2 Del Method 03/21/24 11:05 72 16 139/43 L 138/64 94 Room Air 03/21/24 10:55 71 18 132/82 145/79 H 96 Room Air 03/21/24 10:45 76 15 130/77 145/77 H 98 Room Air 03/21/24 10:35 76 14 147/73 H 153/85 H 98 Nasal Cannula 03/21/24 10:25 80 16 133/74 186/83 H 95 Nasal Cannula 03/21/24 10:15 79 20 123/86 179/101 H 97 Nasal Cannula 03/21/24 10:07 36.2 C L 79 20 158/93 H 186/90 H 97 Nasal Cannula 03/21/24 06:37 36.8 C 63 20 126/72 95 Room Air O2 Flow Rate 03/21/24 11:05 03/21/24 10:55 03/21/24 10:45 03/21/24 10:35 4 03/21/24 10:25 4 03/21/24 10:15 4 03/21/24 10:07 4 03/21/24 06:37 Transfer of Care Handoff Completed per policy Notes Mental Status: alert / awake / arousable Patient Amnestic to Procedure: Yes Nausea / Vomiting: adequately controlled Pain: adequately controlled Airway Patency, RR, SpO2: stable & adequate BP & HR: stable & adequate Hydration State: stable & adequate Anesthetic Complications: no major complications apparent
--- OUTSIDE RECORDS SUMMARY | 2024-03-21 11:21 | External Medical Summary | Continuity of Care Document ---
Author Name Unknown Organization [facility] [address] Address [address] [place], [place] [id number] Care Team Providers Care Lining Scrubber Name Role Phone Melimonica Ashleigh M Primary Care Physician [phone] [id number] Date[facility] 03/03/24 - 03/03/[address] [facility] [address] [facility] [address], [facility] [address] [place], [place] [phone] Encounter Diagnosis Occlusion and stenosis of unspecified carotid artery(Final) - Discharge Disposition: Home or Self Care Attending Physician: MD Palmer Eugene J Referring Physician: MD Palmer Eugene J Allergies, Adverse Reactions, Alerts No Known Allergies Medications aspirin 81 mg oral delayed release tablet Start: 03/01/24 9:08:00 AM EDT, 1 tab, PO, Daily Start Date: 03/01/24 Status: Ordered atorvastatin 40 mg oral tablet TAKE 1 TABLET BY MOUTH EVERY DAY IN THE MORNING Start Date: 03/01/24 Status: Ordered clopidogrel 75 mg oral tablet TAKE 1 TABLET BY MOUTH EVERY DAY IN THE MORNING Start Date: 03/01/24 Status: Ordered multivitamin Start: 03/01/24 9:09:00 AM EDT, 1 tab, PO, Daily Start Date: 03/01/24 Status: Ordered Problem List Condition Confirmation Course Effective Dates Status Health St atus Informant Carotid artery stenosis, symptomatic Confirmed Active Wrist pain, left Confirmed Active Procedures Procedure Date Related Diagnosis Body Site Status None Completed Results Laboratory List Name Date Platelet Function (P2Y12 Receptor) (PLT FUNCTION P2Y12) 03/03/24 Most recent to oldest [Reference Range]: 1 P2Y12 Platelet Function [194-418 PRU] 14 6 PRU 1 *LOW* (03/03/24 10:32 AM) 1Result Comment: PRU reference range is 194-418 (healthy adults, no drug treatment). Post Drug Results: Lower PRU levels are expected following treatment with antiplatelet drugs. Post-treatment values are usually below the stated reference range above. The post-drug PRU values reported in the VerifyNOW P2Y12 package insert are 18-435. This broader range reflects the variability in drug response and is consistent with significant numbers of patients with decreased sensitivity to P2Y12 receptor antagonists (prasugrel or clopidogrel). Clinical studies suggest an on-treatment PRU>230 indicates less than optimal response to therapy, and PRU<208 at 12-24 hours after percutaneous intervention or during follow-up is associated with a lower risk of cardiovascular events (1). (1).Standard-vs high-dose clopidogrel based on platelet function testing after percutaneouscoronary intervention: the GRAVITAS randomized trial. Angel, et al. LISE. 2010December 03; 305(11): 5860-5550. doi: 10.1001/lise.2010.290 Social History Social History Type Response Smoking Status Never smoked cigaret emely Sex Male Patient Care team information Care Team Personnel Name: DO Jackson Susan M Position: Referring DIRECT Member Role: Primary Care Provider Address: Address: [address] [place] [id number] Name: Emy Roque Position: HIS Supervisor_P Member Role: HIS Lifetime Name: Ailyn Garcia Position: HIS Supervisor_P Member Role: HIS Lifetime Care Team Related Persons Name: SAROJ NICOLE Address: home [address] [place] [address] BRENDA VALENTIN [phone] Name: NANCI DECEMBER Address: home No Address Provided BRENDA VALENTIN [phone]
--- OUTSIDE RECORDS SUMMARY | 2024-03-21 11:21 | External Medical Summary | Summary of Care ---
Author Name Unknown Organization [facility] Address [address] [place] [address] Phone [phone] Care Team Providers Care Plow Shaker Name Role Phone MeliAshleigh anderson Primary Care Provider + [phone] Encounter Details Date Type Department Care Team (Late st Contact Info) Description 03/09/2024 10:00 AM EDT Scheduled Telephone Care Coordination and Integration [address], [place] [phone] Jessy Stratton [facility] [address] [place] [address] Allergies No known active allergiesdocumented as of this encounter (statuses as of 03/09/2024) Medications Medication Sig Dispensed Refills Start Date End Date Status Vitamin C 500 MG Oral Tablet (Ascorbic Acid) Take 1 Tablet by mouth in the morning. 01/23/2024 Active Multivitamin Adults 50+ Oral Tablet Take 1 Tablet by mouth in the morning. 01/23/2024 Active Aspirin 81 MG Oral Tablet Delayed Release (Aspirin 81) Take 1 Tablet by mouth in the morning. Active Atorvastatin Calcium 40 MG Oral Tablet (Lipitor)Indications:Hy perlipidemia, unspecified hyperlipidemia type,History of CVA (cerebrovascular accident) Take 1 Tablet by mouth in the morning. 90 Tablet 3 02/22/2024 Active Clopidogrel Bisulfate 75 MG Oral Tablet (pLAVix)Indications:His tory of CVA (cerebrovascular accident) Take 1 Tablet by mouth in the morning. 90 Tablet 3 02/22/2024 Active metFORMIN HCl 500 MG Oral Tablet (Glucophage)Indications :Type 2 diabetes mellitus without complication, without long-term current use of insulin (HCC) Take 1 Tablet by mouth daily with breakfast. 90 Tablet 3 02/22/2024 Active documented as of this encounter (statuses as of 03/09/2024) Active Problems Problem Noted Date Diagnosed Date Type 2 diabetes mellitus without complication Hyperlipidemia 02/22/2024 Hemiplegia affecting left nondominant side 02/21 Phantom limb syndrome with pain 06/18/2022 documented as of this encounter (statuses as of 03/09/2024) Immunizations Name Administration Dates Next Due TDAP, Age 7 and older, IM (Adacel) 02/18/2010 Varicella Zoster Vaccine (Adult) 09/26/2012 documented as of this encounter Social History Tobacco Use Types Packs/Day Years Used Date Smoking Tobacco: Former Passive Smoke Exposure: Past Smokeless Tobacco: Former Snuff Comments:Smoked corn cobbed pipe as a teen Alcohol Use Standard Drinks/Week Comments No 0 (1 standard drink = 0.6 oz pur e alcohol) used to drink on occasion PHQ-2 Answer Date Recorded PHQ Adult Total Score 0 02/17/2024 Hunger Vital Sign Answer Date Recorded Within the past 12 months, y ou worried that your food would run out before you got the money to buy more. Never true 02/17/20 24 Within the past 12 months, t he food you bought just didn't last and you didn't have money to get more. Never true 02/17/2024 Childcare Answer Date Recorded Do you feel overwhelmed with taking care of a child, family member or friend? No 02/17/2024 Does your family need help f inding childcare? (Household - for ages 0-17 years) Not on file 02/17/2024 Clothing Answer Date Recorded Have you been unable to get clothing when it was really needed? No 02/17/2024 Is your family able to get c lothes or diapers when needed? (Household - for ages 0-17 years) Not on file 02/17/2024 Personal Safety Answer Date Recorded Do you feel unsafe or have concerns for your saf ety? No 02/17/2024 Do you have concerns for you r family's safety? (Household - for ages 0-17 years) Not on file 02/17/2024 Utilities Answer Date Recorded Do you have trouble paying y our heating, water, or electric bill? No 02/17/2024 Is your family able to pay t he heat, water, or electric bill? (Household - for ages 0-17 years) Not on file 02/17/2024 Does your family have access to good internet? (Household - for ages 0-17 years) Not on file 02/17/2024 Employment Status Answer Date Recorded Are you unemployed or without regular income? No 02/17/2024 Does the household have a re gular source of income? (Household - for ages 0-17 years) Not on file 02/17/2024 Social Connections Answer Date Recorded How often do you feel lonely or isolated from th ose around you? Never 02/17/2024 Financial Resource Strain Answer Date R ecorded Do you have any trouble payi ng for your medications, or do you think you might in the future? No 02/17/2024 Does your family have troubl e paying for medicine? (Household - for ages 0-17 years) Not on file 02/17/2024 Transportation Needs Answer Date Record ed READ ONLY Do you have troubl e getting a ride to medical visits or work? Never True 02/17/2024 Does your family have a hard time getting a ride to doctors visits? (Household - for ages 0-17 years) Not on file 02/17/2024 Has lack of transportation k ept you from medical appointments, meetings, work, or from getting things needed for daily living? Check all that apply. (Adult - for ages 18 years and over) Not on file 02/17/2024 Do you (or your family) have trouble finding or paying for a ride (transportation)? (Household - for ages 0-17 years) Not on file 02/17/2024 Housing Stability Answer Date Recorded Do you currently live in a s helter or have no steady place to sleep at night? No 02/17/2024 READ ONLY Do you think you a re at risk of becoming homeless? No 02/17/2024 Does your family worry about paying for your home or becoming homeless? (Household - for ages 0-17 years) Not on file 0 02/17/2024 Are you homeless or worried that you might be in the future? (Adult - for ages 18 years and over) Not on file Are you (or your family) gilda eless or worried that you might be in the future? (Household - for ages 0-17 years) Not on file Food Insecurity Answer Date Recorded Do you need food for this week? No 02/17/2024 Are you able to get enough f ood for your family? (Household - for ages 0-17 years) Not on file 02/17/2024 Does your family need food t his week? (Household - for ages 0-17 years) Not on file 02/17/2024 Do you always have enough fo od for your family? (Household - for ages 0-17 years) Not on file 02/17/2024 Sex and Gender Information Value Date Recorded Sex Assigned at Male 02/25/2023 8:34 AM EDT Gender Identity Male 02/25/2023 8:34 AM EDT Sexual Orientation Straight 02/25/2023 8: 34 AM EDT Job Start Date Occupation Industry Not on file Not on file Not on file documented as of this encounter Progress Notes * Jessy Stratton [facility] - 03/09/2024 10:03 AM EDT Telemedicine visit: No [facility] (KENNETH) documentation: CHW bahman call per MANDIE Estrada CM No answer, left VM requesting call back Electronically signed by Jessy Stratton [facility] at 03/09/2024 10:04 AM EDT documented in this encounter Plan of Treatment Upcoming Encounters Date Type Department Care Team (Late st Contact Info) Description 04/10/2024 4:00 PM EDT Office Visit Family Practice [address] [place] [address] [address] [place] [phone] Ashleigh Jackson, [address] [place] [address] 07/20/2024 10:40 AM EDT Office Visit Family Practice [address] [facility] [address] [place] [phone] Ashleigh Jackson, [address] [place] [address] Health Maintenance Due Date Last Done Comments HbA1c 1951 Pneumococcal Vaccine: 65+ Years (1 of 2 - PCV) 1950 Albumin/Creatinine Ratio 1962 Diabetic Eye Exam 1962 Diabetic Foot Exam 1962 Hepatitis C Screening 1962 Zoster Vaccines (2 of 3) 11/21/2012 09/26/2012 DTaP,Tdap,and Td Vaccines (2 - Td or Tdap) 02/19/2020 02/18/2010, 09/20/1992 COVID-19 Vaccine (1 - 2022-2 4 season) 2023 Influenza Vaccine (FLU shot) (Season Ended) 2024 GFR 02/09/2025 02/10/2024, 02/03/2024, 01/27/2024 Depression Screening 02/16/2025 02/17/2024 GARDASIL-HPV IMMUNIZATION SERIES Aged Out No longer eligible b ased on patient's age to complete this topic Hepatitis B Aged Out No longer eligi ble based on patient's age to complete this topic MENINGOCOCCAL (MENACTRA/MENVEO) Aged Out No longer eligible b ased on patient's age to complete this topic documented as of this encounter Medical Devices Not on filedocumented as of this encounter Care Teams Plow Shaker Relationship Specialty Start Date End Date Ashleigh Jackson DO PCP - General Family Medicine 06/18/22 documented as of this encounter
--- OUTSIDE RECORDS SUMMARY | 2024-03-21 11:21 | External Medical Summary | Continuity of Care Document ---
Author Name Unknown Organization [facility] [address] [place], [place] [id number] Care Team Providers Care Occupational Health Nurse Name Role Phone Ashleigh Jackson Rancho Primary Care Physician [phone] [id number] Date(s): 03/01/24 - 03/01/24 [facility] [address], [address] [place] [address] [phone] Encounter Diagnosis Carotid artery stenosis, symptomatic(Discharge Diagnosis) - 03/01/24 Discharge Disposition: Home or Self Care Attending Physician: MD Estela, Alex Stephens Allergies, Adverse Reactions, Alerts No Known Allergies [...] PO, Daily Start Date: 03/01/24 Status: Ordered Mental Status 03/01/24 Barriers to Learning one year None evide nt Mandatory Health Literacy Documentation Yes Health Literacy Communication Barriers N ever Primary Language Turkish Problem List Condition Confirmation Course Effective Dates Status Health St atus Informant Carotid artery stenosis, symptomatic Confirmed Active Wrist pain, left Confirmed Active Diagnosis Diagnosis Type Effective Dates Health Status Clinical Service Informant Carotid artery stenosis, symptomatic Discharge Diagnosis 03/01/24 Non-Specified Procedures Procedure Date Related Diagnosis Body Site Status None Completed Vital Signs Most recent to oldest [Reference Range]: 1 Heart Rate 74 bpm (03/01/24 8:18 AM) Blood Pressure 140/76mmHg (03/01/24 8:18 AM) Cuff Pulse Pressure 64 mmHg (03/01/24 8:18 AM) BP Location # 1 Right Arm (03/01/24 8:18 AM) Social History Social History Type Response Smoking Status Never smoked cigaret emely Sex Male Patient Care team information Care Team Personnel Name: DO Jackson Susan M Position: Referring DIRECT Member Role: Primary Care Provider Address: Address: [address] [place] [address] Name: Emy Roque Position: HIS Supervisor_P Member Role: HIS Lifetime Name: Ailyn Garcia Position: HIS Supervisor_P Member Role: HIS Lifetime Care Team Related Persons Name: SAROJ NICOLE Address: home [address] [place] [address] BRENDA VALENTIN [phone] Name: NANCI DECEMBER Address: home No Address Provided BRENDA VALENTIN [phone]
--- OUTSIDE RECORDS SUMMARY | 2024-03-21 11:21 | External Medical Summary | Summary of Care ---
Author Name Unknown Organization [facility] Address [address] [place] [address] Phone [phone] Care Team Providers Care Home Lending Officer Name Role Phone Ashleigh Jackson DO Primary Care Provider [phone] Reason for Visit * Reason Onset Date Comments Test Results 03/16/202403/16 Encounter Details Date Type Department Care Team (Late st Contact Info) Description 03/16/2024 Telephone Family Practice [address] [place] [phone] Ashleigh Jackson DO [address] [place] [address] Test Results (03/16) Allergies No known active allergiesdocumented as of this encounter (statuses as of 03/16/2024) Medications Medication Sig Dispensed Refills Start Date [...] as of this encounter (statuses as of 03/16/2024) Active Problems Problem Noted Date Diagnosed Date Type 2 diabetes mellitus without complication Hyperlipidemia 02/22/2024 Hemiplegia affecting left nondominant side 02/21 Phantom limb syndrome with pain 06/18/2022 documented as of this encounter (statuses as of 03/16/2024) Immunizations Name Administration Dates Next Due TDAP, [...] on file documented as of this encounter Miscellaneous Notes * Telephone Encounter - Beatrice Patterson LPN - 03/16/2024 12:08 PM EDT Call placed to patient. Spoke to with pt in background and relayed information from Dr. Jackson. Acknowledged understanding and no questions at this time. * Telephone Encounter - Ashleigh Jackson DO - 03/16/2024 7:11 AM EDT Please let pt know: His US showed that the thyroid nodule had no concerning features and does not require biopsy. His heart monitor showed no A.fib or flutter. This is good news as it indicates this was not a contributor to his stroke. documented in this encounter Plan of Treatment Upcoming Encounters Date Type Department Care Team (Late st Contact Info) Description 04/10/2024 4:00 PM EDT Office Visit Family Practice [address], [address] [place] [phone] Ashleigh Jackson DO [address] [place] [address] 07/20/2024 10:40 AM EDT Office Visit Family Practice [address] [place] [address] [place] [phone] Ashleigh Jackson DO [address] [place] [address] Health Maintenance Due Date Last Done Comments [...] filedocumented as of this encounter Care Teams Home Lending Officer Relationship Specialty Start Date End Date Ashleigh Jackson DO PCP - General Family Medicine 06/18/22 documented as of this encounter
--- OUTSIDE RECORDS SUMMARY | 2024-03-21 11:21 | External Medical Summary | Summary of Care ---
Author Name Unknown Organization [facility] Address [address] [place] [address] Phone [phone] Care Team Providers Care Automobile Parts Assembler Name Role Phone MeliAshleigh anderson Primary Care Provider + [phone] Encounter Details Date Type Department Care Team (Late st Contact Info) Description 03/16/2024 9:15 AM EDT Scheduled Telephone Care Coordination and Integration [address], [place] [phone] Jessy Stratton [facility] Drawbench Operator [address], [place] [phone] Allergies No known active allergiesdocumented as of [...] Progress Notes * Jessy Stratton [facility] Draw[facility] Operator - 03/16/2024 9:33 AM EDT Telemedicine visit: No [facility] Drawbench Operator (KENNETH) documentation: CHW bahman call per MANDIE Estrada CM No answer, left VM requesting call back documented in this encounter Plan of Treatment Upcoming Encounters Date Type Department Care Team (Late st Contact Info) Description 04/10/2024 4:00 PM EDT Office Visit Family Practice [address] [place] [address] [address] [facility] [place] [phone] Ashleigh Jackson, [address] [place] [address] 07/20/2024 10:40 AM EDT Office Visit Family Practice [address] [facility] [address] [facility] [place] [phone] Ashleigh Jackson, [address] [place] [address] Health Maintenance Due Date Last Done Comments [...] filedocumented as of this encounter Care Teams Automobile Parts Assembler Relationship Specialty Start Date End Date Ashleigh Jackson DO PCP - General Family Medicine 06/18/22 documented as of this encounter
[2024-03-21] MEDS ORDERED: PHENYLEPHRINE/NSS 25 MG/250 ML BAG IV PRN (11:50)
[2024-03-21] MEDS ORDERED: oxyCODONE/ACETAMINOPHEN 5mg/325mg TAB PO PRN (11:50)
[2024-03-21] MEDS ORDERED: PHARMACY GLYCEMIC MGMT CONSULT PRN (11:50)
[2024-03-21] MEDS ORDERED: STAT IV Infusion **Titration per Protocol STA (11:50)
[2024-03-21] MEDS ORDERED: GLUCOSE 40% GEL 15 GM TUBE PO PRN (12:15)
[2024-03-21] MEDS ORDERED: DEXTROSE 50% 50 ML SYRINGE IV PRN (12:15)
[2024-03-21] MEDS ORDERED: CARBOHYDRATES FOR HYPOGLYCEMIA PO PRN (12:15)
[2024-03-21] MEDS ORDERED: GLUCOSE 10 TAB/TUBE PO PRN (12:15)
[2024-03-21] MEDS ORDERED: GLUCAGON FOR INJ 1 MG VIAL IM PRN (12:15)
--- NOTE | 2024-03-21 12:43 | Pharmacy Report ---
Pharmacy Glycemic Short Note 2 - Date of Service March 21, 2024 - Glycemic Short BSG Results (Last 24 hours): 03/21/24 03/21/24 03/21/24 06:33 10:14 12:21 POC Glucose 130 H 159 H 156 H OUTPATIENT ANTIDIABETIC REGIMEN: * metformin 500 mg qAM * Alc 6.8% 01/25/24 ASSESSMENT: * 78 yo male admitted post TCAR with history of type 2 diabetes on metformin, outpatient A1c indicates good outpatient control (if without significant hypoglycemia) * Will start loose weight based novolog parameters, hold basal for now PLAN FOR INPATIENT GLYCEMIC CONTROL: * Hold outpatient oral diabetes medications * Basal insulin * Held * Bolus insulin * NovoLog per scale ACHS or Q6hrs while NPO * Goal Range: Low 110 mg/dL - High 150 mg/dL * Correction Factor: 40 mg/dL/unit * Nutritional / Prandial insulin per carb ratio of 1 unit per 15 grams CHO consumed
--- NOTE | 2024-03-21 12:52 | Critical Care Consultation ---
Date of Consultation March 21, 2024 Assessment & Plan (1) Stenosis of left internal carotid artery: (2) Type 2 diabetes mellitus: (3) History of stroke: Plan Impression: 78-year-old male with recent right MCA stroke with left carotid stenosis asymptomatic status post TCAR today. He is doing well clinically. Recommendation: 1. Carotid stenosis: Status post TCAR. Management per vascular surgery. Aspirin and Plavix per vascular surgery 2. Diabetes: Continue glycemic protocol. Can restart metformin in a.m. 3. Hyperlipidemia: Continue lipid-lowering agent. Anticipate relatively short ICU stay. Will follow overnight. If he does well, will defer disposition to vascular surgery and likely sign off in a.m. Thanks for the opportunity participate in the care of this patient. Feel free to contact us with questions or concerns History of Present Illness Attending Physician: Alex Palmer MD History of Present Illness Asked by vascular surgery to assist in evaluation management this patient status post transcarotid revascularization. History is obtained from discussion with the patient as well as review the electronic medical record. Patient is a 78-year-old male status post right hemispheric CVA with left internal carotid stenosis. He followed up in the vascular surgery clinic and was felt to be an appropriate candidate for TCAR of the left internal carotid which he underwent today. Has been hemodynamically stable and returns to the ICU with an arterial line in place for monitoring. Patient does not report any new neurological symptoms. She is paretic in the left foot. 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 He is having no swallowing difficulties or speech difficulties. He denies any chest pain palpitation shortness of breath or other constitutional symptoms. He is currently eating lunch and feels that he is doing well clinically Allergies Allergy/AdvReac Type Severity Reaction Status Date / Time No Known Allergies Allergy Mild Verified 03/21/24 06:36 Home Medications Medication Instructions Recorded Confirmed Type ascorbic acid (vitamin C) 500 mg 1,000 mg PO QAM 01/23/24 03/21/24 History tablet (Vitamin C) multivitamin 1 tab PO QAM 01/23/24 03/21/24 History aspirin 81 mg tablet,delayed 81 mg PO QAM #30 tabs 01/26/24 03/21/24 Rx release atorvastatin 40 mg tablet 40 mg PO QAM #30 tabs 01/26/24 03/21/24 Rx clopidogrel 75 mg tablet 75 mg PO QAM #20 tabs 01/26/24 03/21/24 Rx metformin 500 mg tablet 500 mg PO QAM 03/03/24 03/21/24 History Patient History Medical History Type 2 diabetes mellitus Per [facility] records Taking Metformin, last A1C 01/25/24 6.8% Thyroid nodule right side, monitoring Hearing loss + hearing aids ("doesn't wear often") History of hypertension Chronic anemia History of stroke Ischemic stroke 01/23/24 > residual left leg deficits, found to have significant carotid disease (reason for upcoming surgery) Left carotid artery stenosis Neck CTA 01/23/24: High-grade stenosis at the takeoff of the LICA of approximately 90% Phantom limb syndrome with pain Lyme disease Dx 2020 per records Surgical History Amputation of left arm 2017, 2/2 trauma Hx of colonoscopy Family History Father Myocardial infarction Coronary heart disease Brother Stroke Sister Cancer Social History Smoking Status: Former smoker Tobacco Type: Smokeless Tobacco (Dip or Chew) Smoking End Date: many years ago, occasional cigar; Second Hand Exposure: No; Do You Dip or Chew Tobacco: Yes (hx quit 1976; advised); Tobacco Cessation Education Requested by Patient: No Hx Alcohol Use: No Hx Substance Use: No Preferred Language: Persian Communication Ability: Effective Hearing Ability: Normal Heading Maker Required: No Beliefs That Will Affect Care: None marital status: Current Living Situation: Spouse current occupational status: retired Other Information That Helps Us Care for You: No Feels Safe at Home: Yes Safety Concerns: Feels Safe At This Time Seatbelt Use: always Sunscreen Use: No Assistive Devices: Walker and Wheelchair Assistive Devices Comment: reading glasses prn Review of Systems Review of Systems: All systems reviewed & are unremarkable except as noted in Subjective Physical Exam Constitutional: WD/WN, vitals as above cooperative and comfortable; not in distress ENMT: Ears: no hearing impairment Neck: trachea midline Respiratory: normal respiratory effort, lungs clear to auscultation Auscultation: + diminished lung sounds Cardiovascular: Rate/Rhythm: regular rate and regular rhythm Vessels: posterior tibial pulses present, dorsalis pedis pulses present and radial pulses present (LUE amputation); + abnormal peripheral pulses Extremities: normal capillary refill; no edema Gastrointestinal (Abdomen): Inspection/Auscultation: abdomen normal to inspection and normal bowel sounds Percussion/Palpation: abdomen soft; abdomen nontender Musculoskeletal: Extremities: extremities normal to inspection and + amputation noted (LUE amputation noted); + abnormal strength (LLE 4/5) Skin: no rashes, warm and dry Neurologic: moves all extremities, + focal motor deficit (LLE weakness, L facial droop) and awake; not confused Speech / Cognition: + expressive aphasia Psychiatric: A+Ox3, euthymic affect Results & Data Results & Data Vital Signs (Past 12 Hours) Vital Signs Temp Pulse Pulse Resp BP BP BP 03/21/24 12:04 36.4 C L 72 18 121/84 176/83 H 03/21/24 11:48 68 20 135/79 03/21/24 11:15 68 19 102/58 L 144/77 H 03/21/24 11:05 72 16 139/43 L 138/64 03/21/24 10:55 71 18 132/82 145/79 H 03/21/24 10:45 76 15 130/77 145/77 H 03/21/24 10:35 76 14 147/73 H 153/85 H 03/21/24 10:25 80 16 133/74 186/83 H 03/21/24 10:15 79 20 123/86 179/101 H 03/21/24 10:07 36.2 C L 79 20 158/93 H 186/90 H 03/21/24 06:37 36.8 C 63 20 126/72 Pulse Ox O2 Del Method O2 Flow Rate 03/21/24 12:04 94 Room Air 03/21/24 11:48 98 Room Air 03/21/24 11:15 94 Room Air 03/21/24 11:05 94 Room Air 03/21/24 10:55 96 Room Air 03/21/24 10:45 98 Room Air 03/21/24 10:35 98 Nasal Cannula 4 03/21/24 10:25 95 Nasal Cannula 4 03/21/24 10:15 97 Nasal Cannula 4 03/21/24 10:07 97 Nasal Cannula 4 03/21/24 06:37 95 Room Air Coding Level of Care Code 59034 IN/OBS CONSULT LVL 3,45M Diagnoses Stenosis of left internal carotid artery I65.22 Type 2 diabetes mellitus E11.9 History of stroke Z86.73
[2024-03-21] MEDS: INSULIN ASPART PER UNIT CHARGE SC SCH (12:58)
[2024-03-21] MEDS: ceFAZolin 2000MG 2,000 MG/15 ML SYR IV SCH (16:18)
[2024-03-21] MEDS: LACTATED RINGER'S 1,000 ML IV SCH (20:11)
--- NOTE | 2024-03-22 07:18 | Critical Care Progress Note ---
Date of Service March 22, 2024 Assessment & Plan (1) Stenosis of left internal carotid artery: (2) Type 2 diabetes mellitus: (3) History of stroke: Plan Impression: 78-year-old male with recent right MCA stroke with left carotid stenosis asymptomatic status post TCAR yesterday. He is doing well clinically. Recommendation: 1. Carotid stenosis: Status post TCAR. Management per vascular surgery. Aspirin and Plavix per vascular surgery 2. Diabetes: Continue glycemic protocol. Continue metformin 3. Hyperlipidemia: Continue lipid-lowering agent. Disposition per vascular surgery. Patient is doing well clinically. His critical care issues have resolved. Critical care will sign off. Feel free to contact us with questions or concerns Admission and Anticipated Discharge Date Admission Date: March 21, 2024 Subjective Patient seen and examined. EMR reviewed. The patient is awake alert conversant and sitting up. He is tolerating a diet. He denies any chest pain or palpitations. He is breathing well. He is not having any voice changes or difficulty swallowing or phonating. He does not report any numbness tingling or other neurological symptoms. Blood pressure has been stable overnight Review of Systems Review of Systems: All systems reviewed & are unremarkable except as noted in Subjective Physical Exam Constitutional: WD/WN, vitals as above cooperative and comfortable; not in distress ENMT: Ears: no hearing impairment Neck: trachea midline Respiratory: normal respiratory effort, lungs clear to auscultation Auscultation: + diminished lung sounds Cardiovascular: Rate/Rhythm: regular rate and regular rhythm Vessels: posterior tibial pulses present, dorsalis pedis pulses present and radial pulses present (LUE amputation); + abnormal peripheral pulses Extremities: normal capillary refill; no edema Gastrointestinal (Abdomen): Inspection/Auscultation: abdomen normal to inspection and normal bowel sounds Percussion/Palpation: abdomen soft; abdomen nontender Musculoskeletal: Extremities: extremities normal to inspection and + amputation noted (LUE amputation noted); + abnormal strength (LLE 4/5) Skin: no rashes, warm and dry Neurologic: moves all extremities, + focal motor deficit (LLE weakness, L facial droop) and awake; not confused Speech / Cognition: + expressive aphasia Psychiatric: A+Ox3, euthymic affect Results & Data Results & Data Vital Signs (Past 12 Hours) Vital Signs Temp Pulse Pulse Resp BP BP Pulse Ox 03/22/24 06:03 67 19 95 03/22/24 06:00 151/74 H 03/22/24 06:00 151/74 H 03/22/24 06:00 151/74 H 03/22/24 05:03 64 20 94 03/22/24 05:00 36.4 C 03/22/24 05:00 126/76 03/22/24 04:03 64 21 93 03/22/24 04:00 130/72 03/22/24 03:48 63 19 94 03/22/24 03:03 64 18 93 03/22/24 03:00 121/70 03/22/24 03:00 121/70 03/22/24 03:00 121/70 03/22/24 01:57 69 16 94 03/22/24 01:36 69 13 94 03/22/24 01:21 63 19 98 03/22/24 01:15 71 20 91 03/22/24 01:12 71 18 91 03/22/24 01:06 69 18 91 03/22/24 01:00 128/78 03/22/24 01:00 69 18 93 03/22/24 00:12 68 20 93 03/22/24 00:00 139/77 03/22/24 00:00 139/77 03/22/24 00:00 36.6 C 03/22/24 00:00 70 03/21/24 23:51 70 20 93 03/21/24 23:03 69 20 94 03/21/24 23:00 133/77 03/21/24 23:00 133/77 03/21/24 23:00 133/77 03/21/24 22:51 72 22 95 03/21/24 22:06 84 21 94 03/21/24 22:00 135/80 03/21/24 22:00 36.5 C 62 23 135/80 92 03/21/24 21:48 70 18 93 03/21/24 21:00 75 18 94 03/21/24 21:00 133/79 03/21/24 21:00 133/79 03/21/24 21:00 133/79 03/21/24 21:00 03/21/24 20:00 141/82 H 03/21/24 20:00 141/82 H 03/21/24 20:00 72 22 94 03/21/24 20:00 36.5 C 03/21/24 19:30 71 13 98 O2 Del Method 03/22/24 06:03 03/22/24 06:00 03/22/24 06:00 03/22/24 06:00 03/22/24 05:03 03/22/24 05:00 03/22/24 05:00 03/22/24 04:03 03/22/24 04:00 03/22/24 03:48 03/22/24 03:03 03/22/24 03:00 03/22/24 03:00 03/22/24 03:00 03/22/24 01:57 03/22/24 01:36 03/22/24 01:21 03/22/24 01:15 03/22/24 01:12 03/22/24 01:06 03/22/24 01:00 03/22/24 01:00 03/22/24 00:12 03/22/24 00:00 03/22/24 00:00 03/22/24 00:00 03/22/24 00:00 03/21/24 23:51 Room Air 03/21/24 23:03 03/21/24 23:00 03/21/24 23:00 03/21/24 23:00 03/21/24 22:51 Room Air 03/21/24 22:06 03/21/24 22:00 03/21/24 22:00 Room Air 03/21/24 21:48 03/21/24 21:00 03/21/24 21:00 03/21/24 21:00 03/21/24 21:00 03/21/24 21:00 Room Air 03/21/24 20:00 03/21/24 20:00 03/21/24 20:00 03/21/24 20:00 03/21/24 19:30 Coding Level of Care Code 26921 SUB INP/OBS CARE 2/35MIN Diagnoses Stenosis of left internal carotid artery I65.22 Type 2 diabetes mellitus E11.9 History of stroke Z86.73
[2024-03-22] MEDS: MULTIVITAMIN TAB PO SCH (07:52)
[2024-03-22] MEDS: ASPIRIN 81 MG ECTAB PO SCH (07:52)
[2024-03-22] MEDS: CLOPIDOGREL BISULFATE 75 MG TAB PO SCH (07:53)
[2024-03-22] MEDS: ASCORBIC ACID 500 MG TAB PO SCH (07:53)
[2024-03-22] MEDS: ATORVASTATIN 40 MG TAB PO SCH (07:53)
[2024-03-22] MEDS: LANTUS PER UNIT CHARGE SC ONE (08:28)
--- NOTE | 2024-03-22 09:06 | Surgery Progress Note ---
Date of Service March 22, 2024 Assessment & Plan (1) Stenosis of left internal carotid artery: Plan: Pt now POD #1 after L TCAR. Doing well post op. OK for d/c home today. Admission and Anticipated Discharge Date Admission Date: March 21, 2024 Subjective 78 yo M POD #1 after uncomplicated L TCAR, seen in f/u today. Pt states feeling well. Admits minimal pain L neck incision. No other complaints. Review of Systems Review of Systems: All systems reviewed & are unremarkable except as noted in HPI & below Physical Exam Constitutional: WD/WN, vitals as above not in distress Neck: L supraclavicular incision C/D/I, +mild local ecchymosis, tenderness, edema. No hematoma. Respiratory: normal respiratory effort, lungs clear to auscultation Auscultation: + diminished lung sounds Cardiovascular: Rate/Rhythm: regular rate and regular rhythm Vessels: + abnormal peripheral pulses Extremities: normal capillary refill Gastrointestinal (Abdomen): Inspection/Auscultation: abdomen normal to inspection and normal bowel sounds Percussion/Palpation: abdomen soft; abdomen nontender Musculoskeletal: no cyanosis or clubbing, extremities motor strength 5/5 (LUE above elbow amputation noted) Skin: no rashes, warm and dry Neurologic: moves all extremities and awake; no focal motor deficits and not confused Psychiatric: A+Ox3, euthymic affect Results & Data Vital Signs (Past 12 Hours) Vital Signs Temp Pulse Pulse Resp BP BP Pulse Ox 03/22/24 08:00 71 19 131/79 94 03/22/24 07:21 69 18 129/79 98 03/22/24 06:03 67 19 95 03/22/24 06:00 151/74 H 03/22/24 06:00 151/74 H 03/22/24 06:00 151/74 H 03/22/24 05:03 64 20 94 03/22/24 05:00 36.4 C 03/22/24 05:00 126/76 03/22/24 04:03 64 21 93 03/22/24 04:00 130/72 03/22/24 03:48 63 19 94 03/22/24 03:03 64 18 93 03/22/24 03:00 121/70 03/22/24 03:00 121/70 03/22/24 03:00 121/70 03/22/24 01:57 69 16 94 03/22/24 01:36 69 13 94 03/22/24 01:21 63 19 98 03/22/24 01:15 71 20 91 03/22/24 01:12 71 18 91 03/22/24 01:06 69 18 91 03/22/24 01:00 128/78 03/22/24 01:00 69 18 93 03/22/24 00:12 68 20 93 03/22/24 00:00 139/77 03/22/24 00:00 139/77 03/22/24 00:00 36.6 C 03/22/24 00:00 70 03/21/24 23:51 70 20 93 03/21/24 23:03 69 20 94 03/21/24 23:00 13377 03/21/24 23:00 133/77 03/21/24 23:00 133/77 03/21/24 22:51 72 22 95 03/21/24 22:06 84 21 94 03/21/24 22:00 135/80 03/21/24 22:00 36.5 C 62 23 135/80 92 03/21/24 21:48 70 18 93 O2 Del Method 03/22/24 08:00 Room Air 03/22/24 07:21 Room Air 03/22/24 06:03 03/22/24 06:00 03/22/24 06:00 03/22/24 06:00 03/22/24 05:03 03/22/24 05:00 03/22/24 05:00 03/22/24 04:03 03/22/24 04:00 03/22/24 03:48 03/22/24 03:03 03/22/24 03:00 03/22/24 03:00 03/22/24 03:00 03/22/24 01:57 03/22/24 01:36 03/22/24 01:21 03/22/24 01:15 03/22/24 01:12 03/22/24 01:06 03/22/24 01:00 03/22/24 01:00 03/22/24 00:12 03/22/24 00:00 03/22/24 00:00 03/22/24 00:00 03/22/24 00:00 03/21/24 23:51 Room Air 03/21/24 23:03 03/21/24 23:00 03/21/24 23:00 03/21/24 23:00 03/21/24 22:51 Room Air 03/21/24 22:06 03/21/24 22:00 03/21/24 22:00 Room Air 03/21/24 21:48
--- NOTE | 2024-03-22 09:07 | Discharge Summary ---
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 Pt with significant aphasia and difficult to elicit hx from him. Family present, states he had a short term event of difficulty speaking 1 day prior to arrival which resolved. THe following day, had worsening sx of aphasia, facial droop, and L sided weakness, so came to [facility]. Underwent tPA administration, however, remains with aphasia, facial droop, and L sided numbness/weakness. Pt denies pain presently. Denies HARRIS, fever, chest pain, palpitations, SOB, abd pain, N/V, rest pain, claudication, other complaints. Admission Exam Per Admitting Provider Constitutional: WD/WN, vitals as a deidre cooperative and comfortable; n ot in distress ENMT: Ears: no hearing i mpairment Neck: trachea midline Respiratory: normal respiratory effort, lungs jean claude ar to auscultation Auscultation: + diminished lung so unds Cardiovascular: Rate/Rhythm: regul ar rate and regula r rhythm Vessels: posterior tibial pulses present, do rsalis pedis pulse s present and radi al pulses present (LUE amputation); + abnormal periphe ral pulses Extrem ities: normal capi llary refill; no e tonya Gastrointestinal ( Abdomen): Inspection/Auscult ation: abdomen nor mal to inspection and normal bowel s ounds Percussion/ Palpation: abdomen soft; abdomen non tender Musculoskeletal: Extremities: extre mities normal to i nspection and + am putation noted (GIOVANNI E amputation noted ); + abnormal stre ngth (LLE 4/5) Skin: no rashes, warm an d dry Neurologic: moves all extremit ies, + focal motor deficit (LLE weak ness, L facial segun op) and awake; not confused Speech / Cognition: + exp ressive aphasia Psychiatric: A+Ox3, euthymic af fect Principal Diagnosis 1. s/p L TCAR 2. L ICA stenosis Discharge Exam Constitutional WD/WN, vitals as above not in distress Respiratory normal respiratory effort, lungs clear to auscultation Auscultation: + diminished lung sounds Cardiovascular Rate/Rhythm: regular rate and regular rhythm Vessels: + abnormal peripheral pulses Extremities: normal capillary refill Gastrointestinal (Abdomen) Inspection/Auscultation: abdomen normal to inspection and normal bowel sounds Percussion/Palpation: abdomen soft; abdomen nontender Musculoskeletal no cyanosis or clubbing, extremities motor strength 5/5 (LUE above elbow amputation noted) Skin no rashes, warm and dry Neurologic moves all extremities and awake; no focal motor deficits and not confused Psychiatric A+Ox3, euthymic affect Discharge Data Allergies Allergy/AdvReac Type Severity Reaction Status Date / Time No Known Allergies Allergy Mild Verified 03/21/24 06:36 Consultations 03/21/24 11:50 Consult Crank Hand Routine Procedures Performed Operation Date: 03/21/24 08:00 Actual Procedures p Left Transcarotid Artery Revascularization(Left) - Alex Tillman MD Ordered Studies 03/21/24 07:19 EV angio carotid cerv LT Routine US EV guide vascular access Routine Hospital Course (1) Stenosis of left internal carotid artery: Pt now POD #1 after L TCAR. Doing well post op. OK for d/c home today. Total Time Total Time Spent Total Time Spent (In Minutes): 0 Discharge Plan Discharge Items Patient Disposition: Home - Self-Care Reason For Visit: Left Carotid Artery Stenosis Discharge Diagnosis: 1. s/p L TCAR 2. L ICA stenosis Activity: Per Instructions section Non-emergency contact: Primary Care Provider and Surgeon Call non-emergency contact if: you have any medication questions, your pain is not controlled, your pain is unusual for you, your pain is concerning for you, you have a fever, your wound has increased redness and your wound has increased drainage Follow-up/Referrals: Alex Tillman MD [Physician] - 04/05/24 8:45 am (with Sangita Hirsch PA-C.) Ashleigh Jackson DO [Primary Care Provider] - 04/10/24 3:40 pm () Diet: Heart Healthy Addtl Attending Provider Instructions: SPECIAL CARE INSTRUCTIONS: Medications: * Continue to take Aspirin, Plavix, and statin medications as directed. DO NOT STOP THESE MEDICATIONS WITHOUT SPEAKING TO DR TILLMAN'S OFFICE. Incision Care: * You may shower, but do not rub incision. You may let the warm soapy water run over it. Be sure to dry the incision well after bathing. * Do not shave directly over the incision until it is healed. * DO NOT IMMERSE THE INCISION IN A TUB/POOL/etc. UNTIL HEALED. Restrictions: * Do not drive for at least one week or if you are still taking any narcotic pain medication. * Do not lift anything heavier than a gallon of milk for one week after going home. Possible Complications: * Numbness - It is normal to have some numbness around the incision. Numbness can extend beyond the incision to areas of the neck, ear and face. The numbness is due to bruising of nerves during the surgery and will gradually improve over a period of months. * Hoarseness/Difficulty Speaking and Swallowing - The bruising of nerves in the neck can also cause a hoarse voice, difficulty speaking or swallowing. This may improve over time, HOWEVER, if it continues for more than a few days please contact our office ([phone]). * Excessive Swelling - There will be some swelling immediately after surgery which usually resolves within one week. If you notice that the swelling is getting worse, notify your surgeon ([phone]). * Drainage/Bleeding - If there is any drainage or bleeding, it should be a very small amount (less than a teaspoon per day). If you have excessive bleeding or drainage from the incision, call your surgeon ([phone]) right away. ACTIVATION OF EMERGENCY MEDICAL SYSTEM: Call 911, immediately, if you experience any of the following: Warning Signs and Symptoms of Stroke: * Sudden numbness or weakness of the face, arm or leg, especially on one side of the body * Sudden confusion, trouble speaking or understanding * Sudden trouble seeing in one or both eyes * Sudden trouble walking, dizziness, loss of balance or coordination * Sudden severe headache with no cause Do not delay calling 911 if you experience any warning signs or symptoms of a stroke. Delay in seeking medical attention may affect what treatments can be given to you. Risk Factors for Stroke: You can reduce your chances of stroke by working with your medical provider to adopt a healthy lifestyle. Some specific ways to lower your chance of stroke are: * If you are a smoker, now is the time to stop smoking cigarettes * If you are diabetic, improve the control of your blood sugars * Avoid excessive amounts of alcohol * Control high blood pressure * Lose weight if you are overweight * Be sure to lead an active lifestyle * Eat a healthy diet low in salt, cholesterol and fat You should know about other risk factors for stroke that you are unable to control. These include: * Age 55 years or older * Male gender * Certain racial groups: , or / * Family History of Stroke, Mini stroke or Heart Attack * Sickle Cell Disease You will be receiving a call from the Vascular Surgery Nurse after you are discharged. FOLLOW UP VISIT: It is important for you to keep your follow up appointments with your medical provider. Keep any scheduled doctor appointments. Pending Studies at Discharge: No Stand-Alone Forms: My [facility], Smoking Cessation Medications and DC Order Prescriptions: Continued multivitamin Tablet 1 tab PO QAM ascorbic acid (vitamin C) [Vitamin C] 500 mg Tablet 1,000 mg PO QAM clopidogrel 75 mg Tablet 75 mg PO QAM Qty: 20 0RF atorvastatin 40 mg Tablet 40 mg PO QAM Qty: 30 0RF aspirin 81 mg Tablet,Delayed Release (Dr/Ec) 81 mg PO QAM Qty: 30 0RF metformin 500 mg Tablet 500 mg PO QAM Discharge Orders: Discharge Order (Routine); Ordered 03/22/24 Ordered By: Sangita Hirsch Admission Data Admit Date/Time: 03/21/24 07:30 Attending Provider: Alex Tillman Admit Provider: Alex Tillman Primary Care Provider: Ashleigh Jackson Other Providers: Pramod Hancock; Patrice Yip; Eliu Llanes; Ever Barba; Cuate Haddad; Sergio Lua; Mychal Carballo; Linda Duenas; Kim Doran; Aston Baird; Tony Wood; Anita Retana
== END 2024-03-22 10:00 | disposition home or self-care (01) | DRG 35 ==
LOC: ASU 05:57 → 1E 07:30
PROC: EV.TCAR (2024-03-21 08:00)